=== PATIENT | male | born 1965 | race Caucasian/White ===

== ENCOUNTER 2020-09-02 19:21 | Emergency (ER) | payer OTHER, SELFPAY ==
--- NOTE | ~2020-09-02 | CT_ITS ---
EXAMINATION: CT ABDOMEN AND PELVIS WITHOUT CONTRAST CLINICAL INFORMATION: Abdominal pain COMPARISON: None TECHNIQUE: Multidetector volumetric imaging was performed from the superior aspect of the liver through the pubic symphysis. Sagittal and coronal reformatted images were obtained on the technologist's workstation. This CT examination was performed using dose optimization techniques as appropriate, variously including the following: *Automated exposure control *Adjustment of mA and/or kV according to patient size (this includes techniques or standardized protocols for targeted exams where dose is matched to indication/reason for exam; i.e. extremities or head) *Use of iterative reconstruction technique DLP: 731 mGy-cm FINDINGS: LUNG BASES: The visualized lung bases are unremarkable. LIVER, GALLBLADDER, AND BILIARY TREE: The liver is normal in size, shape, and attenuation. No focal hepatic lesion or biliary ductal dilatation is present. Status post cholecystectomy. PANCREAS: Unremarkable. SPLEEN: Unremarkable. ADRENAL GLANDS: Unremarkable. KIDNEYS AND URETERS: The kidneys are normal in size, shape, and attenuation. 2 barely perceptible punctate calculi seen in the right kidney (see mosqueda images). No hydronephrosis, hydroureter, or larger or left-sided calculi seen. A 5.2 x 4.7 x 6.8 cm benign Bosniak class I right renal cyst is present. No solid masses are seen. No perinephric stranding. BLADDER: Unremarkable. GASTROINTESTINAL TRACT: The small and large bowel are unremarkable. The appendix is not seen. ABDOMINAL WALL: No significant hernia is appreciated. Small direct inguinal hernias are seen containing only fat. LYMPH NODES: Normal. VASCULAR: Unremarkable. PELVIC VISCERA: Unremarkable. OSSEOUS STRUCTURES: Unremarkable. CT/CT abdomen pelvis wo con IMPRESSION: A significant abnormality crossing acute abdominal pain is not seen. Incidental note is made of cholecystectomy, right renal cyst and tiny punctate nonobstructing right renal calculi.
[2020-09-02 20:56] VITALS: BP 94/52; PULSE 77; RESP 18; TEMP 36.7; O2SAT 97; BMI 32.1
[2020-09-02 21:31] LABS: Glucose Urine UA NEG (NEG); Leukocyte Esterase Urine NEG (NEG); Nitrite Urine NEG (NEG); Urine Blood NEG (NEG); Urine Ketones NEG (NEG); Urine Protein NEG (NEG-TRACE)
[2020-09-02 21:32] LABS: Appearance Urine CLEAR; Color Urine YELLOW
[2020-09-02 23:33] VITALS: BP 160/103; PULSE 69; RESP 18; TEMP 36.8; O2SAT 100
--- NOTE | 2020-09-03 00:08 | ED.ABDPAIN ---
HPI - Abdominal Pain General Chief Complaint: Abdominal Pain Stated Complaint: Abdominal pain/hand cramps Time Seen by Provider: 09/02/20 23:56 Source: patient and application support developer Mode of arrival: ambulatory Limitations: no limitations History of Present Illness HPI narrative: 54-year-old male came in with multiple complaints. Abdominal pain/rectal pain been going for few months, pain is intermittent, described as a sharp pain in the anal area, no trauma or fall recently, no fever or chills, nothing makes the pain worse, nothing make it better. Patient now has no rectal pain or discomfort. Patient also is complaining of itching in the scrotal area for the past few months, patient sexually not active for the last 3 years, no penile discharge, no rashes. Patient also complained of bilateral hands swelling and tingling only at nighttime for the past year. Related Data Allergies Allergy/AdvReac Type Severity Reaction Status Date / Time No Known Allergies Allergy Verified 09/02/20 20:53 [No Known Allergies*] Review of Systems Review of Systems All other systems are reviewed and are negative Constitutional: Reports as per HPI and Reports no additional constitutional complaints Eyes: Reports as per HPI and Reports no additional eye complaints Reports system reviewed and no additional complaints, except as documented Cardiovascular: Reports as per HPI and Reports no additional cardiovascular complaints Respiratory: Reports as per HPI and Reports no additional respiratory complaints Gastrointestinal: Reports as per HPI and Reports no additional gastrointestinal complaints Genitourinary: Reports no additional female genitourinary complaints Musculoskeletal: Reports no additional musculoskeletal complaints Skin/Breast: Reports system reviewed and no additional complaints, except as docu Psychiatric: Reports no additional psychiatric complaints Endocrine: Reports no additional endocrine complaints Hematologic/Lymphatic: Reports no additional hematologic/lymphatic complaints Allergic/Immunologic: Reports no additional allergic/immunologic complaints Reports system reviewed and no additional complaints, except as documented and Reports Abnormal speech present Physical Exam Vital Signs: Vital Signs: Last Vital Signs Temp 98.3 F 09/02/20 23:33 Pulse 69 09/02/20 23:33 Resp 18 09/02/20 23:33 BP 160/103 H 09/02/20 23:33 Pulse Ox 100 09/02/20 23:33 Body Mass Index 32.1 Vital signs have been reviewed as appeared to be correct. Blood pressure is high. Heart rate normal. Respiration rate normal. Temperature normal. Oxygen saturation normal. Appearance: Alert. Oriented X3. No acute distress. Head: Normal external exam. Normocephalic. Atraumatic. No Mireles signs noted. No raccoon eyes noted Eyes: PERRLA. EOMI. Conjunctiva and sclera normal. Eyelids normal. ENT: TM's Normal. Pharynx normal. Uvula midline. Moist mucous membranes. No trismus noted. No drooling noted. No muffled voice noted. Neck: Normal inspection. Neck supple. FROM. No adenopathy. Thyroid Normal. No meningeal signs. No neck mass noted. CVS: Normal heart rate and rhythm. Heart sound normal. No murmurs noted. Pulses normal throughout. Respiratory: No respiratory distress. Painless inspiration. Breath sounds normal. No wheezes/rales/rhonchi noted. Chest nontender. No accessory muscle usage noted or decreased air movement noted. Abdomen: Soft and nontender. Bowel sounds normal in all 4 quadrants. No distention noted. No organomegaly noted. No visible injury noted. Rectal exam: Good tone, no palpable mass or fluctuation, no visible external hemorrhoid or palpable internal hemorrhoid. exam: Normal external uncircumcised genitalia, scrotal/testicular appear normal size, positive cremaster reflex bilaterally. No rash. Back: No CVA tenderness. Full range of motion noted. Skin: Skin warm and dry. Normal skin color. Normal skin turgor. No rashes/lesions/lacerations noted. Extremities: No lower extremity edema. Extremities exhibit normal range of motion. Extremities nontender. Neuro: Oriented X 3. No motor deficit. No sensory deficit. Reflexes normal. Course Course Course Narrative: Assessment and plan. 54-year-old male came in with multiple complaints. Chronic anal intermittent pain: Physical exam and CT of the abdomen pelvis is showing no abnormality in the rectal area. Chronic itching of the scrotum: Benadryl for symptomatic control. Will discharge the patient to follow-up with PCP. MDM - Abdominal Pain Lab Data Result diagrams: 09/03/20 01:16 09/03/20 01:16 Labs: Lab Results 09/02/20 09/03/20 Range/Units 21:12 01:16 WBC 4.9 (4.8-10.8) X10*3/uL RBC 4.00 L (4.60-5.80) X10*6/uL Hgb 12.0 L (14.0-18.0) g/dl Hct 37.3 L (42-52) % MCV 93.3 (80-98) fL MCH 30.0 (27.0-33.0) pg MCHC 32.2 (31.0-36.0) g/dl RDW 11.9 (11.0-16.0) % Plt Count 201 (160-400) X10*3/uL MPV 9.3 L (9.4-12.4) fL Immature Gran % (Auto) 0.4 (0.0-0.4) % Neut % (Auto) 45.6 (45-73) % Lymph % (Auto) 34.4 (20-40) % [place] % (Auto) 10.8 (2-11) % Eos % (Auto) 8.4 H (0-4) % Baso % (Auto) 0.4 (0-2) % Lymph # (Auto) 1.7 (1.2-4.9) X10*3/uL [place] # (Auto) 0.5 (0.1-1.2) X10*3/uL Eos # (Auto) 0.4 (0.0-0.4) X10*3/uL Baso # (Auto) 0.0 (0.0-0.2) X10*3/uL Abs Immat Gran (auto) 0.02 (0.00-0.03) X10*3/uL Absolute Neuts (auto) 2.2 (2.0-8.3) X10*3/uL Absolute Nucleated RBC 0.000 (0.0-0.012) X10*3/uL Nucleated RBC % (auto) 0.0 (0.0-0.2) /100WBC Urine Color YELLOW Urine Appearance CLEAR Urine pH 7.0 (5.0-8.0) Ur Specific [place] 1.020 (1.005-1.025) Urine Protein NEG (NEG-TRACE) MG/DL Urine Glucose (UA) NEG (NEG) MG/DL Urine Ketones NEG (NEG) MG/DL Urine Blood NEG (NEG) Urine Nitrite NEG (NEG) Ur Leukocyte Esterase NEG (NEG) Imaging Data CT scan - abdomen: Radiologist's impression: A significant abnormality crossing acute abdominal pain is not seen. Incidental note is made of cholecystectomy, right renal cyst and tiny punctate nonobstructing right renal calculi. Discharge Plan Discharge Clinical Impression: Anal pain Patient Disposition: Home, Self-Care Instructions: Abdominal Pain (ED) Referrals: Physician,Unknown [Primary Care Provider] - 2 days [facility] Past Medical History Medical History Anxiety Chronic pain Depression Difficulty sleeping HTN (hypertension) Social History Social History Advance Directives: No
[2020-09-03] MEDS: 0.9 % Sodium Chloride 1,000 ML 999 ML IVCONT (01:19)
[2020-09-03 01:22] LABS: MANUAL DIFF FLAG NO
[2020-09-03 01:23] LABS: Basophils Percent Auto 0.4 % (0-2); Eosinophils Absolute Auto 0.4 X10*3/uL (0.0-0.4); Eosinophils Percent Auto 8.4 % (0-4); Hematocrit 37.3 % (42-52); Imm Gran Abs Auto 0.02 X10*3/uL (0.00-0.03); Imm Gran Pct Auto 0.4 % (0.0-0.4); Lymphocytes Absolute Auto 1.7 X10*3/uL (1.2-4.9); Lymphocytes Percent Auto 34.4 % (20-40); Mean Corpuscular HGB Conc 32.2 g/dl (31.0-36.0); Mean Corpuscular Volume 93.3 fL (80-98); Mean Platelet Volume 9.3 fL (9.4-12.4); Monocytes Absolute Auto 0.5 X10*3/uL (0.1-1.2); Monocytes Percent Auto 10.8 % (2-11); Neutrophils Absolute Auto 2.2 X10*3/uL (2.0-8.3); Neutrophils Percent Auto 45.6 % (45-73); Platelet Count 201 X10*3/uL (160-400); Red Cell Distribution Width 11.9 % (11.0-16.0); White Blood Count 4.9 X10*3/uL (4.8-10.8)
--- NOTE | 2020-09-03 01:26 | PC.NURSE ---
18g IV access established in left AC. Labs drawn and sent for analysis. Awaiting results. Dr.Elmogy watts.
[2020-09-03 01:46] LABS: Alanine Aminotransferase 62 U/L (0-40); Albumin Level 3.7 g/dL (3.5-5.0); Alkaline Phosphatase 113 U/L (39-117); Anion Gap 11 (12-20); Aspartate Amino Transferase 53 U/L (5-37); Bilirubin Direct 0.2 mg/dL (0.0-0.5); Bilirubin Total 0.5 mg/dL (0.0-1.0); Blood Urea Nitrogen 16 mg/dL (9-16); Calcium 9.2 mg/dL (8.4-10.2); Carbon Dioxide 27 mmol/L (22-29); Chloride 104 mmol/L (96-108); Creatinine Clr Calc Pharmacy 120.7; Estimated Glomerular Filt Rate > 60; Glucose Random 90 mg/dL (60-115); Lipase 14 U/L (8-78); Potassium 4.3 mmol/L (3.3-5.1); Sodium 138 mmol/L (135-145); Total Protein 6.7 g/dL (6.5-8.0)
[2020-09-03 02:12] LABS: Troponin-I High Sensitivity < 3.5 ng/L (<3.5-35.0)
== END 2020-09-03 02:40 | disposition home or self-care (01) ==
PROVIDERS: Emergency Provider Emergency Medicine
DX: K62.89 Other specified diseases of anus and rectum (principal); R10.9 Unspecified abdominal pain; I10 Essential (primary) hypertension; F41.9 Anxiety disorder, unspecified
CPT/HCPCS: 36415; 74176; 80048; 80076; 81003; 83690; 84484; 85025; 96360; 99283; 99284

== ENCOUNTER 2020-11-05 15:28 | Emergency (ER) | payer OTHER, SELFPAY ==
--- NOTE | 2020-11-05 15:48 | PC.NURSE ---
AWAITING REJOINER FOR TRIAGE
[2020-11-05 15:57] VITALS: BP 166/85; PULSE 81; RESP 16; TEMP 37.1; O2SAT 97; BMI 27.8
--- NOTE | 2020-11-05 16:05 | ED.URI ---
HPI - URI/Sore Throat General Chief Complaint: Upper Respiratory Symptoms <LALA Hsu Last Filed: 11/05/20 16:24> Stated Complaint: stuffy nose <LALA Hsu Last Filed: 11/05/20 16:24> Time Seen by Provider: 11/05/20 15:51 <LALA Hsu Last Filed: 11/05/20 16:24> Source: patient and humidifier operator <LALA Hsu Last Filed: 11/05/20 16:24> Limitations: language barrier <LALA Hsu Last Filed: 11/05/20 16:24> History of Present Illness HPI Narrative: 55-year-old Israeli-speaking male past medical history of depression who is presenting to the emergency department with concerns for nasal congestion times several days. He states he has been taking Sudafed with no relief, recently ran out. He denies being around sick contacts. He denies headaches, ear pain, sore throat, vomiting, diarrhea. No rashes. No shortness of breath or chest pain reported. He is upset because he lost his wallet with all his insurance cards and money yesterday, and has been unable to buy medications [id number]. <LALA Hsu Last Filed: 11/05/20 16:24> Related Data Home Medications: Previous Rx's Medication Instructions Recorded fluticasone propionate [Flonase 1 spray INTRANASAL DAILY #16 g 11/05/20 Allergy Relief] <LALA Hsu Last Filed: 11/05/20 16:24> Allergies/Adverse Reactions: Allergies Allergy/AdvReac Type Severity Reaction Status Date / Time No Known Allergies Allergy Verified 09/02/20 20:53 [No Known Allergies*] <LALA Hsu Last Filed: 11/05/20 16:24> Review of Systems Constitutional: Constitutional: Denies fever(s) <LALA Hsu Last Filed: 11/05/20 16:24> Eyes: Eyes: Reports no additional eye complaints <LALA Hsu Last Filed: 11/05/20 16:24> ENT: Denies dizziness, Denies otalgia, Reports nasal congestion and Denies sore throat <LALA Hsu - Last Filed: 11/05/20 16:24> Cardiovascular: Cardiovascular: Denies dyspnea <LALA Hsu - Last Filed: 11/05/20 16:24> Respiratory: Respiratory: Denies cough and Denies dyspnea <LALA Hsu - Last Filed: 11/05/20 16:24> Gastrointestinal: Gastrointestinal: Denies abdominal pain, Denies diarrhea and Denies vomiting <LALA Hsu - Last Filed: 11/05/20 16:24> Genitourinary: Comments: denies dysuria <LALA Hsu - Last Filed: 11/05/20 16:24> Musculoskeletal: Musculoskeletal: Denies joint swelling <LALA Hsu - Last Filed: 11/05/20 16:24> Neurologic: Denies dizziness <LALA Hsu - Last Filed: 11/05/20 16:24> Hematologic/Lymphatic: Hematologic/Lymphatic: Denies easy bleeding <LALA Hsu - Last Filed: 11/05/20 16:24> [facility] Past Medical History Medical History: Medical History Anxiety Chronic pain Depression Difficulty sleeping HTN (hypertension) <LALA Hsu - Last Filed: 11/05/20 16:24> Social History Social History: Social History (Updated 11/05/20 @ 16:21 by LALA Hsu) Patient Tobacco Use Status: Never used Tobacco Advance Directives: No Advance Directives Information Provided: No <LALA Hsu - Last Filed: 11/05/20 16:24> Physical Exam Vital Signs: Vital Signs: Last Vital Signs Temp 98.8 F 11/05/20 15:57 Pulse 81 11/05/20 15:57 Resp 16 11/05/20 15:57 BP 166/85 H 11/05/20 15:57 Pulse Ox 97 11/05/20 15:57 Body Mass Index 27.8 <LALA Hsu - Last Filed: 11/05/20 16:24> Vital Signs: Last Vital Signs Temp 98.8 F 11/05/20 15:57 Pulse 81 11/05/20 15:57 Resp 16 11/05/20 15:57 BP 166/85 H 11/05/20 15:57 Pulse Ox 97 11/05/20 15:57 Body Mass Index 27.8 <Ciro Gautam MD - Last Filed: 12/14/20 08:54> Const: Other: sitting upright in chair rubbing his nose <Kamila Lewis PA - Last Filed: 11/05/20 16:24> Orientation/consciousness: patient oriented x3 <Kamila Lewis PA - Last Filed: 11/05/20 16:24> HENMT: Other: + nasal congestion, no rhinorrhea, no sinus tenderness to palpation <Kamila Lewis PA - Last Filed: 11/05/20 16:24> Head: Yes atraumatic <LALA Hsu - Last Filed: 11/05/20 16:24> Eyes: Pupils: Equal, round and reactive pupils present <Kamila Lewis PA - Last Filed: 11/05/20 16:24> Neck: Neck: Yes full ROM and Yes supple <LALA Hsu - Last Filed: 11/05/20 16:24> Resp: Auscultation: clear to auscultation bilaterally <Kamila Lewis PA - Last Filed: 11/05/20 16:24> Cardio: Rate: regular rate <LALA Hsu - Last Filed: 11/05/20 16:24> Rhythm: regular rhythm <Kamila Lewis PA - Last Filed: 11/05/20 16:24> GI: Inspection: No distended <Kamila Lewis PA - Last Filed: 11/05/20 16:24> Back/Spine/Pelvis: Other: full ROM <Kamila Lewis PA - Last Filed: 11/05/20 16:24> Skin: Other: warm, no rash <Kamila Lewis PA - Last Filed: 11/05/20 16:24> Neuro: General: patient oriented x3 <LALA Hsu - Last Filed: 11/05/20 16:24> Cranial nerves: Yes Equal, round and reactive pupils present <LALA Hsu - Last Filed: 11/05/20 16:24> Extrem: General: Yes full ROM <LALA Hsu - Last Filed: 11/05/20 16:24> Psych: Affect: normal affect <LALA Hsu - Last Filed: 11/05/20 16:24> Course Course Course Narrative: I have reviewed the chart <Ciro Gautam MD - Last Filed: 12/14/20 08:54> MDM - URI/Sore Throat MDM Narrative Medical decision making narrative: 55-year-old male presenting to the emergency department with nasal congestion Vital significant for hypertension, otherwise hemodynamically stable Patient appears to have nasal congestion, was using Sudafed but then ran out. Will give him for monica the ED. Low concern for bacterial sinusitis given no unilateral sinus fullness, no tenderness to palpation, afebrile. No evidence of otitis media oropharynx is clear. No wheezing or stridor. Patient has no signs of systemic illness. No sepsis. No rashes. No evidence of occular swelling or erythema. Discussed, symptomatic management. Return precautions were discussed with humidifier operator at bedside. <LALA Hsu - Last Filed: 11/05/20 16:24> Lab Data Labs: Lab Results 11/05/20 Range/Units 16:07 Coronavirus (PCR) NEGATIVE (Negative) Influenza Type A (PCR) NEGATIVE (Negative) Influenza Type B (PCR) NEGATIVE (Negative) RSV RNA Qual (PCR) NEGATIVE (Negative) <LALA Hsu - Last Filed: 11/05/20 16:24> Lab Results 11/05/20 Range/Units 16:07 Coronavirus (PCR) NEGATIVE (Negative) Influenza Type A (PCR) NEGATIVE (Negative) Influenza Type B (PCR) NEGATIVE (Negative) RSV RNA Qual (PCR) NEGATIVE (Negative) <Ciro Gautam MD - Last Filed: 12/14/20 08:54> Discharge Plan Discharge Clinical Impression: Nasal congestion <LALA Hsu Last Filed: 11/05/20 16:24> Patient Disposition: Home, Self-Care <LALA Hsu - Last Filed: 11/05/20 16:24> Instructions: Cold Symptoms (ED) <LALA Hsu - Last Filed: 11/05/20 16:24> Additional Instructions: Your seen in the emergency department for nasal congestion. You are given Flonase for your nasal congestion. Please return if you develop headaches, dizziness, vision changes, difficulty breathing, coughing, chest pain, rashes, or any other concerning symptoms. Use the decongestant as prescribed. <LALA Hsu - Last Filed: 11/05/20 16:24> Prescriptions: New fluticasone propionate [Flonase Allergy Relief] 50 mcg/actuation spray,suspension 1 spray intranasal DAILY Qty: 16 RF: 0 <LALA Hsu - Last Filed: 11/05/20 16:24> Interventions: ED Discharge Assessment Last Done: 11/05/20 16:49 <LALA Hsu - Last Filed: 11/05/20 16:24> Discharge Date/Time: 11/05/20 16:49 <LALA Hsu - Last Filed: 11/05/20 16:24> Print Language: Israeli <LALA Hsu - Last Filed: 11/05/20 16:24>
[2020-11-05] MEDS: Fluticasone Propionate Nasal 16 GM SPRAY 2 SPRAY NOSTRIL-B (16:46)
[2020-11-05 17:15] LABS: Influenza A PCR NEGATIVE (Negative); Influenza B PCR NEGATIVE (Negative); Resp Syncy Virus RNA Qual PCR NEGATIVE (Negative); SARS COV2 PCR INHOUSE NEGATIVE (Negative)
== END 2020-11-05 16:49 | disposition home or self-care (01) ==
PROVIDERS: Physician Assistant Medical; Emergency Provider Emergency Medicine; PCP Nurse Practitioner Family
DX: R09.81 Nasal congestion (principal); I10 Essential (primary) hypertension; Z20.822 Contact with and (suspected) exposure to COVID-19
CPT/HCPCS: 0241U; 36415; 99283

== ENCOUNTER 2021-04-28 15:31 | Emergency (ER) | payer OTHER, SELFPAY ==
[2021-04-28 15:52] VITALS: BP 132/88; PULSE 91; RESP 18; TEMP 36.4; O2SAT 96; BMI 29.0
[2021-04-28 16:15] LABS: MANUAL DIFF FLAG NO
[2021-04-28 16:18] LABS: Hematocrit 44.3 % (42.0-52.0); Hemoglobin 14.7 g/dl (14.0-18.0); Imm Gran Abs Auto 0.01 X10*3/uL (0.00-0.03); Imm Gran Pct Auto 0.3 % (0.0-0.4); Lymphocytes Absolute Auto 1.1 X10*3/uL (1.2-4.9); Lymphocytes Percent Auto 30.2 % (20-40); Mean Corpuscular HGB Conc 33.2 g/dl (31.0-36.0); Mean Corpuscular Volume 90.4 fL (80.0-98.0); Mean Platelet Volume 9.9 fL (9.4-12.4); Monocytes Absolute Auto 0.5 X10*3/uL (0.1-1.2); Monocytes Percent Auto 14.2 % (2-11); Neutrophils Absolute Auto 2.1 x10*3/uL (2.0-8.3); Neutrophils Percent Auto 55.3 % (45-73); Platelet Count 184 X10*3/uL (160-400); White Blood Count 3.7 X10*3/uL (4.8-10.8)
[2021-04-28 16:43] LABS: Alanine Aminotransferase 125 U/L (0-40); Albumin Level 4.2 g/dL (3.5-5.0); Alkaline Phosphatase 108 U/L (39-117); Anion Gap 12 (12-20); Aspartate Amino Transferase 78 U/L (5-37); Bilirubin Total 0.5 mg/dL (0.0-1.0); Blood Urea Nitrogen 15 mg/dL (9-16); Calcium 9.4 mg/dL (8.4-10.2); Carbon Dioxide 26 mmol/L (22-29); Chloride 100 mmol/L (96-108); Creatinine Clr Calc Pharmacy 85.7; Estimated Glomerular Filt Rate > 60; Glucose Random 121 mg/dL (60-115); Potassium 4.1 mmol/L (3.3-5.1); Sodium 134 mmol/L (135-145); Total Protein 8.1 g/dL (6.5-8.0)
[2021-04-28 16:44] LABS: COVID-19 Test Positive (Negative); IDNOW Serial# 9DD0AD1C
--- NOTE | 2021-04-28 22:11 | ED.GENADULT ---
HPI - General Adult General Chief complaint: General Medical Stated complaint: Weakness/Bodyaches Time Seen by Provider: 04/28/21 21:38 Source: patient Mode of arrival: ambulatory Limitations: no limitations History of Present Illness HPI narrative: Patient comes to emergency room complaining diffuse abdominal discomfort, nausea vomiting and diarrhea. Denies fever, denies chest pain or shortness of breath. Patient states that his daughter recently tested positive for COVID-19 Related Data Previous Rx's Medication Instructions Recorded fluticasone propionate 50 1 spray INTRANASAL DAILY #16 g 11/05/20 mcg/actuation nasal spray,suspension (Flonase Allergy Relief) ibuprofen 600 mg tablet 600 mg PO Q6H PRN #20 tab 04/28/21 loperamide 2 mg tablet 2 mg PO Q4H PRN #14 tab 04/28/21 ondansetron HCl 4 mg tablet 4 mg PO Q6H PRN #14 tab 04/28/21 (Zofran) Allergies Allergy/AdvReac Type Severity Reaction Status Date / Time No Known Allergies Allergy Verified 09/02/20 20:53 [No Known Allergies*] Review of Systems Review of Systems: Constitutional : No Weight loss, No Fever, No Chills, No Night Sweats, complaining of Fatigue, No Malaise ENT/Mouth : No Hearing loss, No Ear Pain, No Nasal Congestion, No Sinus Pain, No Hoarseness, No sore throat, No Rhinorrhea, No Swallowing Difficulty Eyes: No Eye Pain, No Swelling, No Redness, No Foreign Body, No Discharge, No Vision Changes Cardiovascular : No Chest Pain, No SOB, No Dyspnea on Exertion, No Orthopnea, No Edema, No Palpitations Respiratory : No Cough, No Sputum, No Wheezing, No Smoke Exposure, No Dyspnea Gastrointestinal : Complaining of nausea, vomiting, diarrhea, diffuse abdominal cramping intermittently. Genitourinary : no irregular bleeding, No Dysuria, No Urinary Frequency, No Hematuria, No Urinary Incontinence, No Urgency, No Flank Pain, No Urinary Flow Changes, No Hesitancy Musculoskeletal : No joint pain, No Myalgias, No Joint Swelling Skin : No Skin Lesions, No rash Neuro : No Weakness, No Numbness, No Paresthesias, No Loss of Consciousness, No Dizziness, No Headache Psych : No Anxiety/Panic, No Depression, No SI/HI/AH/VH, No Social Issues, Heme/Lymph: No Bruising, No Bleeding,No Lymphadenopathy Endocrine : No Polyuria, No Polydipsia, No Temperature Intolerance PMF Past Medical History Medical History Anxiety Chronic pain Depression Difficulty sleeping HTN (hypertension) Social History Social History (Updated 11/05/20 @ 16:21 by LALA Hsu) Patient Tobacco Use Status: Never used Tobacco Advance Directives: No Advance Directives Information Provided: No Physical Exam Vital Signs: Vital Signs: Last Vital Signs Temp 97.5 F 04/28/21 15:52 Pulse 91 04/28/21 15:52 Resp 18 04/28/21 15:52 BP 132/88 04/28/21 15:52 Pulse Ox 96 04/28/21 15:52 BMI result Body Mass Index 29.0 Const: Other: Appearance: Alert. Oriented X3. No acute distress. Well-appearing Eyes: Pupils equal, round and reactive to light. ENT: Pharynx normal. Neck: Normal inspection. Neck supple. No lymph nodes noted. No crepitus CVS: Normal heart rate and rhythm. Pulses normal. Normal S1 and S2 Respiratory: No respiratory distress. Breath sounds normal. No Wheezing. No rales Abdomen: Soft and nontender. No rigidity. No distention. Skin: Skin warm and dry. Normal skin color. Normal skin turgor. Extremities: No lower extremity edema. No Lacerations. No Rash Neuro: Oriented X 3. No motor deficit. No sensory deficit. Moving all extermities. No slurred speech. Course Course Course Narrative: I discussed the labs with the patient, patient tested positive for COVID-19. Patient was given 1 dose of p.o. Zofran, loperamide and ibuprofen. Patient instructed to follow-up with his primary care physician Medical Decision Making Lab Data Result diagrams: 04/28/21 16:09 04/28/21 16:09 Labs: Lab Results 04/28/21 04/28/21 04/28/21 Range/Units 16:09 16:09 16:09 WBC 3.7 L (4.8-10.8) X10*3/uL RBC 4.90 (4.60-5.80) X10*6/uL Hgb 14.7 (14.0-18.0) g/dl Hct 44.3 (42.0-52.0) % MCV 90.4 (80.0-98.0) fL MCH 30.0 (27.0-33.0) pg MCHC 33.2 (31.0-36.0) g/dl RDW 12.0 (11.0-16.0) % Plt Count 184 (160-400) X10*3/uL MPV 9.9 (9.4-12.4) fL Immature Gran % (Auto) 0.3 (0.0-0.4) % Neut % (Auto) 55.3 (45-73) % Lymph % (Auto) 30.2 (20-40) % [place] % (Auto) 14.2 H (2-11) % Eos % (Auto) 0.0 (0-4) % Baso % (Auto) 0.0 (0-2) % Lymph # (Auto) 1.1 L (1.2-4.9) X10*3/uL [place] # (Auto) 0.5 (0.1-1.2) X10*3/uL Eos # (Auto) 0.0 (0.0-0.4) X10*3/uL Baso # (Auto) 0.0 (0.0-0.2) X10*3/uL Abs Immat Gran (auto) 0.01 (0.00-0.03) X10*3/uL Absolute Neuts (auto) 2.1 (2.0-8.3) x10*3/uL Absolute Nucleated RBC 0.000 (0.0-0.012) X10*3/uL Nucleated RBC % (auto) 0.0 (0.0-0.2) /100WBC Sodium 134 L (135-145) mmol/L Potassium 4.1 (3.3-5.1) mmol/L Chloride 100 (96-108) mmol/L Carbon Dioxide 26 (22-29) mmol/L Anion Gap 12 (12-20) BUN 15 (9-16) mg/dL Creatinine 1.21 (0.5-1.4) mg/dL Estim Creat Clear Calc 85.7 Estimated GFR > 60 Random Glucose 121 H (60-115) mg/dL Calcium 9.4 (8.4-10.2) mg/dL Total Bilirubin 0.5 (0.0-1.0) mg/dL AST 78 H (5-37) U/L ALT 125 H (0-40) U/L Alkaline Phosphatase 108 (39-117) U/L Total Protein 8.1 H D (6.5-8.0) g/dL Albumin 4.2 (3.5-5.0) g/dL COVID-19 (MELINA) Positive A (Negative) COVID-19 Clin Com See Note Discharge Plan Discharge Clinical Impression: COVID-19, Nausea vomiting and diarrhea Patient Disposition: Home, Self-Care Instructions: COVID-19 (Coronavirus Disease 2019) (ED) Additional Instructions: You need to quarantine at home for 14 days. Please follow-up with your primary care physician tomorrow. If you have any worsening or new symptoms, please return to the emergency room or call 911 Prescriptions: New ibuprofen 600 mg tablet 600 mg PO Q6H PRN (Reason: fever or pain) Qty: 20 RF: 0 ondansetron HCl [Zofran] 4 mg tablet 4 mg PO Q6H PRN (Reason: nausea and vomiting) Qty: 14 RF: 0 loperamide 2 mg tablet 2 mg PO Q4H PRN (Reason: loose stool) Qty: 14 RF: 0 No Action fluticasone propionate [Flonase Allergy Relief] 50 mcg/actuation spray,suspension 1 spray intranasal DAILY Qty: 16 RF: 0
[2021-04-28 22:50] VITALS: PULSE 83; O2SAT 100
[2021-04-28] MEDS: Loperamide HCl 2 MG CAPSULE 4 MG PO (22:51)
[2021-04-28] MEDS: Ibuprofen 600 MG TABLET PO (22:52)
[2021-04-28] MEDS: Ondansetron ODT 4 MG TAB.RAPDIS TRANSLINGU (22:52)
[2021-04-28 23:00] VITALS: BP 147/96
== END 2021-04-28 23:00 | disposition home or self-care (01) ==
PROVIDERS: Emergency Provider Emergency Medicine; PCP Nurse Practitioner Family
DX: U07.1 COVID-19 (principal); R11.2 Nausea with vomiting, unspecified; R19.7 Diarrhea, unspecified; M79.10 Myalgia, unspecified site; I10 Essential (primary) hypertension
CPT/HCPCS: 36415; 80053; 85025; 87635; 99283; 99284

== ENCOUNTER 2022-05-19 19:01 | Emergency (ER) | payer OTHER, SELFPAY ==
[2022-05-19 19:07] VITALS: BP 120/84; PULSE 90; O2SAT 95
[2022-05-19 19:17] VITALS: BP 152/91; PULSE 87; RESP 18; TEMP 36.8; O2SAT 97; BMI 32.1
--- OUTSIDE RECORDS SUMMARY | 2022-05-19 20:14 | XMS_ITS | Continuity of Care Document ---
:1965 Author Organization [facility] Address [address] [place] [address]- Care Team Providers Name Role Phone Rob Rubin NP Primary Care Physician Encounter [facility] [place] Date(s): 03/11/21 - 04/30/[address] [address]- Attending Physician: Not on Staff, Attending MD Referring Physician: Rob Rubin NP Allergies, Adverse Reactions, Alerts Substance Reaction Severity Status No known allergies Active Immunizations Given and Recorded Vaccine Date Status Refusal Reason tetanus/diphtheria/pertussis, acel(Tdap) 09/18/15 Given Medications albuterol 0.083% inhalation solution 3 mL = 2.5 mg, Inhalation, Every 6 hours, PRN for wheezing, # 25 each, 5 Refills, Maintenance, 09/13/20 13:36:00 EDT, Solution, [facility] #[id number], 180, cm, 09/13/20 12:28:00 EDT, Height, 95, kg, 09/09/20 0:07:00 EDT, Dry Weight Start Date: 09/13/20 Status: Orderedalbuterol 90 mcg/inh inhalation powder 2 puffs, Inhalation, Every 4 hours, PRN as needed, with spacer chamber take 2-6 puffs every 4 hours for 1 day then as needed, # 1 each, 4 Refills, Maintenance, 03/11/21 12:17:00 EDT, Powder, [facility] #[id number], 2 puffs Inhalation Every 4 merlene... Start Date: 03/11/21 Status: Orderedalbuterol-ipratropium 3 mg-0.5 mg/3 ml inhalation solution 3 mL, Neb, Once, albuterol Lot # [id number] Exp. 06/23/18 Ipratropium Lot # [id number] Exp. 09/21/19, 0 Refills, Maintenance, 03/15/18 15:30:00 EDT Start Date: 03/15/18 Stop Date: 05/23/18 Status: OrderedAmbien 10 mg oral tablet 1 tablet = 10 mg, By Mouth, Daily at bedtime, PRN for sleep, 0 Refills, Maintenance, 09/09/20 0:03:00 EDT, Tablet, Partial fill upon patient request if the prescription is for a schedule II opioid drug. Start Date: 09/09/20 Status: OrderedbuPROPion 300 mg/24 hours (XL) oral tablet, extended release TAKE 1 TABLET BY MOUTH EVERY MORNING AFTER FINISHING THE 150 MG TABS FOR MOOD Start Date: 03/16/21 Status: OrderedbusPIRone 5 mg oral tablet TAKE 1 TABLET BY MOUTH TWICE DAILY 20 MINUTES BEFORE MEALS DIRECTED Start Date: 03/16/21 Status: Orderedduloxetine 60 mg oral enteric coated capsule TAKE 1 CAPSULE BY MOUTH TWICE DAILY Start Date: 03/16/21 [facility]: [facility] See Instructions, # 1 each, Refills 0, Tot. Refills 0, Maintenance, DX I10 Need 99+ months, 03/11/2112:18:00 EDT, Supply Start Date: 03/11/21 Status: Orderedibuprofen 800 mg oral tablet 1, tablet, By Mouth, Every 8 hours, # 30 tablet, Refills 0, Route to Pharmacy Electronically, [facility] #[id number], 180, cm, 09/13/20 12:28:00 EDT, Height, 95, kg, 09/09/20 0:07:00 EDT, Dry Weight Start Date: 01/29/21 Status: OrderedIpratropium 0.02% inhalation jose 500 mcg, Neb, 4 times a day, lot# [id number] exp august 2019, Refills 0, Maintenance, 03/25/18 17:17:52 EDT Start Date: 03/25/18 Status: Orderedlisinopril 10 mg oral tablet 1, tablet, By Mouth, Daily, # 90 tablet, Refills 1, Route to Pharmacy Electronically, [id number], 180, cm, 03/11/21 11:20:00 EDT, Height, 95, kg, 09/09/20 0:07:00 EDT, Dry Weight Start Date: 04/07/21 Status: OrderedNebulizer/Compressor See Instructions, # 1 each, Maintenance, use with albuterol solution, 09/13/20 13:36:00 EDT, Compound, 180, cm, 09/13/20 12:28:00 EDT, Height, 95, kg, 09/09/20 0:07:00 EDT, Dry Weight Start Date: 09/13/20 Status: Orderedomeprazole 20 mg oral enteric coated capsule 1 capsule, By Mouth, Daily, # 90 capsule, 1 [id number], 180, cm, 03/11/21 11:20:00 EDT, Height, 95, kg, 09/09/20 0:07:00 EDT, Dry Weight Start Date: 04/07/21 Status: Ordered Problem List Condition Effective Dates Status Health Status Informant Anxiety(Confirmed) Active Asthma(Confirmed) Active Passage of loose stools(Confirmed) Active Postprandial epigastric Active pain(Confirmed) Hypertension(Confirmed) Active Lower back pain(Confirmed) Active Moderate major depression(Confirmed) Active Prediabetes(Confirmed) Active Encounter for screening Active colonoscopy(Confirmed) Social History Social History Type Response Smoking Status Never smoker entered on: 09/09/15 Sex
--- OUTSIDE RECORDS SUMMARY | 2022-05-19 20:14 | XMS_ITS | Continuity of Care Document ---
:1965 Author Organization [facility] Address [address] [place] [id number]- Care Team Providers Name Role Phone Scottie PACK, Rob Primary Care Physician [facility] [id number] Date(s): 01/30/22 - 03/01/[address] [address]- Attending Physician: Edin Choudhury Admitting Physician: Admtr, Ar8 Referring Physician: Admtr, Ar8 Allergies, Adverse Reactions, Alerts No Known Allergies Immunizations Given and Recorded Vaccine Date Status Refusal Reason tetanus/diphtheria/pertussis, acel(Tdap) 09/18/15 Given Medications albuterol 90 mcg/inh inhalation powder 2 puffs, Inhalation, Every 4 hours, PRN as needed, with spacer chamber take 2-6 puffs every 4 hours for 1 day then as needed, # 1 each, 4 Refills, Maintenance, 11/03/21 13:43:00 EDT, Powder, [facility]/pharmacy #[id number], 2 puffs Inhalation Every 4 hours,PRN:as... Start Date: 11/03/21 Status: OrderedARIPiprazole 5 mg oral tablet 5 mg, 1, tablet, By Mouth, Daily, # 30 tablet, Refills 0, Tot. Refills 0, Maintenance, 11/03/21 13:43:00 EDT, Route to Pharmacy Electronically, [facility]/pharmacy #[id number], Partial fill upon patient request if the prescription is for a schedule II opioid drug.... Start Date: 11/03/21 Status: OrderedCompression Stockings See Instructions, # 2 each, Maintenance, surgical, calf length 20-30 mm Hg, 01/02/22 11:47:00 EDT, Supply, 182.88, cm, 12/31/21 9:11:00 EDT, Height, 104.4, kg, 12/24/21 19:20:00 EDT, Dry Weight Start Date: 01/02/22 Status: OrderedFLUoxetine 20 mg oral capsule 20 mg, 1, capsule, By Mouth, Daily, # 30 capsule, Refills 0, Maintenance, 01/01/22 13:01:00 EDT, Partial fill upon patient request if the prescription is for a schedule II opioid drug. Start Date: 01/01/22 Status: Orderedgabapentin 300 mg oral capsule 300 mg, 1, capsule, By Mouth, 3 times a day, # 90 capsule, Refills 0, Tot. Refills 0, Maintenance, 11/03/21 13:44:00 EDT, Route to Pharmacy Electronically, [facility]/pharmacy #[id number], Partial fill upon patientrequest if the prescription is for a schedule II... Start Date: 11/03/21 Status: Orderedlisinopril 20 mg oral tablet TAKE 1 TABLET (20 MG TOTAL) BY MOUTH ONE TIME EACH DAY Start Date: 01/29/22 Status: Orderedloperamide 2 mg oral capsule 2 mg, 1, capsule, By Mouth, Every 3 hours, PRN, # 20 capsule, Refills 0, Tot. Refills 0, Acute 05/04/22 12:00:00 EST, Loose Stool, 12/31/21 9:24:00 EDT, Route to Pharmacy Electronically, [facility]/pharmacy #[id number], Partial fill upon patient request if the pre... Start Date: 12/31/21 Stop Date: 05/04/22 Status: OrderedMelatonin 5 mg oral tablet 1 tablet = 5 mg, By Mouth, Daily at bedtime, PRN for insomnia, # 60 tablet, 0 Refills, Maintenance, 01/01/22 12:47:00 EDT, Tablet, Partial fill upon patient request if the prescription is for a schedule II opioid drug. Start Date: 01/01/22 Status: Orderedsertraline 100 mg oral tablet TOME GAYLA TABLETA POR V A ORAL EN LA MA FANY Start Date: 01/29/22 Status: OrderedtraZODone 50 mg oral tablet 50 mg, 1, tablet, By Mouth, Daily at bedtime, # 30 tablet, Refills 0, Tot. Refills 0, Maintenance, 12/31/21 9:24:00 EDT, Route to Pharmacy Electronically, [facility]/pharmacy #[id number], Partial fill upon patient request if the prescription is for a schedule II o... Start Date: 12/31/21 Status: OrderedVitamin B-12 100 mcg oral tablet 100 mcg, 1, tablet, By Mouth, Daily in AM, # 30 tablet, Refills 0, Tot. Refills 0, Maintenance, 12/31/21 9:24:00 EDT, Route to Pharmacy Electronically, [facility]/pharmacy #[id number], Partial fill upon patient request if the prescription is for a schedule II opio... Start Date: 12/31/21 Status: Orderedzolpidem 10 mg oral tablet 1 tablet = 10 mg, By Mouth, Daily at bedtime, PRN as needed for insomnia, 0 Refills, Maintenance, 01/01/22 12:47:00 EDT, Tablet, Partial fill upon patient request if the prescription is for a schedule II opioid drug. Start Date: 01/01/22 Status: Ordered Problem List Condition Confirmation Course Effective Dates Status Health Stat us Informant Anxiety Confirmed Active Asthma Confirmed Active Passage of loose Confirmed Active stools Dizziness Confirmed Active Postprandial Confirmed Active epigastric pain Housing situation Confirmed Active unstable Hypertension Confirmed Active Lower back pain Confirmed Active Moderate major Confirmed Active depression Obese class I Confirmed Active Prediabetes Confirmed Active Encounter for Confirmed Active screening colonoscopy Social History Social History Type Response Smoking Status Never (less than 100 in life time) entered on: 10/27/21 Sex Patient Care team information PersonnelName: Rob Rubin NP Address: Address: [address] [place] [address]
--- OUTSIDE RECORDS SUMMARY | 2022-05-19 20:14 | XMS_ITS | Continuity of Care Document ---
:1965 Author Organization [facility] Address [address] [place] [address]- Care Team Providers Name Role Phone Alexi Alicia NP Primary Care Physician [place] [facility] [place] [facility] [id number] Date(s): 09/16/20 - 10/16/[address] [address]- Attending Physician: Edin Choudhury Admitting Physician: Edin Choudhury Referring Physician: AdmtrEdin Allergies, Adverse Reactions, Alerts Substance Reaction Severity Status No known allergies Active Immunizations Given and Recorded Vaccine Date Status Refusal Reason tetanus/diphtheria/pertussis, acel(Tdap) 09/18/15 Given Medications albuterol 0.083% inhalation solution 3 mL = 2.5 mg, Inhalation, Every 6 hours, PRN for wheezing, # 25 each, 5 Refills, Maintenance, 09/13/20 13:36:00 EDT, Solution, [facility] #[id number], 180, cm, 09/13/20 12:28:00 EDT, Height, 95, kg, 09/09/20 0:07:00 EDT, Dry Weight Start Date: 09/13/20 Status: Orderedalbuterol 90 mcg/inh inhalation powder 2 puffs, Inhalation, Every 4 hours, PRN as needed, with spacer chamber take 2-6 puffs every 4 hours for 1 day then as needed, # 1 each, 4 Refills, Maintenance, 09/13/20 13:36:00 EDT, Powder, [facility] #[id number], 2 puffs Inhalation Every 4 merlene... Start Date: 09/13/20 Status: Orderedalbuterol-ipratropium 3 mg-0.5 mg/3 ml inhalation solution 3 mL, Neb, Once, albuterol Lot # [id number] Exp. 06/23/18 Ipratropium Lot # [id number] Exp. 09/21/19, 0 Refills, Maintenance, 03/15/18 15:30:00 EDT Start Date: 03/15/18 Stop Date: 05/23/18 Status: OrderedAmbien 10 mg oral tablet 1 tablet = 10 mg, By Mouth, Daily at bedtime, PRN for sleep, 0 Refills, Maintenance, 09/09/20 0:03:00 EDT, Tablet, Partial fill upon patient request if the prescription is for a schedule II opioid drug. Start Date: 09/09/20 Status: OrderedhydrOXYzine hydrochloride 25 mg oral tablet 1 capsule, By Mouth, Daily at bedtime, PRN for itching, for 30 days, # 30 capsule, 2 Refills, Acute 12/12/20 13:38:00 EDT, 09/13/20 13:38:00 EDT, Capsule, [facility] #[id number], Partial fill uponpatient request if the prescription is for a sche... Start Date: 09/13/20 Stop Date: 12/12/20 Status: Orderedibuprofen 600 mg oral tablet 600 mg, 1, tablet, By Mouth, Every 8 hours, PRN, # 30 tablet, Refills 0, Tot. Refills 0, Maintenance, as needed for pain, 02/22/18 9:48:31 EDT, Route to Pharmacy Electronically, [id number], [facility]/pharmacy #[id number] Start Date: 02/22/18 Stop Date: 03/04/18 Status: OrderedIpratropium 0.02% inhalation jose 500 mcg, Neb, 4 times a day, lot# [id number] exp august 2019, Refills 0, Maintenance, 03/25/18 17:17:52 EDT Start Date: 03/25/18 Status: Orderedlisinopril 10 mg oral tablet 10 mg, 1, tablet, By Mouth, Daily, # 30 tablet, Refills 11, Tot. Refills 11, Maintenance, 09/13/20 13:39:00 EDT, Route to Pharmacy Electronically, [facility] #[id number], 180, cm, 09/13/20 12:28:00 EDT, Height, 95, kg, 09/09/20 0:07:00 EDT, Dry W... Start Date: 09/13/20 Status: Orderednabumetone 500 mg oral tablet 1 tablet = 500 mg, By Mouth, 2 times a day, # 60 tablet, 0 Refills, Maintenance, 09/13/20 13:30:00 EDT, Tablet, [facility] #[id number], Partial fill upon patient request if the prescription is fora schedule II opioid drug., 180, cm, 09/13/20 12:... Start Date: 09/13/20 Stop Date: 10/13/20 Status: OrderedNebulizer/Compressor See Instructions, # 1 each, Maintenance, use with albuterol solution, 09/13/20 13:36:00 EDT, Compound, 180, cm, 09/13/20 12:28:00 EDT, Height, 95, kg, 09/09/20 0:07:00 EDT, Dry Weight Start Date: 09/13/20 Status: Ordered Problem List Condition Effective Dates Status Health Status Informant Anxiety(Confirmed) Active Asthma(Confirmed) Active Passage of loose stools(Confirmed) Active Postprandial epigastric Active pain(Confirmed) Hypertension(Confirmed) Active Lower back pain(Confirmed) Active Encounter for screening Active colonoscopy(Confirmed) Social History Social History Type Response Smoking Status Never smoker entered on: 09/09/15 Sex
--- OUTSIDE RECORDS SUMMARY | 2022-05-19 20:14 | XMS_ITS | Continuity of Care Document ---
:1965 Author Organization [facility] Address [address] [place] [address]- Care Team Providers Name Role Phone Rob Rubin NP Primary Care Physician [place] [facility] [place] 02/06[place] - 04/03/[address] [address]- Attending Physician: Not on Staff, Attending MD Allergies, Adverse Reactions, Alerts Substance Reaction Severity Status No known allergies Active Immunizations Given and Recorded Vaccine Date Status Refusal Reason tetanus/diphtheria/pertussis, acel(Tdap) 09/18/15 Given Medications albuterol 0.083% inhalation solution 3 mL = 2.5 mg, Inhalation, Every 6 hours, PRN for wheezing, # 25 each, 5 Refills, Maintenance, 09/13/20 13:36:00 EDT, Solution, [facility] #[id number], 180, cm, 09/13/20 12:28:00 EDT, Height, 95, kg, 09/09/20 0:07:00 EDT, Dry Weight Start Date: 09/13/20 Status: Orderedalbuterol 90 mcg/inh inhalation powder 2 puffs, Inhalation, Every 4 hours, PRN as needed, with spacer chamber take 2-6 puffs every 4 hours for 1 day then as needed, # 1 each, 4 Refills, Maintenance, 03/11/21 12:17:00 EDT, Powder, [facility] #[id number], 2 puffs Inhalation Every 4 merlene... Start Date: 03/11/21 Status: Orderedalbuterol-ipratropium 3 mg-0.5 mg/3 ml inhalation solution 3 mL, Neb, Once, albuterol Lot # [id number] Exp. 06/23/18 Ipratropium Lot # [id number] Exp. 09/21/19, 0 Refills, Maintenance, 03/15/18 15:30:00 [...] MOUTH TWICE DAILY Start Date: 03/16/21 Status: [facility] See Instructions, # 1 each, Refills 0, Tot. Refills 0, Maintenance, DX I10 Need 99+ months, 03/11/2112:18:00 EDT, Supply Start Date: 03/11/21 Status: Orderedibuprofen 800 mg oral tablet 1, tablet, By Mouth, Every 8 hours, # 30 tablet, Refills 0, Route to Pharmacy Electronically, [facility] #[id number], 180, cm, 09/13/20 12:28:00 EDT, Height, 95, kg, 09/09/20 0:07:00 EDT, Dry Weight Start Date: 01/29/21 Status: OrderedIpratropium 0.02% inhalation jose 500 mcg, Neb, 4 times a day, lot# [id number] August 2019, Refills 0, Maintenance, 03/25/18 17:17:52 EDT Start Date: 03/25/18 Status: Orderedlisinopril 10 mg oral tablet 1, tablet, By Mouth, Daily, # 90 tablet, Refills 1, Route to Pharmacy Electronically, [facility] #[id number], 180, cm, 03/11/21 11:20:00 EDT, Height, 95, kg, 09/09/20 0:07:00 EDT, Dry Weight Start Date: 03/11/21 Status: OrderedNebulizer/Compressor See Instructions, # 1 each, Maintenance, use with albuterol solution, 09/13/20 13:36:00 EDT, Compound, 180, cm, 09/13/20 12:28:00 EDT, Height, 95, kg, 09/09/20 0:07:00 EDT, Dry Weight Start Date: 09/13/20 Status: Orderedomeprazole 20 mg oral enteric coated capsule 1 capsule, By Mouth, Daily, # 90 capsule, 1 Refills, [facility] #[id number], 180, cm, 03/11/21 11:20:00 EDT, Height, 95, kg, 09/09/20 0:07:00 EDT, Dry Weight Start Date: 03/11/21 Status: Ordered Problem List Condition Effective Dates Status Health Status Informant Anxiety(Confirmed) Active Asthma(Confirmed) Active Passage of loose stools(Confirmed) Active Postprandial epigastric Active pain(Confirmed) Hypertension(Confirmed) Active Lower back pain(Confirmed) Active Moderate major depression(Confirmed) Active Prediabetes(Confirmed) Active Encounter for screening Active colonoscopy(Confirmed) Social History Social History Type Response Smoking Status Never smoker entered on: 09/09/15 Sex
--- OUTSIDE RECORDS SUMMARY | 2022-05-19 20:14 | XMS_ITS | Continuity of Care Document ---
:1965 Author Organization [facility] Address [address] [place] [address]- Care Team Providers Name Role Phone Scottie PACK, Rob Primary Care Physician Encounter [facility] [place] Date(s): 04/07/21 - 05/07/[address] [address]- Allergies, Adverse Reactions, Alerts Substance Reaction Severity Status No known allergies Active Immunizations Given and Recorded Vaccine Date Status Refusal Reason tetanus/diphtheria/pertussis, acel(Tdap) 09/18/15 Given Medications albuterol 0.083% inhalation solution 3 mL = 2.5 mg, Inhalation, Every 6 hours, PRN for wheezing, # 25 each, 5 Refills, Maintenance, 09/13/20 13:36:00 EDT, Solution, [facility] #[id number], 180, cm, 09/13/20 12:28:00 EDT, Height, 95, kg, 09/09/20 0:07:00 EDT, Dry Weight Start Date: 09/13/20 Status: Orderedalbuterol 90 mcg/inh inhalation powder 2 puffs, Inhalation, Every 4 hours, PRN as needed, with spacer chamber take 2-6 puffs every 4 hours for 1 day then as needed, # 1 each, 4 Refills, Maintenance, 03/11/21 12:17:00 EDT, Powder, [facility] #[id number], 2 puffs Inhalation Every 4 merlene... Start Date: 03/11/21 Status: Orderedalbuterol-ipratropium 3 mg-0.5 mg/3 ml inhalation solution 3 mL, Neb, Once, albuterol Lot # [id number] Exp. 06/23/18 Ipratropium Lot # [id number] Exp. 09/21/19, 0 Refills, Maintenance, 03/15/18 15:30:00 [...] MOUTH TWICE DAILY Start Date: 03/16/21 Status: [facility] See Instructions, # 1 each, Refills 0, Tot. Refills 0, Maintenance, DX I10 Need 99+ months, 03/11/2112:18:00 EDT, Supply Start Date: 03/11/21 Status: Orderedibuprofen 800 mg oral tablet 1, tablet, By Mouth, Every 8 hours, # 30 tablet, Refills 0, Route to Pharmacy Electronically, [facility] #[id number], 180, cm, 09/13/20 12:28:00 EDT, Height, 95, kg, 09/09/20 0:07:00 EDT, Dry Weight Start Date: 01/29/21 Status: OrderedIpratropium 0.02% inhalation jose 500 mcg, Neb, 4 times a day, lot# [id number] exp august 2019, Refills 0, Maintenance, 03/25/18 17:17:52 EDT Start Date: 03/25/18 Status: Orderedlisinopril 10 mg oral tablet 1, tablet, By Mouth, Daily, # 90 tablet, Refills 0, Route to Pharmacy Electronically, [facility] #[id number], 180, cm, 03/11/21 11:20:00 EDT, Height, 95, kg, 09/09/20 0:07:00 EDT, Dry Weight Start Date: 05/07/21 Status: OrderedNebulizer/Compressor See Instructions, # 1 each, Maintenance, use with albuterol solution, 09/13/20 13:36:00 EDT, Compound, 180, cm, 09/13/20 12:28:00 EDT, Height, 95, kg, 09/09/20 0:07:00 EDT, Dry Weight Start Date: 09/13/20 Status: Orderedomeprazole 20 mg oral enteric coated capsule 1 capsule, By Mouth, Daily, # 90 capsule, 0 Refills, [facility] #[id number], 180, cm, 03/11/21 11:20:00 EDT, Height, 95, kg, 09/09/20 0:07:00 EDT, Dry Weight Start Date: 05/07/21 Status: Ordered Problem List Condition Effective Dates Status Health Status Informant Anxiety(Confirmed) Active Asthma(Confirmed) Active Passage of loose stools(Confirmed) Active Postprandial epigastric Active pain(Confirmed) Hypertension(Confirmed) Active Lower back pain(Confirmed) Active Moderate major depression(Confirmed) Active Prediabetes(Confirmed) Active Encounter for screening Active colonoscopy(Confirmed) Social History Social History Type Response Smoking Status Never smoker entered on: 09/09/15 Sex
--- OUTSIDE RECORDS SUMMARY | 2022-05-19 20:14 | XMS_ITS | Continuity of Care Document ---
:1965 Author Organization [facility] Address [address] [place] [address]- Care Team Providers Name Role Phone Scottie PACK, Rob Primary Care Physician Encounter [facility] [place] Date(s): 05/13/21 - 06/12/[address] [address]- Allergies, Adverse Reactions, Alerts No Known Allergies Immunizations Given and Recorded Vaccine Date Status Refusal Reason tetanus/diphtheria/pertussis, acel(Tdap) 09/18/15 Given Medications albuterol 0.083% inhalation solution 3 mL = 2.5 mg, Inhalation, Every 6 hours, PRN for wheezing, # 25 each, 5 Refills, Maintenance, 09/13/20 13:36:00 EDT, Solution, [facility] #[id number], 180, cm, 09/13/20 12:28:00 EDT, Height, 95, kg, 09/09/20 0:07:00 EDT, Dry Weight Start Date: 09/13/20 Status: Orderedalbuterol 90 mcg/inh inhalation powder 2 puffs, Inhalation, Every 4 hours, PRN as needed, with spacer chamber take 2-6 puffs every 4 hours for 1 day then as needed, # 1 each, 4 Refills, Maintenance, 03/11/21 12:17:00 EDT, Powder, [facility] #[id number], 2 puffs Inhalation Every 4 merlene... Start Date: 03/11/21 Status: Orderedalbuterol-ipratropium 3 mg-0.5 mg/3 ml inhalation solution 3 mL, Neb, Once, albuterol Lot # [id number] Exp. 06/23/18 Ipratropium Lot # [id number] Exp. 09/21/19, 0 Refills, Maintenance, 03/15/18 15:30:00 [...] MOUTH TWICE DAILY Start Date: 03/16/21 [facility]: [facility] See Instructions, # 1 each, Refills 0, Tot. Refills 0, Maintenance, DX I10 Need 99+ months, 03/11/2112:18:00 EDT, Supply Start Date: 03/11/21 Status: Orderedibuprofen 800 mg oral tablet 1, tablet, By Mouth, Every 8 hours, # 30 tablet, Refills 0, Route to Pharmacy Electronically, [facility] #[id number], 180, cm, 09/13/20 12:28:00 EDT, Height, 95, kg, 09/09/20 0:07:00 EDT, Dry Weight Start Date: 01/29/21 Status: OrderedIpratropium 0.02% inhalation jose 500 mcg, Neb, 4 times a day, lot# [id number] exp august 2019, Refills 0, Maintenance, 03/25/18 17:17:52 EDT Start Date: 03/25/18 Status: Orderedlisinopril 10 mg oral tablet 1, tablet, By Mouth, Daily, # 90 tablet, Refills 0, Route to Pharmacy Electronically, [facility] #[id number], 180, cm, 03/11/21 11:20:00 EDT, Height, 95, [...] Mouth, Daily, # 90 capsule, 0 Refills, [facility] #[id number], 180, cm, 03/11/21 11:20:00 EDT, Height, 95, [...]
--- OUTSIDE RECORDS SUMMARY | 2022-05-19 20:14 | XMS_ITS | Continuity of Care Document ---
:1965 Author Organization [facility] Address [address] [place] [address]- Care Team Providers Name Role Phone Rob Rubin NP Primary Care Physician Encounter [facility] [place] Date(s): 10/07/21 - 12/06/[address] [address]- Attending Physician: Not on Staff, Attending MD Referring Physician: Rob Rubin NP Allergies, Adverse Reactions, Alerts No Known Allergies Immunizations Given and Recorded Vaccine Date Status Refusal Reason tetanus/diphtheria/pertussis, acel(Tdap) 09/18/15 Given Medications albuterol 90 mcg/inh inhalation powder 2 puffs, Inhalation, Every 4 hours, PRN as needed, with spacer chamber take 2-6 puffs every 4 hours for 1 day then as needed, # 1 each, 4 Refills, Maintenance, 11/03/21 13:43:00 EDT, Powder, [id number], 2 puffs Inhalation Every 4 hours,PRN:as... Start Date: 11/03/21 Status: Orderedalbuterol-ipratropium 3 mg-0.5 mg/3 ml inhalation solution 3 mL, [facility], Once, albuterol Lot # [id number] Exp. 06/23/18 Ipratropium Lot # [id number] Exp. 09/21/19, 0 Refills, Maintenance, 03/15/18 15:30:00 EDT Start Date: 03/15/18 Stop Date: 05/23/18 Status: OrderedARIPiprazole 5 mg oral tablet 5 mg, 1, tablet, By Mouth, Daily, # 30 tablet, Refills 0, Tot. Refills 0, Maintenance, 11/03/21 13:43:00 EDT, Route to Pharmacy Electronically, [id number], Partial fill upon patient request if the prescription is for a schedule II opioid drug.... Start Date: 11/03/21 Status: OrderedbuPROPion 300 mg/24 hours (XL) oral tablet, extended release 1 tablet = 300 mg, By Mouth, Daily, # 30 tablet, 0 Refills, Maintenance, 11/03/21 13:43:00 EDT, XL Tablet, [id number], Partial fill upon patient request if the prescription is for a schedule IIopioid drug., 175, cm, 11/03/21 11:35:00 EDT, Hei... Start Date: 11/03/21 Status: OrderedbusPIRone 10 mg oral tablet 10 mg, 1, tablet, By Mouth, 2 times a day, # 60 tablet, Refills 0, Tot. Refills 0, Maintenance, 11/03/21 13:43:00 EDT, Route to Pharmacy Electronically, [id number], Partial fill upon patient request if the prescription is for a schedule II opi... Start Date: 11/03/21 Status: Orderedcyclobenzaprine 10 mg oral tablet 10 mg, 1, tablet, By Mouth, 3 times a day, # 21 tablet, Refills 1, Tot. Refills 1, Maintenance, 11/03/21 13:43:00 EDT, Route to Pharmacy Electronically, [id number], Partial fill upon patient request if the prescription is for a schedule II opi... Start Date: 11/03/21 Stop Date: 11/17/21 Status: Orderedgabapentin 300 mg oral capsule 300 mg, 1, capsule, By Mouth, 3 times a day, # 90 capsule, Refills 0, Tot. Refills 0, Maintenance, 11/03/21 13:44:00 EDT, Route to Pharmacy Electronically, [id number], Partial fill upon patientrequest if the prescription is for a schedule II... Start Date: 11/03/21 Status: OrderedHome Blood Pressure Monitor See Instructions, # 1 each, Maintenance, Need for home BP monitor ICD 10: I10 HTN Please send to [facility] Thank you!, 10/07/21 12:54:00 EDT, Supply Start Date: 10/07/21 Status: OrderedHome Blood Pressure Monitor See Instructions, # 1 each, Refills 0, Tot. Refills 0, Maintenance, DX I10 Need 99+ months please send to [facility] Thank you, 10/07/21 12:55:00 EDT, Supply Start Date: 10/07/21 Status: Orderedhydrochlorothiazide 25 mg oral tablet 12.5 mg, 0.5, tablet, By Mouth, Daily, # 15 tablet, Refills 0, Tot. Refills 0, Maintenance, 11/03/2212:44:00 EDT, Route to Pharmacy Electronically, [facility]/pharmacy #[id number], Partial fill upon patient request if the prescription is for a schedule II opioid... Start Date: 11/03/21 Status: OrderedIpratropium 0.02% inhalation jose 500 mcg, Neb, 4 times a day, lot# [id number] exp august 2019, Refills 0, Maintenance, 03/25/18 17:17:52 EDT Start Date: 03/25/18 Status: Orderedlisinopril 20 mg oral tablet 20 mg, 1, tablet, By Mouth, Daily, # 30 tablet, Refills 0, Tot. Refills 0, Maintenance, 11/03/21 13:44:00 EDT, Route to Pharmacy Electronically, [facility]/pharmacy #[id number], Partial fill upon patient request ifthe prescription is for a schedule II opioid drug... Start Date: 11/03/21 Status: Orderedmultivitamin with minerals Antioxidant Multiple Vitamins and Minerals oral capsule 1 tablet, By Mouth, Daily, # 30 tablet, 0 Refills, Maintenance, 11/03/21 13:44:00 EDT, Capsule, [facility]/pharmacy #[id number], Partial fill upon patient request if the prescription is for a schedule II opioid drug., 1 tablet By Mouth Daily, 175, cm, 11/03/21 11:... Start Date: 11/03/21 Status: OrderedNebulizer/Compressor See Instructions, # 1 each, Maintenance, use with albuterol solution, 09/13/20 13:36:00 EDT, Compound, 180, cm, 09/13/20 12:28:00 EDT, Height, 95, kg, 09/09/20 0:07:00 EDT, Dry Weight Start Date: 09/13/20 Status: Orderedpantoprazole 40 mg oral delayed release tablet 1 tablet = 40 mg, By Mouth, Daily, # 30 tablet, 0 Refills, Maintenance, 11/03/21 13:44:00 EDT, EC Tablet, 175, cm, 11/03/21 11:35:00 EDT, Height, 97.7, kg, 10/27/21 13:46:00 EDT, Dry Weight Start Date: 11/03/21 Status: OrderedtraZODone 50 mg oral tablet 50 mg, 1, tablet, By Mouth, Daily at bedtime, # 30 tablet, Refills 0, Tot. Refills 0, Maintenance, 11/03/21 13:46:00 EDT, Route to Pharmacy Electronically, [facility]/pharmacy #[id number], Partial fill upon patientrequest if the prescription is for a schedule II... Start Date: 11/03/21 Status: Ordered Problem List Condition Effective Dates Status Health Status Informant Anxiety(Confirmed) Active Asthma(Confirmed) Active Passage of loose stools(Confirmed) Active Postprandial epigastric Active pain(Confirmed) Hypertension(Confirmed) Active Lower back pain(Confirmed) Active Moderate major depression(Confirmed) Active Obese class I(Confirmed) Active Prediabetes(Confirmed) Active Encounter for screening Active colonoscopy(Confirmed) Social History Social History Type Response Smoking Status Never (less than 100 in life time) entered on: 10/27/21 Sex
--- OUTSIDE RECORDS SUMMARY | 2022-05-19 20:14 | XMS_ITS | Continuity of Care Document ---
:1965 Author Organization [facility] Address [address] [place] [address]- Care Team Providers Name Role Phone Scottie PACK, Rob Primary Care Physician Encounter [facility] [place] Date(s): 03/17/21 - 04/16/[address] [address]- Allergies, Adverse Reactions, Alerts Substance Reaction Severity Status No known allergies Active Immunizations Given and Recorded Vaccine Date Status Refusal Reason tetanus/diphtheria/pertussis, acel(Tdap) 09/18/15 Given Medications albuterol 0.083% inhalation solution 3 mL = 2.5 mg, Inhalation, Every 6 hours, PRN for wheezing, # 25 each, 5 Refills, Maintenance, 09/13/20 13:36:00 EDT, Solution, [facility] #[id number], 180, cm, 09/13/20 12:28:00 EDT, Height, 95, kg, 09/09/20 0:07:00 EDT, Dry Weight Start Date: 09/13/20 Status: Orderedalbuterol 90 mcg/inh inhalation powder 2 puffs, Inhalation, Every 4 hours, PRN as needed, with spacer chamber take 2-6 puffs every 4 hours for 1 day then as needed, # 1 each, 4 Refills, Maintenance, 03/11/21 12:17:00 EDT, Powder, [facility] #[id number], 2 puffs Inhalation Every 4 merlene... Start Date: 03/11/21 Status: Orderedalbuterol-ipratropium 3 mg-0.5 mg/3 ml inhalation solution 3 mL, Neb, Once, albuterol Lot # [id number] Exp. 06/23/18 Ipratropium Lot # [id number] Exp. 09/21/19, 0 Refills, Maintenance, 03/15/18 15:30:00 [...] MOUTH TWICE DAILY Start Date: 03/16/21 Status: [facility] See Instructions, # 1 each, Refills 0, Tot. Refills 0, Maintenance, DX I10 Need 99+ months, 03/11/2112:18:00 EDT, Supply Start Date: 03/11/21 Status: Orderedibuprofen 800 mg oral tablet 1, tablet, By Mouth, Every 8 hours, # 30 tablet, Refills 0, Route to Pharmacy Electronically, [facility] #[id number], 180, cm, 09/13/20 12:28:00 EDT, Height, 95, kg, 09/09/20 0:07:00 EDT, Dry Weight Start Date: 01/29/21 Status: OrderedIpratropium 0.02% inhalation jose 500 mcg, Neb, 4 times a day, lot# [id number] August 2019, Refills 0, Maintenance, 03/25/18 17:17:52 EDT Start Date: 03/25/18 Status: Orderedlisinopril 10 mg oral tablet 1, tablet, By Mouth, Daily, # 90 tablet, Refills 1, Route to Pharmacy Electronically, [facility] #[id number], 180, cm, 03/11/21 11:20:00 EDT, Height, 95, [...] Mouth, Daily, # 90 capsule, 1 Refills, [facility] #[id number], 180, cm, 03/11/21 11:20:00 EDT, Height, 95, [...]
--- OUTSIDE RECORDS SUMMARY | 2022-05-19 20:14 | XMS_ITS | Continuity of Care Document ---
:1965 Author Organization [facility] Address [address] [place] [address]- Care Team Providers Name Role Phone Alexi Alicia NP Primary Care Physician Encounter [facility] [place] Date(s): 11/15/20 - 12/15/[address] [address]- Attending Physician: Admbalta, Edin Admitting Physician: AdmtrEdin Referring Physician: Admtr, Ar8 Allergies, Adverse Reactions, Alerts Substance Reaction Severity Status No known allergies Active Immunizations Given and Recorded Vaccine Date Status Refusal Reason tetanus/diphtheria/pertussis, acel(Tdap) 09/18/15 Given Medications albuterol 0.083% inhalation solution 3 mL = 2.5 mg, Inhalation, Every 6 hours, PRN for wheezing, # 25 each, 5 Refills, Maintenance, 09/13/20 13:36:00 EDT, Solution, [facility] #[id number], 180, cm, 09/13/20 12:28:00 EDT, Height, 95, kg, 09/09/20 0:07:00 EDT, Dry Weight Start Date: 09/13/20 Status: Orderedalbuterol 90 mcg/inh inhalation powder 2 puffs, Inhalation, Every 4 hours, PRN as needed, with spacer chamber take 2-6 puffs every 4 hours for 1 day then as needed, # 1 each, 4 Refills, Maintenance, 09/13/20 13:36:00 EDT, Powder, [facility] #[id number], 2 puffs Inhalation Every 4 merlene... Start Date: 09/13/20 Status: Orderedalbuterol-ipratropium 3 mg-0.5 mg/3 ml inhalation solution 3 mL, Neb, Once, albuterol Lot # [id number] Exp. 06/23/18 Ipratropium Lot # [id number] Exp. 09/21/19, 0 Refills, Maintenance, 03/15/18 15:30:00 EDT Start Date: 03/15/18 Stop Date: 05/23/18 Status: OrderedAmbien 10 mg oral tablet 1 tablet = 10 mg, By Mouth, Daily at bedtime, PRN for sleep, 0 Refills, Maintenance, 09/09/20 0:03:00 EDT, Tablet, Partial fill upon patient request if the prescription is for a schedule II opioid drug. Start Date: 09/09/20 Status: Orderedibuprofen 600 mg oral tablet 600 mg, 1, tablet, By Mouth, Every 8 hours, PRN, # 30 tablet, Refills 0, Tot. Refills 0, Maintenance, as needed for pain, 02/22/18 9:48:31 EDT, Route to Pharmacy Electronically, [id number], [facility]/pharmacy #[id number] Start Date: 02/22/18 Stop Date: 03/04/18 Status: OrderedIpratropium 0.02% inhalation jose 500 mcg, [facility], 4 times a day, lot# [id number] exp august 2019, Refills 0, Maintenance, 03/25/18 17:17:52 EDT Start Date: 03/25/18 Status: Orderedlisinopril 10 mg oral tablet 10 mg, 1, tablet, By Mouth, Daily, # 30 tablet, Refills 11, Tot. Refills 11, Maintenance, 09/13/20 13:39:00 EDT, Route to Pharmacy Electronically, [facility] #[id number], 180, cm, 09/13/20 12:28:00 EDT, Height, 95, kg, 09/09/20 0:07:00 EDT, Dry W... Start Date: 09/13/20 Status: Orderednabumetone 500 mg oral tablet 1 tablet = 500 mg, By Mouth, 2 times a day, # 60 tablet, 0 Refills, Maintenance, 09/13/20 13:30:00 EDT, Tablet, [facility] #[id number], Partial fill upon patient request if the [...]
--- OUTSIDE RECORDS SUMMARY | 2022-05-19 20:14 | XMS_ITS | Continuity of Care Document ---
:1965 Author Organization [facility] Address [address] [place] [address]- Care Team Providers Name Role Phone Scottie PACK, Rob Primary Care Physician Encounter [facility] Date(s): 06/20/21 - 07/20/[address] [address]- Allergies, Adverse Reactions, Alerts No Known Allergies Immunizations Given and Recorded Vaccine Date Status Refusal Reason tetanus/diphtheria/pertussis, acel(Tdap) 09/18/15 Given Medications albuterol 0.083% inhalation solution 3 mL = 2.5 mg, Inhalation, Every 6 hours, PRN for wheezing, # 25 each, 5 Refills, Maintenance, 09/13/20 13:36:00 EDT, Solution, [facility] #[id number], 180, cm, 09/13/20 12:28:00 EDT, Height, 95, kg, 09/09/20 0:07:00 EDT, Dry Weight Start Date: 09/13/20 Status: Orderedalbuterol 90 mcg/inh inhalation powder 2 puffs, Inhalation, Every 4 hours, PRN as needed, with spacer chamber take 2-6 puffs every 4 hours for 1 day then as needed, # 1 each, 4 Refills, Maintenance, 03/11/21 12:17:00 EDT, Powder, [facility] #[id number], 2 puffs Inhalation Every 4 merlene... Start Date: 03/11/21 Status: Orderedalbuterol-ipratropium 3 mg-0.5 mg/3 ml inhalation solution 3 mL, Neb, Once, albuterol Lot # [id number] Exp. 06/23/18 Ipratropium Lot # [id number] Exp. 09/21/19, 0 Refills, Maintenance, 03/15/18 15:30:00 [...] MOUTH TWICE DAILY Start Date: 03/16/21 Status: [facility] Blood Pressure Monitor See Instructions, # 1 each, Refills 0, Tot. Refills 0, Maintenance, DX I10 Need 99+ months, 03/11/2112:18:00 EDT, Supply Start Date: 03/11/21 Status: Orderedibuprofen 800 mg oral tablet 1, tablet, By Mouth, Every 8 hours, # 30 tablet, Refills 0, Route to Pharmacy Electronically, [facility] #[id number], 180, cm, 09/13/20 12:28:00 EDT, Height, 95, kg, 09/09/20 0:07:00 EDT, Dry Weight Start Date: 01/29/21 Status: OrderedIpratropium 0.02% inhalation jose 500 mcg, Neb, 4 times a day, lot# [id number] exp august 2019, Refills 0, Maintenance, 03/25/18 17:17:52 EDT Start Date: 03/25/18 Status: Orderedlisinopril 10 mg oral tablet 1, tablet, By Mouth, Daily, # 90 tablet, Refills 1, Tot. Refills 1, 06/17/21 16:01:00 EST, Route to Pharmacy Electronically, [facility] #[id number], 180, cm, 03/11/21 11:20:00 EDT, Height, 95, kg,09/09/20 0:07:00 EDT, Dry Weight Start Date: 06/17/21 Status: OrderedNebulizer/Compressor See Instructions, # 1 each, Maintenance, use with albuterol solution, 09/13/20 13:36:00 EDT, Compound, 180, cm, 09/13/20 12:28:00 EDT, Height, 95, kg, 09/09/20 0:07:00 EDT, Dry Weight Start Date: 09/13/20 Status: Orderedomeprazole 20 mg oral enteric coated capsule 1 capsule, By Mouth, Daily, # 90 capsule, 0 Refills, [facility] #[id number], 180, cm, 03/11/21 11:20:00 EDT, Height, 95, [...]
--- OUTSIDE RECORDS SUMMARY | 2022-05-19 20:14 | XMS_ITS | Continuity of Care Document ---
:[address] [facility] Address [address] [place] [address]- Care Team Providers Name Role Phone Scottie PACK, Rob Primary Care Physician Encounter [facility] [place] [facility] R [id number] Date(s): 01/23/22 - 02/22/[address] [address]- Attending Physician: Macey, Edin Admitting Physician: AdmtrEdin Referring Physician: Admtr, [...] 4 Refills, Maintenance, 11/03/21 13:43:00 EDT, Powder, [facility]/pharmacy #[id number], 2 puffs Inhalation Every 4 hours,PRN:as... Start Date: 11/03/21 Status: OrderedARIPiprazole 5 mg oral tablet 5 mg, 1, tablet, By Mouth, Daily, # 30 tablet, Refills 0, Tot. Refills 0, Maintenance, 11/03/21 13:43:00 EDT, Route to Pharmacy Electronically, [facility]/pharmacy #[id number], Partial fill upon patient request if [...] 13:44:00 EDT, Route to Pharmacy Electronically, [facility]/pharmacy #[id number], Partial fill upon patientrequest if the [...] 12/31/21 9:24:00 EDT, Route to Pharmacy Electronically, [facility]/pharmacy #[id number], Partial fill upon patient request if [...] 12/31/21 9:24:00 EDT, Route to Pharmacy Electronically, [facility]/pharmacy #[id number], Partial fill upon patient request if the prescription is for a schedule II o... Start Date: 12/31/21 Status: OrderedVitamin B-12 100 mcg oral tablet 100 mcg, 1, tablet, By Mouth, Daily in AM, # 30 tablet, Refills 0, Tot. Refills 0, Maintenance, 12/31/21 9:24:00 EDT, Route to Pharmacy Electronically, [facility]/pharmacy #[id number], Partial fill upon patient request if [...] Confirmation Course Effective Dates Status Health Stat Informant Anxiety Confirmed Active Asthma Confirmed Active [...] information PersonnelName: Rob Rubin NP Address: Address: [address] [place] [address]
--- OUTSIDE RECORDS SUMMARY | 2022-05-19 20:14 | XMS_ITS | Continuity of Care Document ---
:1965 Author Organization [facility] Address [address] [place] [address]- Care Team Providers Name Role Phone Scottie PACK, Rob [id number] - 03/01/[address] [address] Attending Physician: Layla Nowak NP, Wendy Admitting Physician: Layla Nowak NP, Wendy Referring Physician: Layla Nowak NP, Wendy Allergies, Adverse Reactions, Alerts No Known Allergies Immunizations Given and Recorded Vaccine Date Status Refusal Reason tetanus/diphtheria/pertussis, acel(Tdap) 09/18/15 Given Medications albuterol 90 mcg/inh inhalation powder 2 puffs, Inhalation, Every 4 hours, PRN as needed, with spacer chamber take 2-6 puffs every 4 hours for 1 day then as needed, # 1 each, 4 Refills, Maintenance, 11/03/21 13:43:00 EDT, Powder, [facility]/pharmacy #[id number], 2 puffs Inhalation Every 4 hours,PRN:as... Start Date: 11/03/21 Status: OrderedARIPiprazole 5 mg oral tablet 5 mg, 1, tablet, By Mouth, Daily, # 30 tablet, Refills 0, Tot. Refills 0, Maintenance, 11/03/21 13:43:00 EDT, Route to Pharmacy Electronically, [facility]/pharmacy #[id number], Partial fill upon patient request if [...] 13:44:00 EDT, Route to Pharmacy Electronically, [facility]/pharmacy #[id number], Partial fill upon patientrequest if the [...] 9:24:00 EDT, Route to Pharmacy Electronically, [facility]/pharmacy #[id number], Partial fill upon patient request if [...] 9:24:00 EDT, Route to Pharmacy Electronically, [facility]/pharmacy #[id number], Partial fill upon patient request if the prescription is for a schedule II o... Start Date: 12/31/21 Status: OrderedVitamin B-12 100 mcg oral tablet 100 mcg, 1, tablet, By Mouth, Daily in AM, # 30 tablet, Refills 0, Tot. Refills 0, Maintenance, 12/31/21 9:24:00 EDT, Route to Pharmacy Electronically, [facility]/pharmacy #[id number], Partial fill upon patient request if [...] information PersonnelName: Rob Rubin NP Address: Address: [address] [place] [address]
--- OUTSIDE RECORDS SUMMARY | 2022-05-19 20:14 | XMS_ITS | Continuity of Care Document ---
:1965 Author Organization [facility] Address [address] [place] [address]- Care Team Providers Name Role Phone Scottie PACK, Rob Primary Care Physician Encounter [facility] [place] Date(s): 04/12/21 - 04/13/[address] [address]- Encounter Diagnosis Fatigue (Final) - 04/13/21 Discharge Disposition: A-D/C Home Attending Physician: Sami Grigsby DO Admitting Physician: Sami Grigsby DO Referring Physician: Not on Staff, Referring MD Allergies, Adverse Reactions, Alerts Substance Reaction Severity Status No known allergies Active Immunizations Given and Recorded Vaccine Date Status Refusal Reason tetanus/diphtheria/pertussis, acel(Tdap) 09/18/15 Given Medications albuterol 0.083% inhalation solution 3 mL = 2.5 mg, Inhalation, Every 6 hours, PRN for wheezing, # 25 each, 5 Refills, Maintenance, 09/13/20 13:36:00 EDT, Solution, [facility] #[id number], 180, cm, 09/13/20 12:28:00 EDT, Height, 95, kg, 09/09/20 0:07:00 EDT, Dry Weight Start Date: 09/13/20 Status: Orderedalbuterol 90 mcg/inh inhalation powder 2 puffs, Inhalation, Every 4 hours, PRN as needed, with spacer chamber take 2-6 puffs every 4 hours for 1 day then as needed, # 1 each, 4 Refills, Maintenance, 03/11/21 12:17:00 EDT, Powder, [facility] #[id number], 2 puffs Inhalation Every 4 merlene... Start Date: 03/11/21 Status: Orderedalbuterol-ipratropium 3 mg-0.5 mg/3 ml inhalation solution 3 mL, Neb, Once, albuterol Lot # [id number] Exp. 06/23/18 Ipratropium Lot # [id number] Exp. 09/21/19, 0 Refills, Maintenance, 03/15/18 15:30:00 [...] MOUTH TWICE DAILY Start Date: 03/16/21 Status: OrderedHome Blood Pressure Monitor See Instructions, # 1 each, Refills 0, Tot. Refills 0, Maintenance, DX I10 Need 99+ months, 03/11/2112:18:00 EDT, Supply Start Date: 03/11/21 Status: Orderedibuprofen 800 mg oral tablet 1, tablet, By Mouth, Every 8 hours, # 30 tablet, Refills 0, Route to Pharmacy Electronically, [facility] #[id number], 180, cm, 09/13/20 12:28:00 EDT, Height, 95, kg, 09/09/20 0:07:00 EDT, Dry Weight Start Date: 01/29/21 Status: OrderedIpratropium 0.02% inhalation jose 500 mcg, Neb, 4 times a day, lot# [id number] exp august 2019, Refills 0, Maintenance, 03/25/18 17:17:52 EDT Start Date: 03/25/18 Status: Orderedlisinopril 10 mg oral tablet 1, tablet, By Mouth, Daily, # 90 tablet, Refills 1, Route to Pharmacy Electronically, [facility] #[id number], 180, cm, 03/11/21 11:20:00 EDT, Height, 95, [...] Mouth, Daily, # 90 capsule, 1 Refills, [facility] #[id number], 180, cm, 03/11/21 11:20:00 EDT, Height, 95, kg, 09/09/20 0:07:00 EDT, Dry Weight Start Date: 04/07/21 Status: Ordered Problem List Condition Effective Dates Status Health Status Informant Anxiety(Confirmed) Active Asthma(Confirmed) Active Passage of loose stools(Confirmed) Active Postprandial epigastric Active pain(Confirmed) Hypertension(Confirmed) Active Lower back pain(Confirmed) Active Moderate major depression(Confirmed) Active Prediabetes(Confirmed) Active Encounter for screening Active colonoscopy(Confirmed) Vital Signs Most recent to oldest 1 2 3 [Reference Range]: Oxygen Saturation [94-100 96 % 98 % 98 % %] (04/13/21 1:55 PM) (04/13/21 12:05 PM) (04/13/21 9:43 AM) Pulse Rate [55-90 bpm] 87 bpm 92 bpm 78 bpm (04/13/21 1:55 PM) *H* (04/13/21 9:4 3 AM) (04/13/21 12:05 PM) Blood Pressure 147/91 mm Hg 153/76 mm Hg 142/76 mm Hg [90-138/55-84 mm Hg] *H* *H* *H* (04/13/21 1:55 PM) (04/13/21 12:05 PM) (04/13/21 9:43 AM) Respiratory Rate [16-30 16 br/min 20 br/min 18 br/mi n br/min] (04/13/21 1:55 PM) (04/13/21 12:05 PM) (04/13/21 9:43 AM) Temperature [96.8-100.4 98.7 DegF 99.1 DegF 98.2 Deg F DegF] (04/13/21 1:55 PM) (04/13/21 12:05 PM) (04/13/21 7:41 AM) Liters per Minute 0 L/min (04/13/21 12:05 PM) Mode of Delivery (Oxygen) Room air Room air Room a ir (04/13/21 1:55 PM) (04/13/21 12:05 PM) (04/13/21 9:43 AM) Blood pressure sites Arm, left Arm, left Arm, left (04/13/21 1:55 PM) (04/13/21 12:05 PM) (04/13/21 7:41 AM) Temperature Route Oral Oral Oral (04/13/21 1:55 PM) (04/13/21 12:05 PM) (04/13/21 7:41 AM) Social History Social History Type Response Smoking Status Never smoker entered on: 09/09/15 Sex
--- OUTSIDE RECORDS SUMMARY | 2022-05-19 20:14 | XMS_ITS | Continuity of Care Document ---
:1965 Author Organization [facility] Address [address] [place] [address]- Care Team Providers Name Role Phone Scottie PACK, Rob Primary Care Physician [place] [facility] [place] Date(s): 12/23/21 - 01/22/[address] [address]- Allergies, Adverse Reactions, Alerts No Known Allergies Immunizations Given and Recorded Vaccine Date Status Refusal Reason tetanus/diphtheria/pertussis, acel(Tdap) 09/18/15 Given Medications albuterol 90 mcg/inh inhalation powder 2 puffs, Inhalation, Every 4 hours, PRN as needed, with spacer chamber take 2-6 puffs every 4 hours for 1 day then as needed, # 1 each, 4 Refills, Maintenance, 11/03/21 13:43:00 EDT, Powder, [facility]/pharmacy #[id number], 2 puffs Inhalation Every 4 hours,PRN:as... [...] 11/03/21 13:44:00 EDT, Route to Pharmacy Electronically, [facility]/pharmacy #[id number], Partial fill upon patientrequest if the prescription is for a schedule II... Start Date: 11/03/21 Status: Orderedhydrochlorothiazide-lisinopril 12.5 mg-20 mg oral tablet 1 tablet, By Mouth, Daily, # 30 tablet, 0 Refills, Maintenance, 01/01/22 12:52:00 EDT, Tablet, Partial fill upon patient request if the prescription is for a schedule II opioid drug. Start Date: 01/01/22 Status: Orderedloperamide 2 mg oral capsule 2 mg, 1, capsule, By Mouth, Every 3 hours, PRN, # 20 capsule, Refills 0, Tot. Refills 0, Acute 05/04/22 12:00:00 EST, Loose Stool, 12/31/21 9:24:00 EDT, Route to Pharmacy Electronically, [facility]/pharmacy #[id number], Partial fill upon patient request if the pre... Start Date: 12/31/21 Stop Date: 05/04/22 Status: OrderedMelatonin 5 mg oral tablet 1 tablet = 5 mg, By Mouth, Daily at bedtime, PRN for insomnia, # 60 tablet, 0 Refills, Maintenance, 01/01/22 12:47:00 EDT, Tablet, Partial fill upon patient request if the prescription is for a schedule II opioid drug. Start Date: 01/01/22 Status: OrderedtraZODone 50 mg oral tablet 50 mg, 1, tablet, By Mouth, Daily at bedtime, # 30 tablet, Refills 0, Tot. Refills 0, Maintenance, 12/31/21 9:24:00 EDT, Route to Pharmacy Electronically, [facility]/pharmacy #[id number], Partial fill upon patient request if the prescription is for a schedule II o... Start Date: 12/31/21 Status: OrderedVitamin B-12 100 mcg oral tablet 100 mcg, 1, tablet, By Mouth, Daily in AM, # 30 tablet, Refills 0, Tot. Refills 0, Maintenance, 12/31/21 9:24:00 EDT, Route to Pharmacy Electronically, [facility]/pharmacy #[id number], Partial fill upon patient request if the prescription is for a schedule II opio... Start Date: 12/31/21 Status: OrderedZoloft 50 mg oral tablet 2 tablet = 100 mg, By Mouth, Daily, # 60 tablet, 0 Refills, Maintenance, 12/31/21 9:24:00 EDT, Tablet, [facility]/pharmacy #[id number], Partial fill upon patient request if the prescription is for a schedule II opioid drug., 182.88, cm, 12/31/21 9:11:00 EDT, Heigh... Start Date: 12/31/21 Status: Orderedzolpidem 10 mg oral tablet 1 tablet = 10 mg, By Mouth, Daily at bedtime, PRN as needed for insomnia, 0 Refills, Maintenance, 01/01/22 12:47:00 EDT, Tablet, Partial fill upon patient request if the prescription is for a schedule II opioid drug. Start Date: 01/01/22 Status: Ordered Problem List Condition Effective Dates Status Health Status Informant Anxiety(Confirmed) Active Asthma(Confirmed) Active Passage of loose stools(Confirmed) Active Dizziness(Confirmed) Active Postprandial epigastric Active pain(Confirmed) Housing situation unstable(Confirmed) Active Hypertension(Confirmed) Active Lower back pain(Confirmed) Active Moderate major depression(Confirmed) Active Obese class I(Confirmed) Active Prediabetes(Confirmed) Active Encounter for screening Active colonoscopy(Confirmed) Social History Social History Type Response Smoking Status Never (less than 100 in life time) entered on: 10/27/21 Sex Care Team PersonnelName: Rob Rubin NP Address: [address] [place] [address]
--- OUTSIDE RECORDS SUMMARY | 2022-05-19 20:14 | XMS_ITS | Continuity of Care Document ---
:1965 Author Organization [facility] Address [address] [place] [address]- Care Team Providers Name Role Phone Alexi Alicia NP Primary Care Physician [place] [facility] [id number] Date(s): 02/08/20 - 03/09/[address] [address]- [facility] Attending Physician: Edin Choudhury Admitting Physician: AdmtrEdin Referring Physician: Admtr, Ar8 Allergies, Adverse Reactions, Alerts Substance Reaction Severity Status No known allergies Active Immunizations Given and Recorded Vaccine Date Status Refusal Reason tetanus/diphtheria/pertussis, acel(Tdap) 09/18/15 Given Medications albuterol 0.083% inhalation solution 3 mL = 2.5 mg, Inhalation, Every 6 hours, PRN for wheezing, # 25 each, 5 Refills, Maintenance, 02/08/20 10:51:00 EDT, Solution, [id number], 180.3, cm, 02/08/20 10:05:00 EDT, Height, 97.2, kg, 10/06/18 14:40:00 EDT, Dry Weight Start Date: 02/08/20 Status: Orderedalbuterol 90 mcg/inh inhalation powder 2 puffs, Inhalation, Every 4 hours, PRN as needed, with spacer chamber take 2-6 puffs every 4 hours for 1 day then as needed, # 1 each, 4 Refills, Maintenance, 02/08/20 10:51:00 EDT, Powder, [id number], 2 puffs Inhalation Every 4 hours,PRN:as... Start Date: 02/08/20 Status: Orderedalbuterol-ipratropium 3 mg-0.5 mg/3 ml inhalation solution 3 mL, Neb, Once, albuterol Lot # [id number] Exp. 06/23/18 Ipratropium Lot # [id number] Exp. 09/21/19, 0 Refills, Maintenance, 03/15/18 15:30:00 EDT Start Date: 03/15/18 Stop Date: 05/23/18 Status: Orderedibuprofen 600 mg oral tablet 600 mg, 1, tablet, By Mouth, Every 8 hours, PRN, # 30 tablet, Refills 0, Tot. Refills 0, Maintenance, as needed for pain, 02/22/18 9:48:31 EDT, Route to Pharmacy Electronically, [id number], [facility]/pharmacy #[id number] Start Date: 02/22/18 Stop Date: 03/04/18 Status: OrderedIpratropium 0.02% inhalation jose 500 mcg, [facility], 4 times a day, lot# [id number] exp august 2019, Refills 0, Maintenance, 03/25/18 17:17:52 EDT Start Date: 03/25/18 Status: Orderedlisinopril 10 mg oral tablet 10 mg, 1, tablet, By Mouth, Daily, # 30 tablet, Refills 2, Tot. Refills 2, Maintenance, 02/08/20 10:51:00 EDT, Route to Pharmacy Electronically, [facility]/pharmacy #[id number], 180.3, cm, 02/08/20 10:05:00 EDT, Height, 97.2, kg, 10/06/18 14:40:00 EDT, Dry Weight Start Date: 02/08/20 Status: OrderedNebulizer/Compressor See Instructions, # 1 each, Maintenance, use with albuterol solution, 03/25/18 14:31:47 EDT, Compound Start Date: 03/25/18 Status: Ordered Problem List Condition Effective Dates Status Health Status Informant Anxiety(Confirmed) Active Asthma(Confirmed) Active Passage of loose stools(Confirmed) Active Postprandial epigastric Active pain(Confirmed) Hypertension(Confirmed) Active Lower back pain(Confirmed) Active Encounter for screening Active colonoscopy(Confirmed) Social History Social History Type Response Smoking Status Never smoker entered on: 09/09/15 Sex
--- OUTSIDE RECORDS SUMMARY | 2022-05-19 20:14 | XMS_ITS | Continuity of Care Document ---
:1965 Author Organization [facility] Address [address] [place] [address]- Care Team Providers Name Role Phone Scottie PACK, Rob Primary Care Physician Encounter [facility] [place] Date(s): 04/10/21 - 05/11/[address] [address]- Attending Physician: Not on Staff, Attending MD Allergies, Adverse Reactions, Alerts Substance Reaction Severity Status No known allergies Active Immunizations Given and Recorded Vaccine Date Status Refusal Reason tetanus/diphtheria/pertussis, acel(Tdap) 09/18/15 Given Medications albuterol 0.083% inhalation solution 3 mL = 2.5 mg, Inhalation, Every 6 hours, PRN for wheezing, # 25 each, 5 Refills, Maintenance, 09/13/20 13:36:00 EDT, Solution, [facility] #[id number], 180, cm, 09/13/20 12:28:00 EDT, Height, 95, kg, 09/09/20 0:07:00 EDT, Dry Weight Start Date: 09/13/20 Status: Orderedalbuterol 90 mcg/inh inhalation powder 2 puffs, Inhalation, Every 4 hours, PRN as needed, with spacer chamber take 2-6 puffs every 4 hours for 1 day then as needed, # 1 each, 4 Refills, Maintenance, 03/11/21 12:17:00 EDT, Powder, [facility] #[id number], 2 puffs Inhalation Every 4 merlene... Start Date: 03/11/21 Status: Orderedalbuterol-ipratropium 3 mg-0.5 mg/3 ml inhalation solution 3 mL, Neb, Once, albuterol Lot # [id number] Exp. 06/23/18 Ipratropium Lot # [id number] Exp. 09/21/19, 0 Refills, Maintenance, 03/15/18 15:30:00 [...] MOUTH TWICE DAILY Start Date: 03/16/21 Status: Ordered[place] Blood Pressure Monitor See Instructions, # 1 each, Refills 0, Tot. Refills 0, Maintenance, DX I10 Need 99+ months, 03/11/2112:18:00 EDT, Supply Start Date: 03/11/21 Status: Orderedibuprofen 800 mg oral tablet 1, tablet, By Mouth, Every 8 hours, # 30 tablet, Refills 0, Route to Pharmacy Electronically, [facility] #[id number], 180, cm, 09/13/20 12:28:00 EDT, Height, 95, kg, 09/09/20 0:07:00 EDT, Dry Weight Start Date: 01/29/21 Status: OrderedIpratropium 0.02% inhalation jose 500 mcg, Neb, 4 times a day, lot# [id number] exp august 2019, Refills 0, Maintenance, 03/25/18 17:17:52 EDT Start Date: 03/25/18 Status: Orderedlisinopril 10 mg oral tablet 1, tablet, By Mouth, Daily, # 90 tablet, Refills 0, Route to Pharmacy [facility]ically, [id number], 180, cm, 03/11/21 11:20:00 EDT, Height, 95, [...] Mouth, Daily, # 90 capsule, 0 Refills, [facility] #[id number], 180, cm, 03/11/21 11:20:00 EDT, Height, 95, [...]
--- OUTSIDE RECORDS SUMMARY | 2022-05-19 20:15 | XMS_ITS | Continuity of Care Document ---
:1965 Author Organization [facility] Address [address] [place] [address]- Care Team Providers Name Role Phone Rob Rubin NP Primary Care Physician [id number] Date(s): 12/18/21 - 01/17/22 [facility] [address] [place], [place] [address] Attending Physician: Edin Choudhury Admitting Physician: AdmEdin gifford Referring Physician: Admtr, ArSushma Allergies, Adverse Reactions, Alerts No Known Allergies Immunizations Given and Recorded Vaccine Date Status Refusal Reason tetanus/diphtheria/pertussis, acel(Tdap) 09/18/15 Given Medications albuterol 90 mcg/inh inhalation powder 2 puffs, Inhalation, Every 4 hours, PRN as needed, with spacer chamber take 2-6 puffs every 4 hours for 1 day then as needed, # 1 each, 4 Refills, Maintenance, 11/03/21 13:43:00 EDT, Powder, [facility]/pharmacy #[id number], 2 puffs Inhalation Every 4 hours,PRN:as... Start Date: 11/03/21 Status: OrderedARIPiprazole 5 mg oral tablet 5 mg, 1, tablet, By Mouth, Daily, # 30 tablet, Refills 0, Tot. Refills 0, Maintenance, 11/03/21 13:43:00 EDT, Route to Pharmacy Electronically, [facility]/pharmacy #[id number], Partial fill upon patient request if [...] 11/03/21 13:44:00 EDT, Route to Pharmacy Electronically, [facility]/pharmacy #[id number], Partial fill upon patientrequest if the [...] 12/31/21 9:24:00 EDT, Route to Pharmacy Electronically, [facility]/pharmacy #[id number], Partial fill upon patient request if [...] 12/31/21 9:24:00 EDT, Route to Pharmacy Electronically, [facility]/pharmacy #[id number], Partial fill upon patient request if the prescription is for a schedule II o... Start Date: 12/31/21 Status: OrderedVitamin B-12 100 mcg oral tablet 100 mcg, 1, tablet, By Mouth, Daily in AM, # 30 tablet, Refills 0, Tot. Refills 0, Maintenance, 12/31/21 9:24:00 EDT, Route to Pharmacy Electronically, [id number], Partial fill upon patient request if the prescription is for a schedule II opio... Start Date: 12/31/21 Status: OrderedZoloft 50 mg oral tablet 2 tablet = 100 mg, By Mouth, Daily, # 60 tablet, 0 Refills, Maintenance, 12/31/21 9:24:00 EDT, Tablet, [id number], Partial fill upon patient [...] Care Team PersonnelName: Rob Rubin NP Address: [address] [place] [address]
--- OUTSIDE RECORDS SUMMARY | 2022-05-19 20:15 | XMS_ITS | Continuity of Care Document ---
:1965 Author Organization [facility] Address [address] [place] [address]- Care Team Providers Name Role Phone Scottie PACK, Rob Primary Care Physician Encounter [facility] [place] ACCT R [id number] Date(s): 06/26/21 - 07/26/[address] [address]- Attending Physician: Edin Choudhury Admitting Physician: Edin Choudhury Referring Physician: AdmtrEdin Allergies, Adverse Reactions, Alerts No Known Allergies Immunizations Given and Recorded Vaccine Date Status Refusal Reason tetanus/diphtheria/pertussis, acel(Tdap) 09/18/15 Given Medications albuterol 0.083% inhalation solution 3 mL = 2.5 mg, Inhalation, Every 6 hours, PRN for wheezing, # 25 each, 5 Refills, Maintenance, 09/13/20 13:36:00 EDT, Solution, [facility] #[id number], 180, cm, 09/13/20 12:28:00 EDT, Height, 95, kg, 09/09/20 0:07:00 EDT, Dry Weight Start Date: 09/13/20 Status: Orderedalbuterol 90 mcg/inh inhalation powder 2 puffs, Inhalation, Every 4 hours, PRN as needed, with spacer chamber take 2-6 puffs every 4 hours for 1 day then as needed, # 1 each, 4 Refills, Maintenance, 03/11/21 12:17:00 EDT, Powder, [facility] #[id number], 2 puffs Inhalation Every 4 merlene... Start Date: 03/11/21 Status: Orderedalbuterol-ipratropium 3 mg-0.5 mg/3 ml inhalation solution 3 mL, Neb, Once, albuterol Lot # [id number] Exp. 06/23/18 Ipratropium Lot # [id number] Exp. 09/21/19, 0 Refills, Maintenance, 03/15/18 15:30:00 [...] tablet, Refills 0, [id number], 180, cm, 09/13/20 12:28:00 EDT, Height, 95, kg, 09/09/20 0:07:00 EDT, Dry Weight Start Date: 01/29/21 Status: OrderedIpratropium 0.02% inhalation jose 500 mcg, Neb, 4 times a day, lot# [id number] exp august 2019, Refills 0, Maintenance, 03/25/18 17:17:52 EDT Start Date: 03/25/18 Status: Orderedlisinopril 10 mg oral tablet 1, tablet, By Mouth, Daily, # 90 tablet, Refills 1, Tot. Refills 1, 06/17/21 16:01:00 EST, Route to Pharmacy Electronically, [facility] #[id number], 180, cm, 03/11/21 11:20:00 EDT, Height, 95, [...] Mouth, Daily, # 90 capsule, 0 Refills, [facility] #[id number], 180, cm, 03/11/21 11:20:00 EDT, Height, 95, [...]
--- OUTSIDE RECORDS SUMMARY | 2022-05-19 20:15 | XMS_ITS | Continuity of Care Document ---
:1965 Author Organization [facility] Address [address] [place] [address]- Care Team Providers Name Role Phone Scottie PACK, Rob Primary Care Physician Encounter [facility] [place] Date(s): 04/14/21 - 05/14/[address] [address]- Allergies, Adverse Reactions, Alerts Substance Reaction Severity Status No known allergies Active Immunizations Given and Recorded Vaccine Date Status Refusal Reason tetanus/diphtheria/pertussis, acel(Tdap) 09/18/15 Given Medications albuterol 0.083% inhalation solution 3 mL = 2.5 mg, Inhalation, Every 6 hours, PRN for wheezing, # 25 each, 5 Refills, Maintenance, 09/13/20 13:36:00 EDT, Solution, [facility] #[id number], 180, cm, 09/13/20 12:28:00 EDT, Height, 95, kg, 09/09/20 0:07:00 EDT, Dry Weight Start Date: 09/13/20 Status: Orderedalbuterol 90 mcg/inh inhalation powder 2 puffs, Inhalation, Every 4 hours, PRN as needed, with spacer chamber take 2-6 puffs every 4 hours for 1 day then as needed, # 1 each, 4 Refills, Maintenance, 03/11/21 12:17:00 EDT, Powder, [facility] #[id number], 2 puffs Inhalation Every 4 merlene... Start Date: 03/11/21 Status: Orderedalbuterol-ipratropium 3 mg-0.5 mg/3 ml inhalation solution 3 mL, Neb, Once, albuterol Lot # [id number] Exp. 06/23/18 Ipratropium Lot # [id number] Exp. 09/21/19, 0 Refills, Maintenance, 03/15/18 15:30:00 [...] MOUTH TWICE DAILY Start Date: 03/16/21 Status: [facility] See Instructions, # 1 each, Refills 0, Tot. Refills 0, Maintenance, DX I10 Need 99+ months, 03/11/2112:18:00 EDT, Supply Start Date: 03/11/21 Status: Orderedibuprofen 800 mg oral tablet 1, tablet, By Mouth, Every 8 hours, # 30 tablet, Refills 0, Route to Pharmacy Electronically, [facility] #[id number], 180, cm, 09/13/20 12:28:00 EDT, Height, 95, kg, 09/09/20 0:07:00 EDT, Dry Weight Start Date: 01/29/21 Status: OrderedIpratropium 0.02% inhalation jose 500 mcg, Neb, 4 times a day, lot# [id number] August 2019, Refills 0, Maintenance, 03/25/18 17:17:52 EDT Start Date: 03/25/18 Status: Orderedlisinopril 10 mg oral tablet 1, tablet, By Mouth, Daily, # 90 tablet, Refills 0, [id number], 180, cm, 03/11/21 11:20:00 EDT, Height, 95, [...] Mouth, Daily, # 90 capsule, 0 Refills, [facility] #[id number], 180, cm, 03/11/21 11:20:00 EDT, Height, 95, [...]
--- OUTSIDE RECORDS SUMMARY | 2022-05-19 20:15 | XMS_ITS | Continuity of Care Document ---
:1965 Author Organization [facility] Address [address] [place] [address]- Care Team Providers Name Role Phone Scottie PACK, Rob Primary Care Physician Encounter [facility] [place] Date(s): 04/15/21 - 05/25/[address] [address]- Attending Physician: Not on Staff, Attending MD Allergies, Adverse Reactions, Alerts Substance Reaction Severity Status No known allergies Active Immunizations Given and Recorded Vaccine Date Status Refusal Reason tetanus/diphtheria/pertussis, acel(Tdap) 09/18/15 Given Medications albuterol 0.083% inhalation solution 3 mL = 2.5 mg, Inhalation, Every 6 hours, PRN for wheezing, # 25 each, 5 Refills, Maintenance, 09/13/20 13:36:00 EDT, Solution, [facility] #[id number], 180, cm, 09/13/20 12:28:00 EDT, Height, 95, kg, 09/09/20 0:07:00 EDT, Dry Weight Start Date: 09/13/20 Status: Orderedalbuterol 90 mcg/inh inhalation powder 2 puffs, Inhalation, Every 4 hours, PRN as needed, with spacer chamber take 2-6 puffs every 4 hours for 1 day then as needed, # 1 each, 4 Refills, Maintenance, 03/11/21 12:17:00 EDT, Powder, [facility] #[id number], 2 puffs Inhalation Every 4 merlene... Start Date: 03/11/21 Status: Orderedalbuterol-ipratropium 3 mg-0.5 mg/3 ml inhalation solution 3 mL, Neb, Once, albuterol Lot # [id number] Exp. 06/23/18 Ipratropium Lot # [id number] Exp. 09/21/19, 0 Refills, Maintenance, 03/15/18 15:30:00 [...] MOUTH TWICE DAILY Start Date: 03/16/21 Status: Ordered[place] Blood Pressure Monitor See Instructions, # 1 each, Refills 0, Tot. Refills 0, Maintenance, DX I10 Need 99+ months, 03/11/2112:18:00 EDT, Supply Start Date: 03/11/21 Status: Orderedibuprofen 800 mg oral tablet 1, tablet, By Mouth, Every 8 hours, # 30 tablet, Refills 0, Route to Pharmacy Electronically, [facility] #[id number], 180, cm, 09/13/20 12:28:00 EDT, Height, 95, kg, 09/09/20 0:07:00 EDT, Dry Weight Start Date: 01/29/21 Status: OrderedIpratropium 0.02% inhalation jose 500 mcg, Neb, 4 times a day, lot# [id number] exp august 2019, Refills 0, Maintenance, 03/25/18 17:17:52 EDT Start Date: 03/25/18 Status: Orderedlisinopril 10 mg oral tablet 1, tablet, By Mouth, Daily, # 90 tablet, Refills 0, Route to Pharmacy Electronically, [id number], 180, cm, 03/11/21 11:20:00 EDT, Height, 95, [...] Mouth, Daily, # 90 capsule, 0 Refills, [facility] #[id number], 180, cm, 03/11/21 11:20:00 EDT, Height, 95, [...]
--- OUTSIDE RECORDS SUMMARY | 2022-05-19 20:15 | XMS_ITS | Continuity of Care Document ---
:1965 Author Organization [facility] Address [address] [place] [address]- Care Team Providers Name Role Phone Rob Rubin NP Primary Care Physician Encounter [facility] [place] Date(s): 06/03/21 - 07/04/[address] [address]- Attending Physician: Not on Staff, Attending MD Referring Physician: Rob Rubin NP Allergies, Adverse Reactions, Alerts No Known Allergies Immunizations Given and Recorded Vaccine Date Status Refusal Reason tetanus/diphtheria/pertussis, acel(Tdap) 09/18/15 Given Medications albuterol 0.083% inhalation solution 3 mL = 2.5 mg, Inhalation, Every 6 hours, PRN for wheezing, # 25 each, 5 Refills, Maintenance, 09/13/20 13:36:00 EDT, Solution, [facility] #[id number], 180, cm, 09/13/20 12:28:00 EDT, Height, 95, kg, 09/09/20 0:07:00 EDT, Dry Weight Start Date: 09/13/20 Status: Orderedalbuterol 90 mcg/inh inhalation powder 2 puffs, Inhalation, Every 4 hours, PRN as needed, with spacer chamber take 2-6 puffs every 4 hours for 1 day then as needed, # 1 each, 4 Refills, Maintenance, 03/11/21 12:17:00 EDT, Powder, [facility] #[id number], 2 puffs Inhalation Every 4 merlene... Start Date: 03/11/21 Status: Orderedalbuterol-ipratropium 3 mg-0.5 mg/3 ml inhalation solution 3 mL, Neb, Once, albuterol Lot # [id number] Exp. 06/23/18 Ipratropium Lot # [id number] Exp. 09/21/19, 0 Refills, Maintenance, 03/15/18 15:30:00 [...] MOUTH TWICE DAILY Start Date: 03/16/21 Status: [place] Blood Pressure Monitor See Instructions, # 1 each, Refills 0, Tot. Refills 0, Maintenance, DX I10 Need 99+ months, 03/11/2112:18:00 EDT, Supply Start Date: 03/11/21 Status: Orderedibuprofen 800 mg oral tablet 1, tablet, By Mouth, Every 8 hours, # 30 tablet, Refills 0, Route to Pharmacy Electronically, [facility] #[id number], 180, cm, 09/13/20 12:28:00 EDT, Height, 95, kg, 09/09/20 0:07:00 EDT, Dry Weight Start Date: 01/29/21 Status: OrderedIpratropium 0.02% inhalation jose 500 mcg, Neb, 4 times a day, lot# [id number] exp august 2019, Refills 0, Maintenance, 03/25/18 17:17:52 EDT Start Date: 03/25/18 Status: Orderedlisinopril 10 mg oral tablet 1, tablet, By Mouth, Daily, # 90 tablet, Refills 1, Tot. Refills 1, 06/17/21 16:01:00 EST, Route to Pharmacy Electronically, [facility] #[id number], 180, cm, 03/11/21 11:20:00 EDT, Height, 95, [...] Mouth, Daily, # 90 capsule, 0 Refills, [facility] #[id number], 180, cm, 03/11/21 11:20:00 EDT, Height, 95, [...]
--- OUTSIDE RECORDS SUMMARY | 2022-05-19 20:15 | XMS_ITS | Continuity of Care Document ---
:1965 Author Organization [facility] Address [address] [place] [address]- Care Team Providers Name Role Phone Rob Rubin NP Primary Care Physician [place] [facility] [place] 05/12/21 - 06/12/[address] [address]- Attending Physician: Vaishali Grajeda MD Admitting Physician: Vaishali Grajeda MD Referring Physician: Rob Rubin NP Allergies, Adverse Reactions, Alerts No Known Allergies Immunizations Given and Recorded Vaccine Date Status Refusal Reason tetanus/diphtheria/pertussis, acel(Tdap) 09/18/15 Given Medications albuterol 0.083% inhalation solution 3 mL = 2.5 mg, Inhalation, Every 6 hours, PRN for wheezing, # 25 each, 5 Refills, Maintenance, 09/13/20 13:36:00 EDT, Solution, [facility] #[id number], 180, cm, 09/13/20 12:28:00 EDT, Height, 95, kg, 09/09/20 0:07:00 EDT, Dry Weight Start Date: 09/13/20 Status: Orderedalbuterol 90 mcg/inh inhalation powder 2 puffs, Inhalation, Every 4 hours, PRN as needed, with spacer chamber take 2-6 puffs every 4 hours for 1 day then as needed, # 1 each, 4 Refills, Maintenance, 03/11/21 12:17:00 EDT, Powder, [facility] #[id number], 2 puffs Inhalation Every 4 merlene... Start Date: 03/11/21 Status: Orderedalbuterol-ipratropium 3 mg-0.5 mg/3 ml inhalation solution 3 mL, Neb, Once, albuterol Lot # [id number] Exp. 06/23/18 Ipratropium Lot # [id number] Exp. 09/21/19, 0 Refills, Maintenance, 03/15/18 15:30:00 [...] MOUTH TWICE DAILY Start Date: 03/16/21 [facility]: [facility] See Instructions, # 1 each, Refills 0, Tot. Refills 0, Maintenance, DX I10 Need 99+ months, 03/11/2112:18:00 EDT, Supply Start Date: 03/11/21 Status: Orderedibuprofen 800 mg oral tablet 1, tablet, By Mouth, Every 8 hours, # 30 tablet, Refills 0, Route to Pharmacy Electronically, [facility] #[id number], 180, cm, 09/13/20 12:28:00 EDT, Height, 95, kg, 09/09/20 0:07:00 EDT, Dry Weight Start Date: 01/29/21 Status: OrderedIpratropium 0.02% inhalation jose 500 mcg, Neb, 4 times a day, lot# [id number] exp august 2019, Refills 0, Maintenance, 03/25/18 17:17:52 EDT Start Date: 03/25/18 Status: Orderedlisinopril 10 mg oral tablet 1, tablet, By Mouth, Daily, # 90 tablet, Refills 0, Route to Pharmacy Electronically, [facility] #[id number], 180, cm, 03/11/21 11:20:00 EDT, Height, 95, [...] Mouth, Daily, # 90 capsule, 0 Refills, [facility] #[id number], 180, cm, 03/11/21 11:20:00 EDT, Height, 95, [...]
--- OUTSIDE RECORDS SUMMARY | 2022-05-19 20:15 | XMS_ITS | Continuity of Care Document ---
:1965 Author Organization [facility] Address [address] [place] [address]- Care Team Providers Name Role Phone Scottie PACK, Rob Primary Care Physician [place] [facility] - 05/04/[address] [address]- Attending Physician: Isela Bradley OD, I Admitting Physician: Isela Bradley OD, I Allergies, Adverse Reactions, Alerts Substance Reaction Severity Status No known allergies Active Immunizations Given and Recorded Vaccine Date Status Refusal Reason tetanus/diphtheria/pertussis, acel(Tdap) 09/18/15 Given Medications albuterol 0.083% inhalation solution 3 mL = 2.5 mg, Inhalation, Every 6 hours, PRN for wheezing, # 25 each, 5 Refills, Maintenance, 09/13/20 13:36:00 EDT, Solution, [facility] #[id number], 180, cm, 09/13/20 12:28:00 EDT, Height, 95, kg, 09/09/20 0:07:00 EDT, Dry Weight Start Date: 09/13/20 Status: Orderedalbuterol 90 mcg/inh inhalation powder 2 puffs, Inhalation, Every 4 hours, PRN as needed, with spacer chamber take 2-6 puffs every 4 hours for 1 day then as needed, # 1 each, 4 Refills, Maintenance, 03/11/21 12:17:00 EDT, Powder, [facility] #[id number], 2 puffs Inhalation Every 4 merlene... Start Date: 03/11/21 Status: Orderedalbuterol-ipratropium 3 mg-0.5 mg/3 ml inhalation solution 3 mL, Neb, Once, albuterol Lot # [id number] Exp. 06/23/18 Ipratropium Lot # [id number] Exp. 09/21/19, 0 Refills, Maintenance, 03/15/18 15:30:00 [...] tablet, Refills 0, Route to Pharmacy Electronically, [facility] #[id number], 180, cm, 09/13/20 12:28:00 EDT, Height, 95, kg, 09/09/20 0:07:00 EDT, Dry Weight Start Date: 01/29/21 Status: OrderedIpratropium 0.02% inhalation jose 500 mcg, Neb, 4 times a day, lot# [id number] exp august 2019, Refills 0, Maintenance, 03/25/18 17:17:52 EDT Start Date: 03/25/18 Status: Orderedlisinopril 10 mg oral tablet 1, tablet, By Mouth, Daily, # 90 tablet, Refills 1, Route to Pharmacy Electronically, [facility] #[id number], 180, cm, 03/11/21 11:20:00 EDT, Height, 95, [...] Mouth, Daily, # 90 capsule, 1 Refills, [facility] #[id number], 180, cm, 03/11/21 11:20:00 EDT, Height, 95, [...]
--- OUTSIDE RECORDS SUMMARY | 2022-05-19 20:15 | XMS_ITS | Continuity of Care Document ---
:1965 Author Organization [facility] Address [address] [place] [address]- Care Team Providers Name Role Phone Rob Rubin NP Primary Care Physician [place] [facility] [place] - 01/31/[address] [address]- Attending Physician: Not on Staff, Attending MD [...] 11/03/21 13:43:00 EDT, Route to Pharmacy Electronically, [facility]/pharmacy #[id number], Partial fill upon patient request if [...] 11/03/21 13:44:00 EDT, Route to Pharmacy Electronically, [facility]/pharmacy #[id number], Partial fill upon patientrequest if the [...] 12/31/21 9:24:00 EDT, Route to Pharmacy Electronically, [facility]/pharmacy #[id number], Partial fill upon patient request if [...] 12/31/21 9:24:00 EDT, Route to Pharmacy Electronically, [facility]/pharmacy #[id number], Partial fill upon patient request if the prescription is for a schedule II o... Start Date: 12/31/21 Status: OrderedVitamin B-12 100 mcg oral tablet 100 mcg, 1, tablet, By Mouth, Daily in AM, # 30 tablet, Refills 0, Tot. Refills 0, Maintenance, 12/31/21 9:24:00 EDT, Route to Pharmacy Electronically, [facility]/pharmacy #[id number], Partial fill upon patient request if [...] Care Team PersonnelName: Rob Rubin NP Address: [address] [place] [address]
--- OUTSIDE RECORDS SUMMARY | 2022-05-19 20:15 | XMS_ITS | Continuity of Care Document ---
:1965 Author Organization [facility] Address [address] [place] [address]- Care Team Providers Name Role Phone Scottie PACK, Rob Primary Care Physician En[place] [facility] [place] Date(s): 01/31/21 - 03/07/[address] [address]- Attending Physician: Not on Staff, Attending MD Allergies, Adverse Reactions, Alerts Substance Reaction Severity Status No known allergies Active Immunizations Given and Recorded Vaccine Date Status Refusal Reason tetanus/diphtheria/pertussis, acel(Tdap) 09/18/15 Given Medications albuterol 0.083% inhalation solution 3 mL = 2.5 mg, Inhalation, Every 6 hours, PRN for wheezing, # 25 each, 5 Refills, Maintenance, 09/13/20 13:36:00 EDT, Solution, [facility] #[id number], 180, cm, 09/13/20 12:28:00 EDT, Height, 95, kg, 09/09/20 0:07:00 EDT, Dry Weight Start Date: 09/13/20 Status: Orderedalbuterol 90 mcg/inh inhalation powder 2 puffs, Inhalation, Every 4 hours, PRN as needed, with spacer chamber take 2-6 puffs every 4 hours for 1 day then as needed, # 1 each, 4 Refills, Maintenance, 09/13/20 13:36:00 EDT, Powder, [facility] #[id number], 2 puffs Inhalation Every 4 merlene... Start Date: 09/13/20 Status: Orderedalbuterol-ipratropium 3 mg-0.5 mg/3 ml inhalation solution 3 mL, Neb, Once, albuterol Lot # [id number] Exp. 06/23/18 Ipratropium Lot # [id number] Exp. 09/21/19, 0 Refills, Maintenance, 03/15/18 15:30:00 EDT Start Date: 03/15/18 Stop Date: 05/23/18 Status: OrderedAmbien 10 mg oral tablet 1 tablet = 10 mg, By Mouth, Daily at bedtime, PRN for sleep, 0 Refills, Maintenance, 09/09/20 0:03:00 EDT, Tablet, Partial fill upon patient request if the prescription is for a schedule II opioid drug. Start Date: 09/09/20 Status: Orderedibuprofen 800 mg oral tablet 1, tablet, By Mouth, Every 8 hours, # 30 tablet, Refills 0, Route to Pharmacy Electronically, [facility] #[id number], 180, cm, 09/13/20 12:28:00 EDT, Height, 95, kg, 09/09/20 0:07:00 EDT, Dry Weight Start Date: 01/29/21 Status: OrderedIpratropium 0.02% inhalation jose 500 mcg, [facility], 4 times a day, lot# [id number] exp august 2019, Refills 0, Maintenance, 03/25/18 17:17:52 EDT Start Date: 03/25/18 Status: Orderedlisinopril 10 mg oral tablet 10 mg, 1, tablet, By Mouth, Daily, # 30 tablet, Refills 11, Tot. Refills 11, Maintenance, 09/13/20 13:39:00 EDT, Route to Pharmacy Electronically, [facility] #[id number], 180, cm, 09/13/20 12:28:00 EDT, Height, 95, kg, 09/09/20 0:07:00 EDT, Dry W... Start Date: 09/13/20 Status: OrderedNebulizer/Compressor See Instructions, # 1 each, [...]
--- OUTSIDE RECORDS SUMMARY | 2022-05-19 20:15 | XMS_ITS | Continuity of Care Document ---
:1965 Author Organization [facility] Address [address] [place] [address]- Care Team Providers Name Role Phone Rob Rubin NP Primary Care Physician [place] [facility] [place] Date(s): 12/31/21 - 01/02/[address] [address]- Encounter Diagnosis Syncope (Final) - 12/31/21 Weakness (Final) - 12/31/21 Dehydration (Final) - 01/02/22 YAO (acute kidney injury) (Final) - 01/02/22 Discharge Disposition: A-D/C Home Attending Physician: Renan Woods MD Admitting Physician: Tommy Churchill DO Referring Physician: Not on Staff, Referring MD Allergies, Adverse Reactions, Alerts No Known Allergies [...] EDT, Route to Pharmacy Electronically, [facility]/pharmacy #[id number], Partial fill upon patientrequest if the [...] EDT, Route to Pharmacy Electronically, [facility]/pharmacy #[id number], Partial fill upon patient request if the pre... Start Date: 12/31/21 Stop Date: 05/04/22 Status: OrderedMelatonin 5 mg oral tablet 1 tablet = 5 mg, By Mouth, Daily at bedtime, PRN for insomnia, # 60 tablet, 0 Refills, Maintenance, 01/01/22 12:47:00 EDT, Tablet, Partial fill upon patient request if the prescription is for a schedule II opioid drug. Start Date: 01/01/22 Status: Orderedmidodrine 5 mg oral tablet 5 mg, Tablet, By Mouth, 01/02/22 9:00:00 EDT Start Date: 01/02/22 Stop Date: 01/02/22 Status: CompletedtraZODone 50 mg oral tablet 50 mg, 1, [...] to oldest 1 2 3 [Reference Range]: Weight 97.4 kg (01/01/22 8:00 AM) Oxygen Saturation [94-100 %] 97 % 97 % 99 % (01/01/22 8:00 PM) (01/01/22 3:08 PM) (01/01/22 8:0 0 AM) Pulse Rate [55-90 bpm] 86 bpm 83 bpm 88 bpm (01/02/22 9:52 AM) (01/01/22 8:00 PM) (01/01/22 3:0 8 PM) Blood Pressure [90-138/55-84 mm 142/86 mm Hg 135/89 mm Hg 126/79 mm Hg Hg] *H* (01/01/22 8:00 PM) (01/01/22 3:08 PM) (01/02/22 9:52 AM) Respiratory Rate [16-30 br/min] 18 br/min 16 br/min 19 br/min (01/01/22 8:00 PM) (01/01/22 3:08 PM) (01/01/22 8:0 0 AM) Temperature [96.8-100.4 DegF] 97.9 DegF 97.6 DegF 98 .7 DegF (01/02/22 7:00 AM) (01/01/22 8:00 PM) (01/01/22 3:0 8 PM) Mode of Delivery (Oxygen) Room air Room air Room a ir (01/01/22 8:00 PM) (01/01/22 3:08 PM) (01/01/22 8:0 0 AM) Blood pressure sites Arm, right Arm, left Arm, left (01/01/22 3:08 PM) (01/01/22 6:43 AM) (01/01/22 1:0 7 AM) Temperature Route Oral Oral Oral (01/02/22 7:00 AM) (01/01/22 8:00 PM) (01/01/22 3:0 8 PM) Weight Obtained Via Bed scale (01/01/22 8:00 AM) Social History Social History Type Response Smoking Status Never (less than 100 in life time) entered on: 10/27/21 Sex
--- OUTSIDE RECORDS SUMMARY | 2022-05-19 20:15 | XMS_ITS | Continuity of Care Document ---
:1965 Author Organization [facility] Address [address] [place] [address]- Care Team Providers Name Role Phone Alexi Alicia NP Primary Care Physician [phone] [place] [facility] [place] 09/12/20 - 10/16/[address] [address]- Attending Physician: Earle Graff MD Admitting Physician: Earle Graff MD Allergies, Adverse Reactions, Alerts Substance Reaction Severity Status No known allergies Active Immunizations Given and Recorded Vaccine Date Status Refusal Reason tetanus/diphtheria/pertussis, acel(Tdap) 09/18/15 Given Medications albuterol 0.083% inhalation solution 3 mL = 2.5 mg, Inhalation, Every 6 hours, PRN for wheezing, # 25 each, 5 Refills, Maintenance, 09/13/20 13:36:00 EDT, Solution, [facility] #[id number], 180, cm, 09/13/20 12:28:00 EDT, Height, 95, kg, 09/09/20 0:07:00 EDT, Dry Weight Start Date: 09/13/20 Status: Orderedalbuterol 90 mcg/inh inhalation powder 2 puffs, Inhalation, Every 4 hours, PRN as needed, with spacer chamber take 2-6 puffs every 4 hours for 1 day then as needed, # 1 each, 4 Refills, Maintenance, 09/13/20 13:36:00 EDT, Powder, [facility] #[id number], 2 puffs Inhalation Every 4 merlene... Start Date: 09/13/20 Status: Orderedalbuterol-ipratropium 3 mg-0.5 mg/3 ml inhalation solution 3 mL, Neb, Once, albuterol Lot # [id number] Exp. 06/23/18 Ipratropium Lot # [id number] Exp. 09/21/19, 0 Refills, Maintenance, 03/15/18 15:30:00 [...] 12/12/20 13:38:00 EDT, 09/13/20 13:38:00 EDT, Capsule, [facility] #[id number], Partial fill uponpatient request if the prescription is for a sche... Start Date: 09/13/20 Stop Date: 12/12/20 Status: Orderedibuprofen 600 mg oral tablet 600 mg, 1, tablet, By Mouth, Every 8 hours, PRN, # 30 tablet, Refills 0, Tot. Refills 0, Maintenance, as needed for pain, 02/22/18 9:48:31 EDT, Route to Pharmacy Electronically, [id number], [facility]/pharmacy #[id number] Start Date: 02/22/18 Stop Date: 03/04/18 Status: OrderedIpratropium 0.02% inhalation jose 500 mcg, Neb, 4 times a day, lot# [id number] exp august 2019, Refills 0, Maintenance, 03/25/18 17:17:52 EDT Start Date: 03/25/18 Status: Orderedlisinopril 10 mg oral tablet 10 mg, 1, tablet, By Mouth, Daily, # 30 tablet, Refills 11, Tot. Refills 11, Maintenance, 09/13/20 13:39:00 EDT, Route to Pharmacy Electronically, [facility] #[id number], 180, cm, 09/13/20 12:28:00 EDT, Height, 95, kg, 09/09/20 0:07:00 EDT, Dry W... Start Date: 09/13/20 Status: Orderednabumetone 500 mg oral tablet 1 tablet = 500 mg, By Mouth, 2 times a day, # 60 tablet, 0 Refills, Maintenance, 09/13/20 13:30:00 EDT, Tablet, [facility] #[id number], Partial fill upon patient request if the [...]
--- OUTSIDE RECORDS SUMMARY | 2022-05-19 20:15 | XMS_ITS | Continuity of Care Document ---
:1965 Author Organization [facility] Address [address] [place] [address]- Care Team Providers Name Role Phone Scottie PACK, Rob Primary Care Physician Encounter [facility] [place] Date(s): 10/06/21 - 11/05/[address] [address]- Allergies, Adverse Reactions, Alerts No Known Allergies [...] 3 mL, Neb, Once, albuterol Lot # [id number] Exp. 06/23/18 Ipratropium Lot # [id number] Exp. 09/21/19, 0 Refills, Maintenance, 03/15/18 15:30:00 [...] Maintenance, 11/03/2212:44:00 EDT, Route to Pharmacy Electronically, [facility]/pharmacy #[id number], Partial fill upon patient request if the prescription is for a schedule II opioid... Start Date: 11/03/21 Status: OrderedIpratropium 0.02% inhalation jose 500 mcg, Neb, 4 times a day, lot# [id number] exp august 2019, Refills 0, Maintenance, 03/25/18 17:17:52 EDT Start Date: 03/25/18 Status: Orderedlisinopril 20 mg oral tablet 20 mg, 1, tablet, By Mouth, Daily, # 30 tablet, Refills 0, Tot. Refills 0, Maintenance, 11/03/21 13:44:00 EDT, Route to Pharmacy Electronically, [facility]/pharmacy #[id number], Partial fill upon patient request ifthe prescription is for a schedule II opioid drug... Start Date: 11/03/21 Status: Orderedmultivitamin with minerals Antioxidant Multiple Vitamins and Minerals oral capsule 1 tablet, By Mouth, Daily, # 30 tablet, 0 Refills, Maintenance, 11/03/21 13:44:00 EDT, Capsule, [facility]/pharmacy #[id number], Partial fill upon patient request [...] 11/03/21 13:46:00 EDT, Route to Pharmacy Electronically, [facility]/pharmacy #[id number], Partial fill upon patientrequest if [...]
--- OUTSIDE RECORDS SUMMARY | 2022-05-19 20:15 | XMS_ITS | Continuity of Care Document ---
:1965 Author Organization [facility] Address [address] [place] [address]- Care Team Providers Name Role Phone Alexi Alicia NP Primary Care Physician [place] [facility] [place] - 02/18/[address] [address]- [facility] Allergies, Adverse Reactions, Alerts Substance Reaction Severity [...] 3 mL, Neb, Once, albuterol Lot # [id number] Exp. 06/23/18 Ipratropium Lot # [id number] Exp. 09/21/19, 0 Refills, Maintenance, 03/15/18 15:30:00 EDT Start Date: 03/15/18 Stop Date: 05/23/18 Status: Orderedclotrimazole 1% topical cream 1 application, Topically, 2 times a day, for 7 days, # 60 Gm, 1 Refills, Acute 02/22/20 11:09:00 EDT, 02/08/20 11:09:00 EDT, Cream, [facility]/pharmacy #[id number], 1 application Topically 2 times a day,x7 days, 180.3, cm, 02/08/20 10:05:00 EDT, Height, 97.2, kg,... Start Date: 02/08/20 Stop Date: 02/22/20 Status: Orderedibuprofen 600 mg oral tablet 600 mg, 1, tablet, By Mouth, Every 8 hours, PRN, # 30 tablet, Refills 0, Tot. Refills 0, Maintenance, as needed for pain, 02/22/18 9:48:31 EDT, Route to Pharmacy Electronically, [id number], [facility]/pharmacy #[id number] Start Date: 02/22/18 Stop Date: 03/04/18 Status: OrderedIpratropium 0.02% inhalation jose 500 mcg, Neb, 4 times a day, lot# [id number] exp august 2019, Refills 0, Maintenance, 03/25/18 17:17:52 EDT Start Date: 03/25/18 Status: Orderedlisinopril 10 mg oral tablet 10 mg, 1, tablet, By Mouth, Daily, # 30 tablet, Refills 2, Tot. Refills 2, Maintenance, 02/08/20 10:51:00 EDT, Route to Pharmacy Electronically, [facility]/pharmacy #[id number], 180.3, cm, 02/08/20 10:05:00 EDT, [...]
--- OUTSIDE RECORDS SUMMARY | 2022-05-19 20:15 | XMS_ITS | Continuity of Care Document ---
:1965 Author Organization [facility] Address [address] [place] [address]- Care Team Providers Name Role Phone Scottie PACK, Rob Primary Care Physician [place] [facility] [place]/25/[place] - 04/24/[address] [address]- Allergies, Adverse Reactions, Alerts No Known Allergies [...] II opioid drug.... Start Date: 11/03/21 Status: Orderedbutenafine 1% topical cream 1 application, Topically, Daily, for 14 days, # 30 Gm, 1 Refills, Acute 05/11/22 10:47:00 EST, 04/13/22 10:47:00 EST, Cream, [facility] #[id number], Partial fill upon patient request if the prescription isfor a schedule II opioid drug., 1 application Top... Start Date: 04/13/22 Stop Date: 05/11/22 Status: OrderedCompression Stockings See Instructions, # 2 each, Maintenance, surgical, calf length 20-30 mm Hg, 01/02/22 11:47:00 EDT, Supply, 182.88, cm, 12/31/21 9:11:00 EDT, Height, 104.4, kg, 12/24/21 19:20:00 EDT, Dry Weight Start Date: 01/02/22 Status: Orderedgabapentin 300 mg oral capsule 300 mg, 1, capsule, By Mouth, 3 times a day, # 90 capsule, Refills 0, Tot. Refills 0, Maintenance, 11/03/21 13:44:00 EDT, Route to Pharmacy Electronically, [id number], Partial fill upon patientrequest if the prescription is for a schedule II... Start Date: 11/03/21 Status: Orderedlisinopril 20 mg oral tablet 20 mg, 1, tablet, By Mouth, Daily, # 90 tablet, Refills 1, Tot. Refills 1, Maintenance, 03/20/22 7:29:00 EDT, Route to Pharmacy Electronically, [id number], Partial fill upon patient request if the prescription is for a schedule II opioid drug.... Start Date: 03/20/22 Stop Date: 09/16/22 Status: Orderedloperamide 2 mg oral capsule 2 [...] opioid drug. Start Date: 01/01/22 Status: Orderedsertraline 50 mg oral tablet 1 tablet = 50 mg, By Mouth, Daily, # 90 tablet, 1 Refills, Maintenance, 04/13/22 10:32:00 EST, Tablet, [id number], Partial fill upon patient request if the prescription is for a schedule II opioid drug., 182.88, cm, 04/13/22 10:15:00 EST, [place]... Start Date: 04/13/22 Stop Date: 10/10/22 Status: OrderedtraZODone 50 mg oral tablet 50 mg, 1, tablet, By Mouth, Daily at bedtime, # 30 tablet, Refills 3, Tot. Refills 3, Maintenance, 04/13/22 10:40:00 EST, Route to Pharmacy Electronically, [id number], Partial fill upon patientrequest if the prescription is for a schedule II... Start Date: 04/13/22 Stop Date: 08/11/22 Status: OrderedVitamin B-12 100 mcg oral tablet [...] on: 10/27/21 Sex Patient Care team information Care Team PersonnelName: Rob Rubin NP Position: [facility] Associate Professional Member Role: PCP Address: Address: [address] [place] [id number]- Name: Hali Gage Position: [facility] RN Member Role: Primary Care Nurse Name: Oliva Richey RN Position: [facility] RN Member Role: Primary Care Nurse Name: Alex Dolan RN Position: [facility] SN RN Member Role: Primary Care Nurse Name: Erica Alanis RN Position: [facility] RN Member Role: Primary Care Nurse Name: Shantel Freeman RN Position: [facility] RN Member Role: Primary Care Nurse Name: Janelle Browne RN Position: [facility] RN Supv Member Role: Primary Care Nurse Name: Mari Jack RN Position: [facility] RN Member Role: Primary Care Nurse Name: Kayla Miller RN Position: [facility] RN Member Role: Primary Care Nurse Name: Shazia Jorgensen RN Position: [facility] RN Member Role: Primary Care Nurse Name: Bradley Vogel RN Position: [facility] RN Member Role: Primary Care Nurse Name: Red Mahmood RN Position: [facility] RN Member Role: Primary Care Nurse Name: Roshni Kenny RN Position: [facility] RN Member Role: Primary Care Nurse Care Team Related PersonsName: NEGRITO MEJIA Address: home [address] [place] [id number] Name: TAQUERIA MURILLO Address: home [address] [place] [address] Name: TAQUERIA MURILLO Address: home [address] [place] [address]
--- OUTSIDE RECORDS SUMMARY | 2022-05-19 20:15 | XMS_ITS | Continuity of Care Document ---
:1965 Author Organization [facility] re Address [address] [place] [address]- Care Team Providers Name Role Phone Rob Rubin NP Primary Care Physician Encounter [facility] [place] Date(s): 12/18/21 - 04/23/22 [facility] [address] [place], [place] [address] Discharge Disposition: A-D/C Home Attending Physician: Jeni Adair MD Admitting Physician: Mic Almaguer MD Referring Physician: Rob Rubin NP Allergies, [...] 4 Refills, Maintenance, 11/03/21 13:43:00 EDT, Powder, [facility]/pharmacy #[id number], 2 puffs Inhalation Every 4 hours,PRN:as... Start Date: 11/03/21 Status: OrderedARIPiprazole 5 mg oral tablet 5 mg, 1, tablet, By Mouth, Daily, # 30 tablet, Refills 0, Tot. Refills 0, Maintenance, 11/03/21 13:43:00 EDT, Route to Pharmacy Electronically, [facility]/pharmacy #[id number], Partial fill upon patient request if [...] Care Team PersonnelName: Rob Rubin NP Position: [facility] Associate Professional Member Role: PCP Address: Address: [address] [place] [address]- Name: Hali Gage Position: [facility] RN Member Role: Primary Care Nurse Name: Oliva Richey RN Position: [facility] RN Member Role: Primary Care Nurse Name: Alex Dolan RN Position: [facility] SN RN Member Role: Primary Care Nurse Name: Erica Alanis RN Position: [facility] RN Member Role: Primary Care Nurse Name: Shantel Freeman RN Position: [facility] RN Member Role: Primary Care Nurse Name: Janelle Browne RN Position: [facility] RN David Member Role: Primary Care Nurse Name: Mari Jack RN Position: [facility] RN Member Role: Primary Care Nurse Name: Kayla Miller RN Position: [facility] RN Member Role: Primary Care Nurse Name: Shazia Jorgensen RN Position: [facility] RN Member Role: Primary Care Nurse Name: Bradley Vogel RN Position: [facility] RN Member Role: Primary Care Nurse Name: Red Mahmood RN Position: [facility] RN Member Role: Primary Care Nurse Name: Roshni Kenny RN Position: [facility] RN Member Role: Primary Care Nurse Care Team Related PersonsName: NEGRITO MEJIA Address: home [address] [place] [address] Name: TAQUERIA MURILLO Address: home [address] [place] [address] Name: TAQUERIA MURILLO Address: home [address] [place] [address]
--- OUTSIDE RECORDS SUMMARY | 2022-05-19 20:15 | XMS_ITS | Continuity of Care Document ---
:1965 Author Organization [facility] Address [address] [place] [address]- Care Team Providers Name Role Phone Rob Rubin NP Primary Care Physician Encounter [facility] Date(s): 03/11/21 - 05/10/[address] [address]- Attending Physician: Not on Staff, Attending MD [...] 5 Refills, Maintenance, 09/13/20 13:36:00 EDT, Solution, [facility] #[id number], 180, cm, 09/13/20 12:28:00 EDT, Height, 95, kg, 09/09/20 0:07:00 EDT, Dry Weight Start Date: 09/13/20 Status: Orderedalbuterol 90 mcg/inh inhalation powder 2 puffs, Inhalation, Every 4 hours, PRN as needed, with spacer chamber take 2-6 puffs every 4 hours for 1 day then as needed, # 1 each, 4 Refills, Maintenance, 03/11/21 12:17:00 EDT, Powder, [facility] #[id number], 2 puffs Inhalation Every 4 merlene... Start Date: 03/11/21 Status: Orderedalbuterol-ipratropium 3 mg-0.5 mg/3 ml inhalation solution 3 mL, Neb, Once, albuterol Lot # [id number] Exp. 06/23/18 Ipratropium Lot # [id number] Exp. 09/21/19, 0 Refills, Maintenance, 03/15/18 15:30:00 [...] MOUTH TWICE DAILY Start Date: 03/16/21 Status: [facility] See Instructions, # 1 each, Refills 0, Tot. Refills 0, Maintenance, DX I10 Need 99+ months, 03/11/2112:18:00 EDT, Supply Start Date: 03/11/21 Status: Orderedibuprofen 800 mg oral tablet 1, tablet, By Mouth, Every 8 hours, # 30 tablet, Refills 0, Route to Pharmacy Electronically, [facility] #[id number], 180, cm, 09/13/20 12:28:00 EDT, Height, 95, kg, 09/09/20 0:07:00 EDT, Dry Weight Start Date: 01/29/21 Status: OrderedIpratropium 0.02% inhalation jose 500 mcg, Neb, 4 times a day, lot# [id number] exp august 2019, Refills 0, Maintenance, 03/25/18 17:17:52 EDT Start Date: 03/25/18 Status: Orderedlisinopril 10 mg oral tablet 1, tablet, By Mouth, Daily, # 90 tablet, Refills 0, Route to Pharmacy Electronically, [facility] #[id number], 180, cm, 03/11/21 11:20:00 EDT, Height, 95, [...] Mouth, Daily, # 90 capsule, 0 [id number], 180, cm, 03/11/21 11:20:00 EDT, Height, 95, [...]
--- OUTSIDE RECORDS SUMMARY | 2022-05-19 20:15 | XMS_ITS | Continuity of Care Document ---
:1965 Author Organization [facility] Address [address] [place] [address]- Care Team Providers Name Role Phone Scottie PACK, Rob Primary Care Physician Encounter [facility] Date(s): 03/18/22 - 04/17/[address] [address]- Allergies, Adverse Reactions, Alerts No Known Allergies Immunizations Given and Recorded Vaccine Date Status Refusal Reason tetanus/diphtheria/pertussis, acel(Tdap) 09/18/15 Given Medications albuterol 90 mcg/inh inhalation powder 2 puffs, Inhalation, Every 4 hours, PRN as needed, with spacer chamber take 2-6 puffs every 4 hours for 1 day then as needed, # 1 each, 4 Refills, Maintenance, 11/03/21 13:43:00 EDT, Powder, [facility]/pharmacy #[id number], 2 puffs Inhalation Every 4 [...] EDT, Route to Pharmacy Electronically, [facility]/pharmacy #[id number], Partial fill upon patientrequest [...] Care Team PersonnelName: Rob Rubin NP Position: S Associate Professional Member Role: PCP Address: Address: [address] [place] [address]- Name: Hali Gaeg Position: [facility] RN Member Role: Primary Care Nurse Name: Oliva Richey RN Position: [facility] RN Member Role: Primary Care Nurse Name: Alex Dolan RN Position: [facility] SN RN Member Role: Primary Care Nurse Name: Erica Alanis RN Position: [facility] RN Member Role: Primary Care Nurse Name: Shantel Freeman RN Position: [facility] RN Member Role: Primary Care Nurse Name: Janelle Browne RN Position: [facility] RN Supv Member Role: Primary Care Nurse Name: Mari Jack RN Position: [facility] RN Member Role: Primary Care Nurse Name: Kayla Miller RN Position: [facility] RN Member Role: Primary Care Nurse Name: Shazia Jorgensen RN Position: [facility] RN Member Role: Primary Care Nurse Name: Bradley Vogel RN Position: [facility] RN Member Role: Primary Care Nurse Name: Red Mahmood RN Position: [facility] RN Member Role: Primary Care Nurse Name: Roshni Kenny RN Position: [facility] RN Member Role: Primary Care Nurse Care Team Related PersonsName: NEGRITO MEJIA Address: home [address] [place] [id number] Name: TAQUERIA MURILLO Address: home [address] [place] [address] Name: TAQUERIA MURILLO Address: home [address] [place] [address]
--- OUTSIDE RECORDS SUMMARY | 2022-05-19 20:15 | XMS_ITS | Continuity of Care Document ---
:1965 Author Organization [facility] Address [address] [place] [address]- Care Team Providers Name Role Phone Rob Rubin NP Primary Care Physician [place] [facility] [place] 05/13/[place] - 07/04/[address] [address]- Attending Physician: Not on Staff, Attending MD Referring Physician: Rob Rubin NP Allergies, Adverse Reactions, Alerts No Known Allergies Immunizations Given and Recorded Vaccine Date Status Refusal Reason tetanus/diphtheria/pertussis, acel(Tdap) 09/18/15 Given Medications albuterol 0.083% inhalation solution 3 mL = 2.5 mg, Inhalation, Every 6 hours, PRN for wheezing, # 25 each, 5 Refills, Maintenance, 09/13/20 13:36:00 EDT, Solution, [facility] #[id number], 180, cm, 09/13/20 12:28:00 EDT, Height, 95, kg, 09/09/20 0:07:00 EDT, Dry Weight Start Date: 09/13/20 Status: Orderedalbuterol 90 mcg/inh inhalation powder 2 puffs, Inhalation, Every 4 hours, PRN as needed, with spacer chamber take 2-6 puffs every 4 hours for 1 day then as needed, # 1 each, 4 Refills, Maintenance, 03/11/21 12:17:00 EDT, Powder, [facility] #[id number], 2 puffs Inhalation Every 4 merlene... Start Date: 03/11/21 Status: Orderedalbuterol-ipratropium 3 mg-0.5 mg/3 ml inhalation solution 3 mL, Neb, Once, albuterol Lot # [id number] Exp. 06/23/18 Ipratropium Lot # [id number] Exp. 09/21/19, 0 Refills, Maintenance, 03/15/18 15:30:00 [...] MOUTH TWICE DAILY Start Date: 03/16/21 Status: [facility] Blood Pressure Monitor See Instructions, # 1 each, Refills 0, Tot. Refills 0, Maintenance, DX I10 Need 99+ months, 03/11/2112:18:00 EDT, Supply Start Date: 03/11/21 Status: Orderedibuprofen 800 mg oral tablet 1, tablet, By Mouth, Every 8 hours, # 30 tablet, Refills 0, Route to Pharmacy Electronically, [facility] #[id number], 180, cm, 09/13/20 12:28:00 EDT, Height, 95, kg, 09/09/20 0:07:00 EDT, Dry Weight Start Date: 01/29/21 Status: OrderedIpratropium 0.02% inhalation jose 500 mcg, Neb, 4 times a day, lot# [id number] exp august 2019, Refills 0, Maintenance, 03/25/18 17:17:52 EDT Start Date: 03/25/18 Status: Orderedlisinopril 10 mg oral tablet 1, tablet, By Mouth, Daily, # 90 tablet, Refills 1, Tot. Refills 1, 06/17/21 16:01:00 EST, Route to Pharmacy Electronically, [facility] #[id number], 180, cm, 03/11/21 11:20:00 EDT, Height, 95, [...] Mouth, Daily, # 90 capsule, 0 Refills, [facility] #[id number], 180, cm, 03/11/21 11:20:00 EDT, Height, 95, [...]
--- OUTSIDE RECORDS SUMMARY | 2022-05-19 20:15 | XMS_ITS | Continuity of Care Document ---
:1965 Author Organization [facility] Address [address] [place] [address]- Care Team Providers Name Role Phone Alexi Alicia NP Primary Care Physician Encounter [facility] Date(s): 10/16/20 - 11/15/[address] [address]- Allergies, Adverse Reactions, Alerts Substance Reaction Severity Status No known allergies Active Immunizations Given and Recorded Vaccine Date Status Refusal Reason tetanus/diphtheria/pertussis, acel(Tdap) 09/18/15 Given Medications albuterol 0.083% inhalation solution 3 mL = 2.5 mg, Inhalation, Every 6 hours, PRN for wheezing, # 25 each, 5 Refills, Maintenance, 09/13/20 13:36:00 EDT, Solution, [facility] #[id number], 180, cm, 09/13/20 12:28:00 EDT, Height, 95, kg, 09/09/20 0:07:00 EDT, Dry Weight Start Date: 09/13/20 Status: Orderedalbuterol 90 mcg/inh inhalation powder 2 puffs, Inhalation, Every 4 hours, PRN as needed, with spacer chamber take 2-6 puffs every 4 hours for 1 day then as needed, # 1 each, 4 Refills, Maintenance, 09/13/20 13:36:00 EDT, Powder, [facility] #[id number], 2 puffs Inhalation Every 4 merlene... Start Date: 09/13/20 Status: Orderedalbuterol-ipratropium 3 mg-0.5 mg/3 ml inhalation solution 3 mL, Neb, Once, albuterol Lot # [id number] Exp. 06/23/18 Ipratropium Lot # [id number] Exp. 09/21/19, 0 Refills, Maintenance, 03/15/18 15:30:00 [...] 12/12/20 13:38:00 EDT, 09/13/20 13:38:00 EDT, Capsule, [facility] #[id number], Partial fill uponpatient request if the prescription is for a sche... Start Date: 09/13/20 Stop Date: 12/12/20 Status: Orderedibuprofen 600 mg oral tablet 600 mg, 1, tablet, By Mouth, Every 8 hours, PRN, # 30 tablet, Refills 0, Tot. Refills 0, Maintenance, as needed for pain, 02/22/18 9:48:31 EDT, Route to Pharmacy Electronically, [id number], [facility]/pharmacy #[id number] Start Date: 02/22/18 Stop Date: 03/04/18 Status: OrderedIpratropium 0.02% inhalation jose 500 mcg, Neb, 4 times a day, lot# [id number] exp august 2019, Refills 0, Maintenance, 03/25/18 17:17:52 EDT Start Date: 03/25/18 Status: Orderedlisinopril 10 mg oral tablet 10 mg, 1, tablet, By Mouth, Daily, # 30 tablet, Refills 11, Tot. Refills 11, Maintenance, 09/13/20 13:39:00 EDT, Route to Pharmacy Electronically, [facility] #[id number], 180, cm, 09/13/20 12:28:00 EDT, Height, 95, kg, 09/09/20 0:07:00 EDT, Dry W... Start Date: 09/13/20 Status: Orderednabumetone 500 mg oral tablet 1 tablet = 500 mg, By Mouth, 2 times a day, # 60 tablet, 0 Refills, Maintenance, 09/13/20 13:30:00 EDT, Tablet, [facility] #[id number], Partial fill upon patient request if the [...]
--- OUTSIDE RECORDS SUMMARY | 2022-05-19 20:15 | XMS_ITS | Continuity of Care Document ---
:1965 Author Organization [facility] Address [address] [place] [address]- Care Team Providers Name Role Phone Rob Rubin NP Primary Care Physician [place] [facility] Date(s): 12/15/21 - 01/17/[address] [address]- Attending Physician: Not on Staff, Attending MD [...] 11/03/21 13:43:00 EDT, Route to Pharmacy Electronically, [facility]/pharmacy #[id number], Partial fill upon patient [...] 11/03/21 13:44:00 EDT, Route to Pharmacy Electronically, [facility]/pharmacy #[id number], Partial fill upon patientrequest [...] 12/31/21 9:24:00 EDT, Route to Pharmacy Electronically, [facility]/pharmacy #[id number], Partial fill upon patient [...] Care Team PersonnelName: Rob Rubin NP Address: [address] [place] [address]
--- OUTSIDE RECORDS SUMMARY | 2022-05-19 20:15 | XMS_ITS | Continuity of Care Document ---
:1965 Author Organization [facility] Address [address] [place] [address]- Care Team Providers Name Role Phone Maral PACK, Alexi Choi Primary Care Physician [phone] Encounter [facility] Date(s): 09/08/20 - 09/10/[address] [address] Discharge Disposition: A-D/C Home Attending Physician: Betsy Zhong DO Admitting Physician: Madison Joseph MD Referring Physician: Not on Staff, Referring MD [...] 3 mL, Neb, Once, albuterol Lot # [id number] Exp. 06/23/18 Ipratropium Lot # [id number] Exp. 09/21/19, 0 Refills, Maintenance, 03/15/18 15:30:00 EDT Start Date: 03/15/18 Stop Date: 05/23/18 Status: OrderedAmbien 10 mg oral tablet 1 tablet = 10 mg, By Mouth, Daily at bedtime, PRN for sleep, 0 Refills, Maintenance, 09/09/20 0:03:00 EDT, Tablet, Partial fill upon patient request if the prescription is for a schedule II opioid drug. Start Date: 09/09/20 Status: Orderedcyclobenzaprine 5 mg oral tablet 1 tablet = 5 mg, By Mouth, 3 times a day, PRN Spasm, for 7 days, # 21 tablet, 0 Refills, Acute 09/17/20 14:40:00 EDT, 09/10/20 14:40:00 EDT, Tablet, [facility] #[id number], Partial fill upon patient request if the prescription is for a schedule I... Start Date: 09/10/20 Stop Date: 09/17/20 Status: Orderedibuprofen 600 mg oral tablet 600 mg, 1, tablet, By Mouth, Every 8 hours, PRN, # 30 tablet, Refills 0, Tot. Refills 0, Maintenance, as needed for pain, 02/22/18 9:48:31 EDT, Route to Pharmacy Electronically, [id number], [facility]/pharmacy #[id number] Start Date: 02/22/18 Stop Date: 03/04/18 Status: OrderedIpratropium 0.02% inhalation jose 500 mcg, Neb, 4 times a day, lot# [id number] exp august 2019, Refills 0, Maintenance, 03/25/18 17:17:52 EDT Start Date: 03/25/18 Status: Orderedlisinopril 10 mg oral tablet 10 mg, Tablet, By Mouth, 09/10/20 9:00:00 EDT Start Date: 09/10/20 Stop Date: 09/10/20 Status: Completedlisinopril 10 mg oral tablet 10 mg, 1, tablet, By Mouth, Daily, # 30 tablet, Refills 0, Tot. Refills 0, Maintenance, 09/10/20 11:06:00 EDT, Route to Pharmacy Electronically, [facility] #[id number], 180, cm, 09/10/20 7:52:00 EDT, Height, 95, kg, 09/09/20 0:07:00 EDT, Dry Weight Start Date: 09/10/20 Status: OrderedNebulizer/Compressor See Instructions, # 1 each, Maintenance, use with albuterol solution, 03/25/18 14:31:47 EDT, Compound Start Date: 03/25/18 Status: Ordered Problem List Condition Effective Dates Status Health Status Informant Anxiety(Confirmed) Active Asthma(Confirmed) Active Passage of loose stools(Confirmed) Active Postprandial epigastric Active pain(Confirmed) Hypertension(Confirmed) Active Lower back pain(Confirmed) Active Encounter for screening Active colonoscopy(Confirmed) Vital Signs Most recent to oldest 1 2 3 [Reference Range]: Height 180 cm 180 cm 180 cm (09/10/20 11:41 AM) (09/10/20 7:52 AM) (09/10/20 4: 25 AM) Weight 95 kg 102.1 kg 102.1 kg (09/09/20 12:07 AM) (09/08/20 9:22 PM) (09/08/20 7: 03 PM) Oxygen Saturation [94-100 %] 97 % 97 % 94 % (09/10/20 11:41 AM) (09/10/20 7:52 AM) (09/10/20 4: 25 AM) Pulse Rate [55-90 bpm] 84 bpm 83 bpm 80 bpm (09/10/20 11:41 AM) (09/10/20 7:52 AM) (09/10/20 4: 25 AM) Body Mass Index [18.5-24.99] 29.32 *H* (09/09/20 12:07 AM) Blood Pressure [90-138/55-84 134/97 mm Hg 149/90 mm Hg 149 /90 mm Hg mm Hg] (09/10/20 11:41 AM) *H* *H* (09/10/20 8:54 AM) (09/10/20 7:52 AM) Respiratory Rate [16-30 20 br/min 20 br/min 16 br/mi n br/min] (09/10/20 11:41 AM) (09/10/20 7:52 AM) (09/10/20 7: 15 AM) Temperature [96.8-100.4 DegF] 98.1 DegF 98.2 DegF 98 .8 DegF (09/10/20 11:41 AM) (09/10/20 7:52 AM) (09/10/20 4: 25 AM) Mode of Delivery (Oxygen) Room air Room air Room a ir (09/10/20 11:41 AM) (09/10/20 7:52 AM) (09/10/20 4: 25 AM) Blood pressure sites Arm, right Arm, right Arm, right (09/10/20 11:41 AM) (09/10/20 7:52 AM) (09/10/20 4: 25 AM) Temperature Route Oral Oral Oral (09/10/20 11:41 AM) (09/10/20 7:52 AM) (09/10/20 4: 25 AM) Dry Weight 95 kg (09/09/20 12:07 AM) Weight Obtained Via Bed scale Standing scale (09/09/20 12:00 AM) (09/08/20 5:55 PM) Social History Social History Type Response Smoking Status Never smoker entered on: 09/09/15 Sex
--- OUTSIDE RECORDS SUMMARY | 2022-05-19 20:15 | XMS_ITS | Continuity of Care Document ---
:1965 Author Organization [facility] Address [address] [place] [address]- Care Team Providers Name Role Phone Scottie PACK, Rob Primary Care Physician Encounter [facility] [place] Date(s): 12/23/21 - 02/22/[address] [address]- Attending Physician: Not on Staff, Attending MD Allergies, Adverse Reactions, Alerts No Known [...] 13:44:00 EDT, Route to Pharmacy Electronically, [facility]/pharmacy #[id number], Partial fill upon patientrequest if [...] 9:24:00 EDT, Route to Pharmacy Electronically, [facility]/pharmacy #[id number], Partial fill upon patient request [...] 9:24:00 EDT, Route to Pharmacy Electronically, [facility]/pharmacy #[id number], Partial fill upon patient request if the prescription is for a schedule II o... Start Date: 12/31/21 Status: OrderedVitamin B-12 100 mcg oral tablet 100 mcg, 1, tablet, By Mouth, Daily in AM, # 30 tablet, Refills 0, Tot. Refills 0, Maintenance, 12/31/21 9:24:00 EDT, Route to Pharmacy Electronically, [facility]/pharmacy #[id number], Partial fill upon patient request [...] information PersonnelName: Rob Rubin NP Address: Address: [address] [place] [address]
--- OUTSIDE RECORDS SUMMARY | 2022-05-19 20:15 | XMS_ITS | Continuity of Care Document ---
:1965 Author Organization [facility] Address [address] [place] [address]- Care Team Providers Name Role Phone Scottie PACK, Rob Primary Care Physician [place] [facility] [place] - 12/24/[address] [address] Encounter Diagnosis Depression (Final) - 12/24/21 Suicidal ideation (Final) - 12/24/21 Hallucinations (Final) - 12/24/21 Discharge Disposition: Transfer to Psych Facility Attending Physician: Oziel Ventura DO Admitting Physician: Oziel Ventura DO Referring Physician: Not on Staff, Referring [...] 4 Refills, Maintenance, 11/03/21 13:43:00 EDT, Powder, [facility]/pharmacy #[id number], 2 puffs Inhalation Every 4 hours,PRN:as... Start Date: 11/03/21 Status: OrderedARIPiprazole 5 mg oral tablet 5 mg, 1, tablet, By Mouth, Daily, # 30 tablet, Refills 0, Tot. Refills 0, Maintenance, 11/03/21 13:43:00 EDT, Route to Pharmacy Electronically, [facility]/pharmacy #[id number], Partial fill upon patient request if the prescription is for a schedule II opioid drug.... Start Date: 11/03/21 Status: Orderedcyclobenzaprine 10 mg oral tablet 10 mg, Tablet, By Mouth, 12/24/21 9:00:00 EDT Start Date: 12/24/21 Stop Date: 12/24/21 Status: Completedcyclobenzaprine 10 mg oral tablet 10 mg, Tablet, By Mouth, 12/24/21 15:00:00 EDT Start Date: 12/24/21 Stop Date: 12/24/21 Status: Completedcyclobenzaprine 10 mg oral tablet 10 mg, 1, tablet, By Mouth, 3 times a day, # 21 tablet, Refills 1, Tot. Refills 1, Maintenance, 11/03/21 13:43:00 EDT, Route to Pharmacy Electronically, [facility]/pharmacy #[id number], Partial fill upon patient request if the prescription is for a schedule II opi... Start Date: 11/03/21 Stop Date: 11/17/21 Status: Orderedgabapentin 300 mg oral capsule 300 mg, Capsule, By Mouth, 12/24/21 9:00:00 EDT Start Date: 12/24/21 Stop Date: 12/24/21 Status: Completedgabapentin 300 mg oral capsule 300 mg, 1, capsule, By Mouth, 3 times a day, # 90 capsule, Refills 0, Tot. Refills 0, Maintenance, 11/03/21 13:44:00 EDT, Route to Pharmacy Electronically, [facility]/pharmacy #[id number], Partial fill upon patientrequest if the prescription is for a schedule II... Start Date: 11/03/21 Status: Orderedhydrochlorothiazide-lisinopril 12.5 mg-20 mg oral tablet See Instructions, [facility]ONY [facility]UKLA TABLETA [place]OS [place], # 30 tablet, 1 Refills, [id number], 30, TOMJULIENBERONICA TABLETA [place] [place], 180, cm, 12/15/21 10:44:00 EDT, Height, 104.4, kg, 11/08/21 20:13:00 EDT, Dry Weight Start Date: 12/16/21 Status: Orderedlisinopril 20 mg oral tablet 20 mg, Tablet, By Mouth, 12/24/21 9:00:00 EDT Start Date: 12/24/21 Stop Date: 12/24/21 Status: Completedlisinopril 20 mg oral tablet 20 mg, 1, tablet, By Mouth, Daily, # 30 tablet, Refills 0, Tot. Refills 0, Maintenance, 11/03/21 13:44:00 EDT, Route to Pharmacy Electronically, [facility]/pharmacy #[id number], Partial fill upon patient request ifthe prescription is for a schedule II opioid drug... Start Date: 11/03/21 Status: Ordered Problem List Condition Effective Dates Status Health Status Informant Anxiety(Confirmed) Active Asthma(Confirmed) Active Passage of loose stools(Confirmed) Active Postprandial epigastric Active pain(Confirmed) Hypertension(Confirmed) Active Lower back pain(Confirmed) Active Moderate major depression(Confirmed) Active Obese class I(Confirmed) Active Prediabetes(Confirmed) Active Encounter for screening Active colonoscopy(Confirmed) Vital Signs Most recent to oldest [Reference 1 2 3 Range]: Height 182.88 cm (12/24/21 9:42 AM) Weight 104.4 kg (12/24/21 9:42 AM) Oxygen Saturation [94-100 %] 99 % 99 % 96 % (12/24/21 8:16 AM) (12/24/21 5:32 AM) (12/23/21 10:00 PM) Pulse Rate [55-90 bpm] 59 bpm 55 bpm 56 bpm (12/24/21 9:42 AM) (12/24/21 8:16 AM) (12/24/21 5:32 A M) Body Mass Index [18.5-24.99] 31.22 *>HHI* (12/24/21 9:42 AM) Blood Pressure [90-138/55-84 mm 141/72 mm Hg 137/76 mm Hg 130/62 mm Hg Hg] *H* (12/24/21 8:16 AM) (12/24/21 5:32 AM ) (12/24/21 9:42 AM) Respiratory Rate [16-30 br/min] 16 br/min 16 br/min 16 br/min (12/24/21 5:08 PM) (12/24/21 9:56 AM) (12/24/21 9:56 A M) Temperature [96.8-100.4 DegF] 97.2 DegF 97.9 DegF 98 .4 DegF (12/24/21 9:42 AM) (12/24/21 5:32 AM) (12/23/21 10:00 PM) Mode of Delivery (Oxygen) Room air Room air Room a ir (12/24/21 8:16 AM) (12/24/21 5:32 AM) (12/23/21 10:00 PM) Blood pressure sites Arm, right (12/24/21 9:42 AM) Temperature Route Temporal Oral Oral (12/24/21 9:42 AM) (12/24/21 5:32 AM) (12/23/21 10:00 PM) Dry Weight 104.4 kg (12/24/21 9:42 AM) Social History Social History Type Response Smoking Status Never (less than 100 in life time) entered on: 10/27/21 Sex
--- OUTSIDE RECORDS SUMMARY | 2022-05-19 20:15 | XMS_ITS | Continuity of Care Document ---
:1965 Author Organization [facility] Address [address] [place] [id number]- Care Team Providers Name Role Phone Scottie PACK, Rob Primary Care Physician Encounter [facility] Date(s): 11/08/21 - 11/09/[address] [id number]- Discharge Disposition: A-D/C Walkout Attending Physician: Not on Staff, Attending MD Admitting Physician: Not on Staff, Admitting MD Referring Physician: Not on Staff, Referring [...] mg-0.5 mg/3 ml inhalation solution 3 mL, [facility], Once, albuterol Lot # [id number] Exp. 06/23/18 Ipratropium Lot # [id number] Exp. 09/21/19, 0 Refills, Maintenance, 03/15/18 15:30:00 [...] Maintenance, 11/03/2212:44:00 EDT, Route to Pharmacy Electronically, [facility]/pharmacy #[id number], Partial fill upon patient request if the prescription is for a schedule II opioid... Start Date: 11/03/21 Status: OrderedIpratropium 0.02% inhalation jose 500 mcg, Neb, 4 times a day, lot# [id number] exp august 2019, Refills 0, Maintenance, 03/25/18 17:17:52 EDT Start Date: 03/25/18 Status: Orderedlisinopril 20 mg oral tablet 20 mg, 1, tablet, By Mouth, Daily, # 30 tablet, Refills 0, Tot. Refills 0, Maintenance, 11/03/21 13:44:00 EDT, Route to Pharmacy Electronically, [facility]/pharmacy #[id number], Partial fill upon patient request ifthe prescription is for a schedule II opioid drug... Start Date: 11/03/21 Status: Orderedmultivitamin with minerals Antioxidant Multiple Vitamins and Minerals oral capsule 1 tablet, By Mouth, Daily, # 30 tablet, 0 Refills, Maintenance, 11/03/21 13:44:00 EDT, Capsule, [facility]/pharmacy #[id number], Partial fill upon patient [...] 11/03/21 13:46:00 EDT, Route to Pharmacy Electronically, [facility]/pharmacy #[id number], Partial fill upon patientrequest [...] Vital Signs Most recent to oldest [Reference Range]: 1 2 Height 180 cm 180 cm (11/08/21 8:13 PM) (11/08/21 7:57 PM) Weight 104.4 kg 104.4 kg (11/08/21 8:13 PM) (11/08/21 7:57 PM) Oxygen Saturation [94-100 %] 96 % (11/08/21 7:57 PM) Pulse Rate [55-90 bpm] 97 bpm *H* (11/08/21 7:57 PM) Body Mass Index [18.5-24.99] 32.22 *>HHI* (11/08/21 7:57 PM) Blood Pressure [90-138/55-84 mm Hg] 172/91 mm Hg *H* (11/08/21 7:57 PM) Respiratory Rate [16-30 br/min] 16 br/min (11/08/21 7:57 PM) Temperature [96.8-100.4 DegF] 98.6 DegF (11/08/21 7:57 PM) Mode of Delivery (Oxygen) Room air (11/08/21 7:57 PM) Blood pressure sites Arm, right (11/08/21 7:57 PM) Temperature Route Oral (11/08/21 7:57 PM) Dry Weight 104.4 kg 104.4 kg (11/08/21 8:13 PM) (11/08/21 7:57 PM) Weight Obtained Via Standing scale (11/08/21 7:57 PM) Dry Weight Obtained Via Standing scale (11/08/21 7:57 PM) Social History Social History Type Response Smoking Status Never (less than 100 in life time) entered on: 10/27/21 Sex
--- OUTSIDE RECORDS SUMMARY | 2022-05-19 20:15 | XMS_ITS | Continuity of Care Document ---
:1965 Author Organization [facility] Address [address] [place] [address]- Care Team Providers Name Role Phone Scottie PACK, Rob Primary Care Physician [place] [facility]/02[place] - 06/01/[address] [id number]- Allergies, Adverse Reactions, Alerts Substance Reaction Severity Status No known allergies Active Immunizations Given and Recorded Vaccine Date Status Refusal Reason tetanus/diphtheria/pertussis, acel(Tdap) 09/18/15 Given Medications albuterol 0.083% inhalation solution 3 mL = 2.5 mg, Inhalation, Every 6 hours, PRN for wheezing, # 25 each, 5 Refills, Maintenance, 09/13/20 13:36:00 EDT, Solution, [facility] #[id number], 180, cm, 09/13/20 12:28:00 EDT, Height, 95, kg, 09/09/20 0:07:00 EDT, Dry Weight Start Date: 09/13/20 Status: Orderedalbuterol 90 mcg/inh inhalation powder 2 puffs, Inhalation, Every 4 hours, PRN as needed, with spacer chamber take 2-6 puffs every 4 hours for 1 day then as needed, # 1 each, 4 Refills, Maintenance, 03/11/21 12:17:00 EDT, Powder, [facility] #[id number], 2 puffs Inhalation Every 4 merlene... Start Date: 03/11/21 Status: Orderedalbuterol-ipratropium 3 mg-0.5 mg/3 ml inhalation solution 3 mL, Neb, Once, albuterol Lot # [id number] Exp. 06/23/18 Ipratropium Lot # [id number] Exp. 09/21/19, 0 Refills, Maintenance, 03/15/18 15:30:00 [...] MOUTH TWICE DAILY Start Date: 03/16/21 Status: OrderedAust[facility] Blood Pressure Monitor See Instructions, # 1 each, Refills 0, Tot. Refills 0, Maintenance, DX I10 Need 99+ months, 03/11/2112:18:00 EDT, Supply Start Date: 03/11/21 Status: Orderedibuprofen 800 mg oral tablet 1, tablet, By Mouth, Every 8 hours, # 30 tablet, Refills 0, Route to Pharmacy Electronically, [facility] #[id number], 180, cm, 09/13/20 12:28:00 EDT, Height, 95, kg, 09/09/20 0:07:00 EDT, Dry Weight Start Date: 01/29/21 Status: OrderedIpratropium 0.02% inhalation jose 500 mcg, Neb, 4 times a day, lot# [id number] exp august 2019, Refills 0, Maintenance, 03/25/18 17:17:52 EDT Start Date: 03/25/18 Status: Orderedlisinopril 10 mg oral tablet 1, tablet, By Mouth, Daily, # 90 tablet, Refills 0, Route to Pharmacy Electronically, [facility] #[id number], 180, cm, 03/11/21 11:20:00 EDT, Height, 95, [...] Mouth, Daily, # 90 capsule, 0 Refills, [facility] #[id number], 180, cm, 03/11/21 11:20:00 EDT, Height, 95, [...]
[2022-05-19 20:39] VITALS: BP 145/91; PULSE 82; RESP 16; TEMP 37.1; O2SAT 96
--- NOTE | 2022-05-19 21:02 | PC.NURSE ---
pt a&ox3, vss, reports worsening depression, increased life stressors - unstable housing, pt denies SI/HI, urine sample obtained.
[2022-05-19 21:07] LABS: Amphetamine Screen Urine Not Detected (Not Detect); Barbiturates, Urine Not Detected (Not Detect); Benzodiazepines Screen Urine Not Detected (Not Detect); Cannabinoid Screen Urine Not Detected (Not Detect); Cocaine Screen Urine Not Detected (Not Detect); Fentanyl, urine POSITIVE (Not Detect); Opiate Screen Urine Not Detected (Not Detect); Phencyclidine Screen Urine Not Detected (Not Detect)
--- NOTE | 2022-05-19 22:09 | ED_ITS ---
HPI - Altered Mental Status General Chief Complaint: Psychiatric Symptoms Stated Complaint: ?AMS PER EMS Time Seen by Provider: 05/19/22 19:03 Source: patient Mode of arrival: EMS Limitations: no limitations History of Present Illness HPI narrative: Patient brought by EMS for increased with IV while in the bus noticed to be sleepy. Patient does take Klonopin which he took earlier, took his muscle relaxant last night and his friend gave him a pill which he took 1 hour prior to arrival patient does not know what can appeal was a patient feel depressed denies any SI or HI has a follow-up planned with therapist patient feels safe at home denies any substance abuse in the past Related Data Previous Rx's Medication Instructions Recorded fluticasone propionate 50 1 spray intranasal DAILY 11/05/20 mcg/actuation nasal congestion #16 grams spray,suspension (Flonase Allergy Relief) ibuprofen 600 mg tablet 600 mg PO Q6H PRN fever or pain 04/28/21 #20 tabs loperamide 2 mg tablet 2 mg PO Q4H PRN loose stool #14 04/28/21 tabs ondansetron HCl 4 mg tablet 4 mg PO Q6H PRN nausea and 04/28/21 (Zofran) vomiting #14 tabs Allergies Allergy/AdvReac Type Severity Reaction Status Date / Time No Known Allergies Allergy Verified 02/11/22 09:22 [No Known Allergies*] Review of Systems Review of Systems: Yes all other systems are reviewed and are negative [facility] Past Medical History Medical History Anxiety Chronic pain Depression Difficulty sleeping HTN (hypertension) Social History Social History Patient Tobacco Use Status: Never used Tobacco Advance Directives: No Advance Directives Information Provided: No Physical Exam ED Vital Signs: Vital Signs - 24 hr 05/19/22 19:17 05/19/22 20:39 Temperature 98.2 F 98.7 F Pulse Rate 87 82 Respiratory Rate 18 16 Blood Pressure 152/91 H 145/91 H Pulse Oximetry 97 96 Oxygen Delivery Method Room Air Room Air BMI result Body Mass Index 32.1 Appearance: Alert. Oriented X3. No acute distress. Eyes: PERRLA, No Nystagmus HEENT: Pharynx normal. Oral Mucosa moist atraumatic normocephalic Neck: Normal inspection. Neck supple. CVS: Normal heart rate and rhythm. Pulses normal. Respiratory: No respiratory distress. Equal air entry bilateral, no wheezing/rales/rhonchi Abdomen: Soft and nontender. Bowel sounds are present, no mass palpable, no CVA tenderness Skin: Skin warm and dry. Normal skin color. Normal skin turgor. Extremities: No lower extremity edema. No calf tenderness Neuro: Oriented X 3. No motor deficit. No sensory deficit.No cerebellar signs , cranial nerves II-XII intact Medical Decision Making Medical Decision Making [facility] Narrative: Patient's urine tox screen shows positive for fentanyl likely the pill given by the friend patient ambulatory as such saturating 96% at room air has a family support would like to go home and follow with outpatient Lab Data [facility] Lab Attestation statement: I reviewed the patient's lab results. Labs: Lab Results 05/19/22 Range/Units 20:39 Urine Opiates Screen Not Detected (Not Detect) Urine Fentanyl Screen POSITIVE H (Not Detect) Ur Barbiturates Screen Not Detected (Not Detect) Ur Phencyclidine Scrn Not Detected (Not Detect) Ur Amphetamines Screen Not Detected (Not Detect) U Benzodiazepines Scrn Not Detected (Not Detect) Urine Cocaine Screen Not Detected (Not Detect) U Marijuana (THC) Screen Not Detected (Not Detect) Discharge Plan Discharge Clinical Impression: Substance abuse Patient Disposition: Home, Self-Care Instructions: Fentanyl (Into the mouth), Polysubstance Abuse (ED) Additional Instructions: Do not take non-prescribed medication or drugs Follow-up with your PCP or therapist Prescriptions: No Action fluticasone propionate [Flonase Allergy Relief] 50 mcg/actuation spray,suspension 1 spray intranasal DAILY Qty: 16 0RF Rx Instructions: administer into each nostril ibuprofen 600 mg tablet 600 mg PO Q6H PRN (Reason: fever or pain) Qty: 20 0RF ondansetron HCl [Zofran] 4 mg tablet 4 mg PO Q6H PRN (Reason: nausea and vomiting) Qty: 14 0RF loperamide 2 mg tablet 2 mg PO Q4H PRN (Reason: loose stool) Qty: 14 0RF Rx Instructions: administer after each loose stool until symptoms controlled; do not exceed 8 mg per 24 hrs Interventions: [place]-Suicide Risk Severity Scale Last Done: 05/19/22 19:29 ED Discharge Assessment Last Done: 05/19/22 21:19 Discharge Date/Time: 05/19/22 21:20
== END 2022-05-19 21:20 | disposition home or self-care (01) ==
PROVIDERS: Emergency Provider Internal Medicine
DX: F11.19 Opioid abuse with unspecified opioid-induced disorder (principal); Z71.51 Drug abuse counseling and surveillance of drug abuser; Z79.899 Other long term (current) drug therapy
CPT/HCPCS: 80307; 99284

== ENCOUNTER 2022-06-23 21:37 | Emergency (ER) | payer OTHER, SELFPAY ==
[2022-06-23 22:01] VITALS: BP 144/80; BP 210/102; PULSE 77; PULSE 79; RESP 20; TEMP 37.2; O2SAT 95; BMI 32.8
[2022-06-23 22:10] VITALS: BP 144/80; PULSE 75; RESP 16; TEMP 37.2; O2SAT 95
--- NOTE | 2022-06-23 22:19 | ED.HA ---
HPI - Headache General Chief Complaint: Headache Stated Complaint: hypertensive Time Seen by Provider: 06/23/22 21:51 History of Present Illness HPI Narrative: Patient is a 56-year-old male with a history of hypertension history of heroin use history of cervical spine issues presented today worry about his blood pressure and also having a headache. Patient denies any fever chills. No coughing or congestion or upper respiratory symptoms. No diaphoresis. No focal weakness. Patient noted his blood pressure to be 160/110 presented to the ED. patient has been missing his medications from time to time. Admits to using heroin 2 days ago. Related Data Previous Rx's Medication Instructions Recorded fluticasone propionate 50 1 spray intranasal DAILY 11/05/20 mcg/actuation nasal congestion #16 grams spray,suspension (Flonase Allergy Relief) ibuprofen 600 mg tablet 600 mg PO Q6H PRN fever or pain 04/28/21 #20 tabs loperamide 2 mg tablet 2 mg PO Q4H PRN loose stool #14 04/28/21 tabs ondansetron HCl 4 mg tablet 4 mg PO Q6H PRN nausea and 04/28/21 (Zofran) vomiting #14 tabs Allergies Allergy/AdvReac Type Severity Reaction Status Date / Time No Known Allergies Allergy Verified 02/11/22 09:22 [No Known Allergies*] Review of Systems Review of Systems: Positive headache Yes all other systems are reviewed and are negative [facility] Past Medical History Attestation statement: The following information was validated with the patient. Medical History Anxiety Chronic pain Depression Difficulty sleeping HTN (hypertension) Social History Social History Patient Tobacco Use Status: Never used Tobacco Smoked in Last 30 Days: No Use of substances other than those prescribed or required for medical reasons: Yes Substance Use Type: Heroin Advance Directives: No Advance Directives Information Provided: Yes Physical Exam Vital Signs: Vital Signs: Last Vital Signs Temp 99 F 06/23/22 22:10 Pulse 75 06/23/22 22:10 Resp 16 06/23/22 22:10 BP 144/80 H 06/23/22 22:10 Pulse Ox 95 06/23/22 22:10 O2 Del Method 01/31/23 22:10 BMI result Body Mass Index 32.8 Appearance: Alert. Oriented X3. No acute distress. Eyes: Pupils equal, round and reactive to light. ENT: Pharynx normal. Neck: Normal inspection. Neck supple. No lymph nodes noted. No crepitus CVS: Normal heart rate and rhythm. Pulses normal. Normal S1 and S2 Respiratory: No respiratory distress. Breath sounds normal. No Wheezing. No rales Abdomen: Soft and nontender. No rigidity. No distention. good BS x4 Skin: Skin warm and dry. Normal skin color. Normal skin turgor. Extremities: No lower extremity edema. Neurovascular intact to all extremities. No Lacerations. No Rash Neuro: Oriented X 3. No motor deficit. No sensory deficit. Moving all extermities. No slurred speech Medical Decision Making Medical Decision Making [facility] Narrative: Patient's blood pressure is down to 144/80. Creatinine is normal. CBC is normal. EKG my interpretation showed a sinus pattern heart rate is 70 FL QRS QT within normal limits. Patient neurologically intact well-appearing will discharge home will have patient taking his medication on a regular basis. Go to detox, stop taking heroin. Will discharge home Differential Diagnosis Differential Diagnoses: The differential diagnosis associated with the presentation includes Polysubstance abuse, hypertension, hypertensive emergency Lab Data [facility] Lab Attestation statement: I reviewed the patient's lab results. 06/23/22 22:44 06/23/22 22:44 Labs: Lab Results 06/23/22 06/23/22 Range/Units 22:44 22:44 WBC 5.4 (4.8-10.8) X10*3/uL RBC 4.22 L (4.60-5.80) X10*6/uL Hgb 12.5 L (14.0-18.0) g/dl Hct 37.9 L (42.0-52.0) % MCV 89.8 (80.0-98.0) fL MCH 29.6 (27.0-33.0) pg MCHC 33.0 (31.0-36.0) g/dl RDW 11.9 (11.0-16.0) % Plt Count 207 (160-400) X10*3/uL MPV 10.0 (9.4-12.4) fL Immature Gran % (Auto) 0.2 (0.0-0.4) % Neut % (Auto) 50.6 (45-73) % Lymph % (Auto) 29.3 (20-40) % Polk % (Auto) 11.4 H (2-11) % Eos % (Auto) 7.6 H (0-4) % Baso % (Auto) 0.9 (0-2) % Lymph # (Auto) 1.6 (1.2-4.9) X10*3/uL Polk # (Auto) 0.6 (0.1-1.2) X10*3/uL Eos # (Auto) 0.4 (0.0-0.4) X10*3/uL Baso # (Auto) 0.1 (0.0-0.2) X10*3/uL Abs Immat Gran (auto) 0.01 (0.00-0.03) X10*3/uL Absolute Neuts (auto) 2.8 (2.0-8.3) x10*3/uL Absolute Nucleated RBC 0.000 (0.0-0.012) X10*3/uL Nucleated RBC % (auto) 0.0 (0.0-0.2) /100WBC Sodium 138 (135-145) mmol/L Potassium 4.7 (3.3-5.1) mmol/L Chloride 103 (96-108) mmol/L Carbon Dioxide 31 H (22-29) mmol/L Anion Gap 9 L (12-20) BUN 17 H (9-16) mg/dL Creatinine 1.24 (0.5-1.4) mg/dL Estim Creat Clear Calc 77.8 Estimated GFR > 60 Random Glucose 102 (60-115) mg/dL Calcium 9.3 (8.4-10.2) mg/dL Independent Interpretation I performed an independent interpretation of an: EKG Interpretation: Sinus heart rate is 70 FL QRS QT within normal limits is no acute ST segment elevation noted. Chronic Conditions Patient?s care impacted by: Hypertension Polysubstance abuse Social Determinants Patient?s care significantly limited by Social Determinants of Health including: Alcoholism and drug addiction in family Discharge Plan Discharge Clinical Impression: Headache, Hypertension Patient Disposition: Home, Self-Care Instructions: Hypertension (ED), Acute Headache (ED) Additional Instructions: Please take your blood pressure medicine. Please stop taking heroin. Please follow-up for your blood pressure. Please go to detox for your heroin addiction. Prescriptions: No Action fluticasone propionate [Flonase Allergy Relief] 50 mcg/actuation spray,suspension 1 spray intranasal DAILY Qty: 16 0RF Rx Instructions: administer into each nostril ibuprofen 600 mg tablet 600 mg PO Q6H PRN (Reason: fever or pain) Qty: 20 0RF ondansetron HCl [Zofran] 4 mg tablet 4 mg PO Q6H PRN (Reason: nausea and vomiting) Qty: 14 0RF loperamide 2 mg tablet 2 mg PO Q4H PRN (Reason: loose stool) Qty: 14 0RF Rx Instructions: administer after each loose stool until symptoms controlled; do not exceed 8 mg per 24 hrs Referrals: Physician,Unknown J [Primary Care Provider] - (Blood pressure recheck in 2 days) Print Language: Rwandan
--- OUTSIDE RECORDS SUMMARY | 2022-06-23 22:19 | XMS_ITS | Continuity of Care Document ---
:1965 Author Organization [facility] Address [address] [place] [address]- Care Team Providers Name Role Phone Scottie PACK, Rob Primary Care Physician Encounter [facility] [place] Date(s): 04/27/22 - 05/27/[address] [address]- Allergies, Adverse Reactions, Alerts No Known Allergies Immunizations Given and Recorded Vaccine Date Status Refusal Reason tetanus/diphtheria/pertussis, acel(Tdap) 09/18/15 Given Medications albuterol 90 mcg/inh inhalation powder 2 puffs, Inhalation, Every 4 hours, PRN as needed, with spacer chamber take 2-6 puffs every 4 hours for 1 day then as needed, # 1 each, 4 Refills, Maintenance, 11/03/21 13:43:00 EDT, Powder, [facility]/pharmacy #[id number], 2 puffs Inhalation Every 4 hours,PRN:as... [...] 11/03/21 13:44:00 EDT, Route to Pharmacy Electronically, [facility]/pharmacy #[id number], Partial fill upon patientrequest if the prescription is for a schedule II... Start Date: 11/03/21 Status: Orderedlisinopril 20 mg oral tablet 20 mg, 1, tablet, By Mouth, Daily, # 90 tablet, Refills 1, Tot. Refills 1, Maintenance, 05/27/22 11:13:00 EST, Route to Pharmacy Electronically, [facility]/pharmacy #[id number], Partial fill upon patient request ifthe prescription is for a schedule II opioid drug... Start Date: 05/27/22 Stop Date: 11/23/22 Status: OrderedMelatonin 5 mg oral tablet 1 tablet = 5 mg, By Mouth, Daily at bedtime, PRN for insomnia, # 60 tablet, 0 Refills, Maintenance, 01/01/22 12:47:00 EDT, Tablet, Partial fill upon patient request if the prescription is for a schedule II opioid drug. Start Date: 01/01/22 Status: Orderedomeprazole 20 mg oral delayed release tablet 1 tablet = 20 mg, By Mouth, Daily, # 30 tablet, 2 Refills, Maintenance, 05/27/22 11:13:00 EST, CR Tablet, [facility] #[id number], Partial fill upon patient request if the prescription is for a schedule II opioid drug., 182.88, cm, 04/30/22 14:42:00 EST, H... Start Date: 05/27/22 Stop Date: 08/25/22 Status: OrderedSEROquel 50 mg oral tablet 1 tablet = 50 mg, By Mouth, Daily, use at bedtime stop taking trazodone, # 30 tablet, 1 Refills, Maintenance, 04/30/22 15:18:00 EST, Tablet, [facility] #[id number], Partial fill upon patient request if theprescription is for a schedule II opioid drug.... Start Date: 04/30/22 Stop Date: 06/29/22 Status: Orderedsertraline 100 mg oral tablet 1 tablet = 100 mg, By Mouth, Daily, # 90 tablet, 0 Refills, Maintenance, 04/30/22 15:10:00 EST, Tablet, [facility]/pharmacy #[id number], to replace 50mg, 182.88, cm, 04/30/22 14:42:00 EST, Height, 104.4, kg, 12/24/21 19:20:00 EDT, Dry Weight Start Date: 04/30/22 Stop Date: 07/29/22 Status: OrderedVitamin B-12 100 mcg oral tablet 100 mcg, 1, tablet, By Mouth, Daily in AM, # 30 tablet, Refills 0, Tot. Refills 0, Maintenance, 12/31/21 9:24:00 EDT, Route to Pharmacy Electronically, [facility]/pharmacy #[id number], Partial fill upon patient request if [...] Confirmed Active Postprandial Confirmed Active epigastric pain Chronic GERD Confirmed Active Housing situation Confirmed Active unstable Hypertension Confirmed Active Lower back pain Confirmed Active Moderate major Confirmed Active depression Obese class I Confirmed Active Prediabetes Confirmed Active Itching of male Confirmed Active genitalia Encounter for Confirmed Active screening colonoscopy Social History Social History Type Response Smoking Status Never (less than 100 in life time) entered on: 10/27/21 Sex Patient Care team information Care Team PersonnelName: Rob Rubin NP Position: [facility] Associate Professional Member Role: PCP Address: Address: [address] [place] [address] Name: Hali Gage Position: S RN Member Role: Primary Care Nurse Name: Oliva Richey RN Position: S RN Member Role: Primary Care Nurse Name: Alex Dolan RN Position: S RN Member Role: Primary Care Nurse Name: Erica Alanis RN Position: [facility] RN Member Role: Primary Care Nurse Name: Shantel Freeman RN Position: [facility] RN Member Role: Primary Care Nurse Name: Janelle Browne RN Position: [facility] RN David Member Role: Primary Care Nurse Name: Mari Jack RN Position: [facility] RN Member Role: Primary Care Nurse Name: Kayla Miller RN Position: [facility] RN Member Role: Primary Care Nurse Name: Shazia Jorgensen RN Position: [facility] RN Member Role: Primary Care Nurse Name: Bradley Vogel RN Position: [facility] RN Member Role: Primary Care Nurse Name: Red Mahmood RN Position: [facility] RN Member Role: Primary Care Nurse Name: Roshni Kenny RN Position: [facility] RN Member Role: Primary Care Nurse Care Team Related PersonsName: NEGRITO MEJIA Address: home [address] [place] [id number] Name: TAQUERIA MURILLO Address: home [address] [place] [address] Name: TAQUERIA MURILLO Address: home [address] [place] [address]
--- NOTE | 2022-06-23 22:20 | ECG_ITS ---
Test Reason : HEADACHE Blood Pressure : / mmHG Vent. Rate : 071 BPM Atrial Rate : 071 BPM P-R Int : 196 ms QRS Dur : 080 ms QT Int : 384 ms P-R-T Axes : 032 045 066 degrees QTc Int : 417 ms Normal sinus rhythm Normal ECG When compared with ECG of 02-MAY-2019 19:26, No significant change was found Referred By: Azul Aiken Electronically Signed By:Diego Cohen
[2022-06-23 22:55] LABS: MANUAL DIFF FLAG NO
[2022-06-23 22:57] LABS: Basophils Absolute Auto 0.1 X10*3/uL (0.0-0.2); Basophils Percent Auto 0.9 % (0-2); Eosinophils Absolute Auto 0.4 X10*3/uL (0.0-0.4); Eosinophils Percent Auto 7.6 % (0-4); Hematocrit 37.9 % (42.0-52.0); Hemoglobin 12.5 g/dl (14.0-18.0); Imm Gran Abs Auto 0.01 X10*3/uL (0.00-0.03); Imm Gran Pct Auto 0.2 % (0.0-0.4); Lymphocytes Absolute Auto 1.6 X10*3/uL (1.2-4.9); Lymphocytes Percent Auto 29.3 % (20-40); Mean Corpuscular Hemoglobin 29.6 pg (27.0-33.0); Mean Corpuscular Volume 89.8 fL (80.0-98.0); Monocytes Absolute Auto 0.6 X10*3/uL (0.1-1.2); Monocytes Percent Auto 11.4 % (2-11); Neutrophils Absolute Auto 2.8 x10*3/uL (2.0-8.3); Neutrophils Percent Auto 50.6 % (45-73); Platelet Count 207 X10*3/uL (160-400); Red Blood Count 4.22 X10*6/uL (4.60-5.80); Red Cell Distribution Width 11.9 % (11.0-16.0); White Blood Count 5.4 X10*3/uL (4.8-10.8)
[2022-06-23 23:13] LABS: Anion Gap 9 (12-20); Blood Urea Nitrogen 17 mg/dL (9-16); Calcium 9.3 mg/dL (8.4-10.2); Carbon Dioxide 31 mmol/L (22-29); Chloride 103 mmol/L (96-108); Creatinine Clr Calc Pharmacy 77.8; Estimated Glomerular Filt Rate > 60; Glucose Random 102 mg/dL (60-115); Potassium 4.7 mmol/L (3.3-5.1); Sodium 138 mmol/L (135-145)
[2022-06-23 23:34] LABS: Influenza A PCR NEGATIVE (Negative); Influenza B PCR NEGATIVE (Negative); Resp Syncy Virus RNA Qual PCR NEGATIVE (Negative); SARS COV2 PCR INHOUSE NEGATIVE (Negative)
== END 2022-06-23 23:42 | disposition home or self-care (01) ==
PROVIDERS: Emergency Provider Emergency Medicine Emergency Medical Services
DX: R51.9 Headache, unspecified (principal); I10 Essential (primary) hypertension; F19.10 Other psychoactive substance abuse, uncomplicated; Z91.14 Patient's other noncompliance with medication regimen; Z20.822 Contact with and (suspected) exposure to COVID-19; Z20.828 Contact with and (suspected) exposure to other viral communicable diseases
CPT/HCPCS: 0241U; 36415; 80048; 85025; 93005; 99283; 99285

== ENCOUNTER 2023-02-23 13:59 | Outpatient (AMB) | payer OTHER, SELFPAY ==
--- NOTE | 2023-02-23 14:15 | A.OFFVIS_ITS ---
Intake Intake Visit Reasons: Erectile dysfunction Intake Note: New Patient presents for initial visit for Erectile Dysfunction Urology Medications: none Blood Thinner: none Nurse Sane Required: Yes Accompanied by: Self / Same As Patient Allergies No Known Allergies [No Known Allergies*] Allergy (Verified 02/23/23 14:16) HPI HPI Comments History of Present Illness Details Checo is a 57-year-old Chilean-speaking male patient of Dr. Rubin. He has a past medical history of anxiety, hypertension, chronic pain, difficulty sleeping, and depression. He presents to the office today as a new patient for erectile dysfunction. In discussion with the patient today he reports noting ongoing erectile dysfunction. He discusses at length feeling many if not all of his health issues are related to his divorce. He discusses and stresses feeling like he has a lot of trauma regarding his divorce. He discusses at length feeling betrayed by his who cheated on him multiple times including cheating on him with his brother. He discusses feeling his erectile dysfunction is related to this issue as he feels that he is not good enough due to this issue. He reports following up with the psychiatrist regarding his ongoing depression and stress. It is unclear if the patient has sexual desire as he continues to talk about his past and is unsure if he even feels any work up is necessary at this time as he relates all of his issues to his past trauma. Discussed further workup with testosterone free and total, and PSA for further assessment evaluation. He currently denies any bothersome urinary issues at this time. He denies urinary urgency, urinary frequency, incontinence, hematuria, dysuria, foul smelling urine, changes to urinary stream, flank pain, fever, and or chills. He does however report nocturia however reports nocturia is infrequent. He is happy with his current voiding parameters. In office urinalysis results reviewed with the patient today. Discussed at length potential causes for erectile dysfunction. Discussed and stressed the im portance of lifestyle modifications with healthy eating habits, daily activity, and adequate sleep daily to improve with erectile dysfunction as well as overall health and well-being. [facility] Medical History Anxiety HTN (hypertension) Chronic pain Difficulty sleeping Depression Social History Patient Tobacco Use Status: Never used Tobacco Substance Use Type: Heroin Review of Systems Const Reports as per HPI Eyes Reports no additional complaints ENT Reports no additional complaints Card Reports as per HPI Resp Reports no additional complaints GI Reports no additional complaints Reports as per HPI Musc Reports no additional complaints Neuro Reports no additional complaints Psych Reports as per HPI Endo Reports no additional complaints Physical Exam Const General: cooperative, healthy appearing, comfortable, no acute distress, well developed, alert and awake Nutritional Appearance: overweight Orientation/consciousness: patient oriented x3 Limitations: no limitations HEENT Head: Yes normal to inspection, Yes normocephalic and Yes atraumatic Ears: hearing grossly normal bilaterally Eyes General: appearance normal, both eyes and all related structures Neck Neck: Yes normal visual inspection and Yes trachea midline Chest Chest palpation & inspection: normal inspection of the chest Resp Effort & Inspection: normal respiratory effort and able to speak in complete sentences Cardio Rate: regular rate GI Inspection: Yes normal to inspection General: Yes no CVA tenderness Back/Spine/Pelvis Back: no CVA tenderness Skin General skin exam: no rashes or lesions noted Neuro General: patient oriented x3 Extrem General: Yes normal to inspection Psych Appearance: grossly normal and well kempt Mental Status: mental status grossly normal Speech and movement: Normal speech and movement present and Clear speech present Affect: Other affect and mood findings present (flat) Attitude: cooperative and Avoids eye contact (attititude/behavior) Thought process: Perseverating thought process present Thought content: Normal thought content present Insight: Fair insight present (Psych) Judgement: Fair judgement present (Psych) Results AMB Urinalysis, Automated UA Leukoctes 0 Candace/uL Last Edit by [employer] on 02/23/23 14:25 UA Nitrite Negative Last Edit by [employer] on 02/23/23 14:25 UA Urobilinogen 0.2 mg/dL Last Edit by [employer] on 02/23/23 14:25 UA Protein 15 mg/dL Last Edit by [employer] on 02/23/23 14:25 UA pH 5.5 Last Edit by [employer] on 02/23/23 14:25 UA Blood 0 Dev/uL Last Edit by [employer] on 02/23/23 14:25 UA Specific [place] 1.030 Last Edit by [employer] on 02/23/23 14:25 UA Ketone Negative Last Edit by Radha Handy on 02/23/23 14:25 UA Bilirubin 0 mg/dL Last Edit by Radha Handy on 02/23/23 14:25 UA Glucose 0 mg/dL Last Edit by Radha Handy on 02/23/23 14:25 Results Reviewed Results Reviewed: Laboratory Last Values Urine pH (Auto) 5.5 02/23/23 14:18 Specific [place] (Auto) 1.030 02/23/23 14:18 Urine Protein (Auto) 15 mg/dL 02/23/23 14:18 Glucose (UA)(Auto) 0 mg/dL 02/23/23 14:18 Urine Ketones (Auto) Negative 02/23/23 14:18 Urine Blood (Auto) 0 Dev/uL 02/23/23 14:18 Urine Nitrite (Auto) Negative 02/23/23 14:18 Urine Bilirubin (Auto) 0 mg/dL 02/23/23 14:18 Urine Urobilinogen (Auto) 0.2 mg/dL 02/23/23 14:18 Leukocyte Esterase (Auto) 0 Candace/uL 02/23/23 14:18 Assessment & Plan Assessment & Plan (1) Erectile dysfunction: Code(s): N52.9 - Male erectile dysfunction, unspecified Plan In office urinalysis results reviewed with the patient today. Discussed at length potential causes for erectile dysfunction. Discussed at length lifestyle modifications; as noted above. Continue to follow-up with psychiatrist as planned. Will obtain testosterone free and total as well as PSA for further assessment evaluation. Patient denies any bothersome urinary issues at this time. Start 5 mg of Cialis daily as discussed and prescribed. Follow-up in 6-8 weeks with labs to be completed prior; or sooner with any issues, concerns, and or questions. Orders: Orders AMB Urinalysis Automated Today Z13.9 - Encounter for screening, unspecified Testosterone, Free/Total Today N52.9 - Male erectile dysfunction, unspecified Prostate Specific Antigen Today N40.0 - Benign prostatic hyperplasia without lower urinary tract symptoms Medications: New tadalafil (Cialis) [place] [id number] [facility] Group DR33 5 mg PO DAILY 90 days 90 tabs 0RF Patient Instructions: The patient had an opportunity to ask questions regarding the treatment plan. All questions were answered. Physical exam, labs, and imaging were discussed and reviewed in detail. As well as risks, benefits, and discussion of treatment choices. No major barriers to understanding were identified. The patient expressed understanding and agreement with the above treatment plan. The patient was made aware they should contact our office by phone for worsening of their current condition, the appearance of new symptoms, or with any questions or concerns. Compliance is encouraged with any medications and follow up testing that is ordered. It is a privilege to be allowed the opportunity to participate in? your urological care.? Again, if you have any questions or concerns If you have any questions or concerns please do not hesitate to contact me. The office is [phone]. This note is constructed using voice recognition software. While every effort has been made to ensure accuracy precision devices inspector/tester errors may have been included. Yours sincerely, BOBY Hilton Coding Level of Care Code New Pt Level 4 (94150) Diagnoses Erectile dysfunction N52.9
== END 2023-02-23 15:07 | disposition home or self-care (01) ==
PROVIDERS: PCP Nurse Practitioner Family; Referring Provider Nurse Practitioner Family; Visit Provider Nurse Practitioner Family
DX: N52.9 Male erectile dysfunction, unspecified (principal)
CPT/HCPCS: 99204

== ENCOUNTER → 2023-02-23 13:59 | Outpatient (BNVA) | payer OTHER, SELFPAY | PROVIDERS: PCP Nurse Practitioner Family; Referring Provider Nurse Practitioner Family; Visit Provider Nurse Practitioner Family | DX: N52.9 Male erectile dysfunction, unspecified (principal) | CPT/HCPCS: 81003; 99202 ==

== ENCOUNTER 2023-04-23 13:59 | Outpatient (AMB) | payer OTHER, SELFPAY ==
--- NOTE | 2023-04-23 13:53 | A.OFFVIS_ITS ---
Intake Intake Visit Reasons: follow up/labs(set) Intake Note: Patient presents for follow up visit for Erectile Dysfunction/labs (testosterone 248) (psa 0.7) Urology Medications: none Blood Thinner: none Bottle Carrier Required: Yes Bottle Carrier Name: SEFERINO TORRESDONNA Accompanied by: Self / Same As Patient Allergies No Known Allergies [No Known Allergies*] Allergy (Verified 04/24/23 19:49) Medication List - Last Reconciled 04/24/23 by CHONG Hilton- aripiprazole 5 mg PO DAILY fluticasone propionate 50 mcg/actuation (Flonase Allergy Relief) 1 spray intranasal DAILY ibuprofen 600 mg PO Q6H PRN lisinopril-hydrochlorothiazide 20-12.5 mg 1 tab PO DAILY loperamide 2 mg PO Q4H PRN omeprazole 20 mg PO DAILY ondansetron HCl (Zofran) 4 mg PO Q6H PRN quetiapine 100 mg PO BEDTIME tadalafil (Cialis) 5 mg PO DAILY 90 days HPI HPI Comments History of Present Illness Details Checo is a 57-year-old Togolese-speaking male patient of Dr. Rubin. He has a past medical history of anxiety, hypertension, chronic pain, difficulty sleeping, and depression. He presents to the office today for follow-up. Of note, patient was seen approximately 2 months ago as a new patient for erectile dysfunction at which time the patient was started on low-dose Cialis 5 mg daily and labs were ordered (testosterone, free testosterone, SHBG, and PSA). In discussion with the patient today he reports to have not started low dose Cialis as prescibed. He states he went to the pharmacy and no medication was sent however in review of patients chart it does appear script was sent. Recent labs reviewed with the patient today. 04/15- SHBG--21.5, Testosterone--248, Fr ee testosterone 5.82, PSA 0.7 He discusses at length feeling many if not all of his health issues are related to his divorce. He discusses and stresses feeling like he has a lot of trauma regarding his divorce. He discusses at length feeling betrayed by his who cheated on him multiple times including cheating on him with his brother. He discusses feeling his erectile dysfunction is related to this issue as he feels that he is not good enough due to this issue. He reports following up with the psychiatrist regarding his ongoing depression and stress. Discussed trial of Cialis 5 mg daily and reassessing labs in 3 months for further assessment evaluation. He currently denies any bothersome urinary issues at this time. He denies urinary urgency, urinary frequency, incontinence, hematuria, dysuria, foul smelling urine, changes to urinary stream, flank pain, fever, and or chills. He does however report nocturia however reports nocturia is infrequent. He is happy with his current voiding parameters. In office urinalysis results reviewed with the patient today. Discussed at length potential causes for erectile dysfunction. Discussed and stressed the importance of lifestyle modifications with healthy eating habits, daily activity, and adequate sleep daily to improve with erectile dysfunction as well as overall health and well- being. [facility] Medical History Anxiety HTN (hypertension) Chronic pain Difficulty sleeping Depression Social History Patient Tobacco Use Status: Never used Tobacco Substance Use Type: Heroin Review of Systems Const Reports as per HPI Eyes Reports no additional complaints ENT Reports no additional complaints Card Reports as per HPI Resp Reports no additional complaints GI Reports no additional complaints Reports as per HPI Musc Reports no additional complaints Neuro Reports no additional complaints Psych Reports as per HPI Endo Reports no additional complaints Physical Exam Const General: cooperative, healthy appearing, comfortable, no acute distress, well developed, alert and awake Nutritional Appearance: overweight Orientation/consciousness: patient oriented x3 Limitations: no limitations HEENT Head: Yes normal to inspection, Yes normocephalic and Yes atraumatic Ears: hearing grossly normal bilaterally Eyes General: appearance normal, both eyes and all related structures Neck Neck: Yes normal visual inspection and Yes trachea midline Chest Chest palpation & inspection: normal inspection of the chest Resp Effort & Inspection: normal respiratory effort and able to speak in complete sentences Cardio Rate: regular rate GI Inspection: Yes normal to inspection General: Yes no CVA tenderness Back/Spine/Pelvis Back: no CVA tenderness Skin General skin exam: no rashes or lesions noted Neuro General: patient oriented x3 Extrem General: Yes normal to inspection Psych Appearance: grossly normal and well kempt Mental Status: mental status grossly normal Speech and movement: Normal speech and movement present and Clear speech present Affect: Other affect and mood findings present (flat) Attitude: cooperative and Avoids eye contact (attititude/behavior) Thought process: Perseverating thought process present Thought content: Normal thought content present Insight: Fair insight present (Psych) Judgement: Fair judgement present (Psych) Results AMB Urinalysis, Automated UA Leukoctes 0 Candace/uL Last Edit by [employer] on 04/23/23 14:13 UA Nitrite Negative Last Edit by [employer] on 04/23/23 14:13 UA Urobilinogen 0.2 mg/dL Last Edit by [employer] on 04/23/23 14:13 UA Protein 15 mg/dL Last Edit by [employer] on 04/23/23 14:13 UA pH 6.0 Last Edit by [employer] on 04/23/23 14:13 UA Blood 10 Dev/uL Last Edit by [employer] on 04/23/23 14:13 UA Specific [place] 1.030 Last Edit by [employer] on 04/23/23 14:13 UA Ketone Negative Last Edit by [employer] on 04/23/23 14:13 UA Bilirubin 0 mg/dL Last Edit by [employer] on 04/23/23 14:13 UA Glucose 0 mg/dL Last Edit by [employer] on 04/23/23 14:13 Results Reviewed Results Reviewed: Laboratory Last Values Urine pH (Auto) 6.0 04/23/23 13:55 Specific [place] (Auto) 1.030 04/23/23 13:55 Urine Protein (Auto) 15 mg/dL 04/23/23 13:55 Glucose (UA)(Auto) 0 mg/dL 04/23/23 13:55 Urine Ketones (Auto) Negative 04/23/23 13:55 Urine Blood (Auto) 10 Dev/uL 04/23/23 13:55 Urine Nitrite (Auto) Negative 04/23/23 13:55 Urine Bilirubin (Auto) 0 mg/dL 04/23/23 13:55 Urine Urobilinogen (Auto) 0.2 mg/dL 04/23/23 13:55 Leukocyte Esterase (Auto) 0 Candace/uL 04/23/23 13:55 Assessment & Plan Assessment & Plan (1) Erectile dysfunction: Code(s): N52.9 - Male erectile dysfunction, unspecified (2) Hypogonadism in male: Code(s): E29.1 - Testicular hypofunction Plan In office urinalysis results reviewed with the patient today. Discussed at length potential causes for erectile dysfunction. Discussed at length lifestyle modifications; as noted above. Continue to follow-up with psychiatrist as planned. Recent labs reviewed with the patient today; as noted above. Discussed at length importance of lifestyle modifications related to erectile dysfunction as well as overall health and well-being. Start 5 mg Cialis as discussed and prescribed. Patient denies any bothersome urinary issues at this time. Testosterone, free testosterone, and PSA in 3 months Follow-up in 3 months with labs to be completed prior; or sooner with any issues, concerns, and or questions. Orders: Orders AMB Urinalysis Automated 04/23/23 Z13.9 - Encounter for screening, unspecified Testosterone, Free/Total 3 Months E29.1 - Testicular hypofunction, N52.9 - Male erectile dysfunction, unspecified Medications: Refilled tadalafil (Cialis) [facility] [id number] [facility] Group DR33 5 mg PO DAILY 90 days 90 tabs 1RF Patient Instructions: The patient had an opportunity to ask questions regarding the treatment plan. All questions were answered. Physical exam, labs, and imaging were discussed and reviewed in detail. As well as risks, benefits, and discussion of treatment choices. No major barriers to understanding were identified. The patient expressed understanding and agreement with the above treatment plan. The patient was made aware they should contact our office by phone for worsening of their current condition, the appearance of new symptoms, or with any questions or concerns. Compliance is encouraged with any medications and follow up testing that is ordered. It is a privilege to be allowed the opportunity to participate in? your urological care.? Again, if you have any questions or concerns If you have any questions or concerns please do not hesitate to contact me. The office is [phone]. This note is constructed using voice recognition software. While every effort has been made to ensure accuracy electric refrigerator servicer errors may have been included. Yours sincerely, BOBY Hilton Coding Level of Care Code Est Pt Level 3 (84549) Diagnoses Erectile dysfunction N52.9 Hypogonadism in male E29.1
--- OUTSIDE RECORDS SUMMARY | 2023-04-23 14:01 | XMS_ITS | Continuity of Care Document ---
Author Name Unknown Organization [facility] Address [address] [place] [address]- Care Team Providers Care Farm Service Adviser Name Role Phone Rob Rubin NP Primary Care Physician Encounter [facility] [id number] Date(s): 03/11/23 - 04/10/23 [facility] [address] [place] [address] Attending Physician: Edin Choudhury Admitting Physician: AdmtrEdin Referring Physician: Admtr, Ar8 Allergies, Adverse Reactions, Alerts No Known Allergies Immunizations Given and Recorded Vaccine Date Status Refusal Reason tetanus/diphtheria/pertussis, acel(Tdap) 09/18/15 Given Medications albuterol 0.083% inhalation solution 3 mL = 2.5 mg, Inhalation, Every 6 hours, PRN for wheezing, # 60 each, 3 Refills, Maintenance, 07/30/22 12:34:00 EST, Solution, [id number], instructions in Filipino please, 182.88, cm, 07/30/22 10:06:00 EST, Height, 106.6, kg, 07/08/22 8:56:00... Start Date: 07/30/22 Status: Ordered albuterol 90 mcg/inh inhalation powder 2 puffs, Inhalation, Every 4 hours, PRN as needed, with spacer chamber take 2-6 puffs every 4 hoursfor 1 day then as needed, # 1 each, 4 Refills, Maintenance, 11/03/21 13:43:00 EDT, Powder, [id number], 2 puffs Inhalation Every 4 hours,PRN:as... Start Date: 11/03/21 Status: Ordered albuterol CFC free 90 mcg/inh inhalation aerosol 2-6 puffs, Inhalation, Every 4 hours, PRN, # 8.5 Gm, Refills 3, Tot. Refills 3, Maintenance, 07/30/22 12:34:00 EST, Aerosol, Route to Pharmacy Electronically, [id number], [facility]/pharmacy #[id number], instructions in portuguese please, 18... Start Date: 07/30/22 Status: Ordered ARIPiprazole 5 mg oral tablet 1, tablet, By Mouth, Daily, # 90 tablet, Refills 1, Maintenance, 03/17/23 21:05:00 EDT, Route to Pharmacy Electronically, [facility] #[id number], 178, cm, 03/17/23 11:44:00 EDT, Height, 108.7, kg, 03/17/23 11:44:00 EDT, Dry Weight Start Date: 03/17/23 Status: Ordered Compression Stockings See Instructions, # 2 each, Maintenance, surgical, calf length 20-30 mm Hg, 01/02/22 11:47:00 EDT, Supply, 182.88, cm, 12/31/21 9:11:00 EDT, Height, 104.4, kg, 12/24/21 19:20:00 EDT, Dry Weight Start Date: 01/02/22 Status: Ordered gabapentin 300 mg oral capsule 300 mg, 1, capsule, By Mouth, 3 times a day, # 90 capsule, Refills 0, Tot. Refills 0, Maintenance, 11/03/21 13:44:00 EDT, Route to Pharmacy Electronically, [facility]/pharmacy #[id number], Partial fill upon patient request if the prescription is for a schedule II... Start Date: 11/03/21 Status: Ordered hydrochlorothiazide-lisinopril 12.5 mg-20 mg oral tablet 1 tablet, By Mouth, Daily, para la presion, # 90 tablet, 1 Refills, Maintenance, 01/18/23 10:53:00 EDT, Tablet, [facility] #[id number], Partial fill upon patient request if the prescription is for a schedule II opioid drug., 1 tablet By Mouth Felecia... Start Date: 01/18/23 Status: Ordered hydrocortisone 1% topical cream 1 application, Topically, 2 times a day, for 14 days, apply in a thin film to the affected skin andrub in gently and completely. No refills, # 60 Gm, 0 Refills, Acute 04/12/23 15:01:00 EST, 03/29/2315:01:00 EST, Cream, [facility] #[id number], P... Start Date: 03/29/23 Stop Date: 04/12/23 Status: Ordered loratadine 10 mg oral tablet 10 mg, 1, tablet, By Mouth, Daily, # 30 tablet, Refills 1, Tot. Refills 1, Maintenance, 03/29/23 14:55:00 EST, Route to Pharmacy Electronically, [facility] #[id number], Partial fill upon patientrequest if the prescription is for a schedule II op... Start Date: 03/29/23 Stop Date: 05/28/23 Status: Ordered LORATADINE 10MG TABLETS LORATADINE 10MG TABLETS, See Instructions, # 90 tablet, 0 Refills, Maintenance, TAKE 1 TABLET BY MOUTH DAILY, 04/08/23 16:53:00 EST, 175, cm, 04/01/23 20:22:00 EST, Height, 118, kg, 04/01/23 20:22:00EST, Dry Weight Start Date: 04/08/23 Status: Ordered Melatonin 5 mg oral tablet 1 tablet = 5 mg, By Mouth, Daily at bedtime, PRN for insomnia, # 60 tablet, 0 Refills, Maintenance,01/01/22 12:47:00 EDT, Tablet, Partial fill upon patient request if the prescription is for a schedule II opioid drug. Start Date: 01/01/22 Status: Ordered Narcan 4 mg/0.1 mL nasal spray = 4 mg, Nares, Both, Once, # 2 each, 0 Refills, Soft Stop, 01/18/23 10:46:00 EDT, [facility] #[id number], Partial fill upon patient request if the prescription is for a schedule II opioid drug.,178, cm, 01/18/23 9:57:00 EDT, Height, 110, kg, ... Start Date: 01/18/23 Status: Ordered Nebulizer machine Nebulizer machine, See Instructions, # 1 each, Refills 0, Tot. Refills 0, Maintenance, to use with albuterol inhalation solution. ICD-10: J45.3 asthma mild persistent, 07/30/22 12:35:00 EST, Supply, 182.88, cm, 07/30/22 10:06:00 EST, Height, 106.6,... Start Date: 07/30/22 Status: Ordered Nebulizer supplies, mask and tubing Nebulizer supplies, mask and tubing, See Instructions, # 1 each, Refills 0, Tot. Refills 0, Maintenance, to use with albuterol inhalation solution. ICD-10: J45.3 asthma mild persistent, 07/30/22 12:36:00 EST, Supply, 182.88, cm, 07/30/22 10:06:00 E... Start Date: 07/30/22 Status: Ordered omeprazole 20 mg oral delayed release tablet 1 tablet = 20 mg, By Mouth, Daily, # 90 tablet, 2 Refills, Maintenance, 01/18/23 10:53:00 EDT, CR Tablet, [facility] #[id number], please write all of this patient's medication in Filipino, 178, cm, 01/18/23 9:57:00 EDT, Height, 110, kg, 01/06/23 1... Start Date: 01/18/23 Stop Date: 10/15/23 Status: Ordered SEROquel 100 mg oral tablet 100 mg, 1, tablet, By Mouth, Daily, para dormir, # 90 tablet, Refills 1, Tot. Refills 1, Maintenance, 01/18/23 10:53:00 EDT, Route to Pharmacy Electronically, [facility] #[id number], Partial fill upon patient request if the prescription is for a... Start Date: 01/18/23 Stop Date: 07/17/23 Status: Ordered sertraline 100 mg oral tablet 1 tablet = 100 mg, By Mouth, Daily, para la presion, # 90 tablet, 1 Refills, Maintenance, 09/15/22 17:27:00 EDT, Tablet, [facility] #[id number], to replace 50mg, 182.88, cm, 09/15/22 16:16:00 EDT, Height, 106.6, kg, 07/08/22 8:56:00 EST, Dry Weight Start Date: 09/15/22 Stop Date: 03/14/23 Status: Ordered Vitamin B-12 100 mcg oral tablet 100 mcg, 1, tablet, By Mouth, Daily in AM, # 30 tablet, Refills 0, Tot. Refills 0, Maintenance, 12/31/21 9:24:00 EDT, Route to Pharmacy Electronically, [facility]/pharmacy #[id number], Partial fill upon patient request if the prescription is for a schedule II opio... Start Date: 12/31/21 Status: Ordered Problem List Condition Confirmation Course Effective Dates Status Health St atus Informant Anemia Confirmed Active Anxiety Confirmed Active Asthma Confirmed Active Passage of loose stools Confirmed Active Dizziness Confirmed Active Postprandial epigastric pain Confirmed Active Chronic GERD Confirmed Active Housing situation unstable Confirmed Active Hypertension Confirmed Active Lower back pain Confirmed Active Moderate major depression Confirmed Active Opioid use disorder Confirmed Active LTSS Andree Dhaliwal [facility] [phone] Confirmed Active Prediabetes Confirmed Active Itching of male genitalia Confirmed Active Encounter for screening colonoscopy Confirmed Active Severe obesity (BMI 35.0-39.9) with comorbidity Confirmed Active Social History Social History Type Response Smoking Status Never (less than 100 in lifetime) entered on: 10/27/21 Sex Patient Care team information Care Team Personnel Name: Rob Rubin NP Position: [facility] Associate Professional Member Role: PCP Address: Address: [address] [place] [address] Name: Hali Gage RN Position: S RN Member Role: Primary Care Nurse Name: Oliva Richey RN Position: S RN Member Role: Primary Care Nurse Name: Alex Dolan RN Position: [facility] SN RN Member Role: Primary Care Nurse Name: Erica Alanis RN Position: S RN Member Role: Primary Care Nurse Name: Shantel Freeman RN Position: S RN Member Role: Primary Care Nurse Name: Janelle Browne RN Position: S RN Member Role: Primary Care Nurse Name: Mari Jack RN Position: S RN Member Role: Primary Care Nurse Name: Red Mahmood RN Position: S RN Member Role: Primary Care Nurse Name: Roshni Kenny RN Position: S RN Member Role: Primary Care Nurse Care Team Related Persons Name: NEGRITO MEJIA Address: home [address] [place] [address] [place] [address] Name: TAQUERIA MURILLO Address: home [address] [place] [address] Name: TAQUERIA MURILLO Address: home [address] [place] [address]
--- OUTSIDE RECORDS SUMMARY | 2023-04-23 14:01 | XMS_ITS | Continuity of Care Document ---
Author Name Unknown Organization [facility] Address [address] [place] [address]- Care Team Providers Care Floor Clerk Name Role Phone Scottie PACK, Rob Primary Care Physician [place] [facility] [place] - 10/18/[address] [address] Attending Physician: Not on Staff, Attending MD Referring Physician: Carole Velasquez MD Allergies, Adverse Reactions, Alerts No Known Allergies Immunizations Given and Recorded Vaccine Date Status Refusal Reason tetanus/diphtheria/pertussis, acel(Tdap) 09/18/15 Given Medications albuterol 0.083% inhalation solution 3 mL = 2.5 mg, Inhalation, Every 6 hours, PRN for wheezing, # 60 each, 3 Refills, Maintenance, 07/30/22 12:34:00 EST, Solution, [id number], instructions in Khmer please, 182.88, cm, 07/30/22 10:06:00 EST, Height, [...] 12:34:00 EST, Aerosol, Route to Pharmacy Electronically, [id number], [facility]/pharmacy #[id number], instructions in slovenian please, 18... Start Date: 07/30/22 Status: Ordered ARIPiprazole 5 mg oral tablet 5 mg, 1, tablet, By Mouth, Daily, # 30 tablet, Refills 0, Tot. Refills 0, Maintenance, 11/03/21 13:43:00 EDT, Route to Pharmacy Electronically, [facility]/pharmacy #[id number], Partial fill upon patient request if the prescription is for a schedule II opioid drug.... Start Date: 11/03/21 Status: Ordered Compression Stockings See Instructions, # [...] 11/03/21 13:44:00 EDT, Route to Pharmacy Electronically, [facility]/pharmacy #[id number], Partial fill upon patient request if the prescription is for a schedule II... Start Date: 11/03/21 Status: Ordered hydrochlorothiazide-lisinopril 12.5 mg-20 mg oral tablet 1 tablet, By Mouth, Daily, para la presion, # 90 tablet, 1 Refills, Maintenance, 09/15/22 17:27:00 EDT, Tablet, [facility] #[id number], Partial fill upon patient request if the prescription is for a schedule II opioid drug., 1 tablet By Mouth Felecia... Start Date: 09/15/22 Status: Ordered Melatonin 5 mg oral tablet 1 tablet = 5 mg, By Mouth, Daily at bedtime, PRN for insomnia, # 60 tablet, 0 Refills, Maintenance,01/01/22 12:47:00 EDT, Tablet, Partial fill upon patient request if the prescription is for a schedule II opioid drug. Start Date: 01/01/22 Status: Ordered Nebulizer machine Nebulizer machine, See [...] Refills, Maintenance, 05/27/22 11:13:00 EST, CR Tablet, [facility]/pharmacy #[id number], Partial fill upon patient request if the prescription is for a schedule II opioid drug., 182.88, cm, 04/30/22 14:42:00 EST, H... Start Date: 05/27/22 Stop Date: 08/25/22 Status: Ordered SEROquel 100 mg oral tablet 100 mg, 1, tablet, By Mouth, Daily, para dormir, # 30 tablet, Refills 3, Tot. Refills 3, Maintenance, 09/15/22 17:27:00 EDT, Route to Pharmacy Electronically, [facility] #[id number], Partial fill upon patient request if the prescription is for a... Start Date: 09/15/22 Stop Date: 01/13/23 Status: Ordered sertraline 100 mg oral tablet 1 tablet = 100 mg, By Mouth, Daily, para la presion, # 90 tablet, 1 Refills, Maintenance, 09/15/22 17:27:00 EDT, Tablet, [facility] #[id number], to replace 50mg, 182.88, cm, 09/15/22 16:16:00 EDT, Height, 106.6, kg, 07/08/22 8:56:00 EST, Dry Weight Start Date: 09/15/22 Stop Date: 03/14/23 Status: Ordered Vitamin B-12 100 mcg oral tablet 100 mcg, 1, tablet, By Mouth, Daily in AM, # 30 tablet, Refills 0, Tot. Refills 0, Maintenance, 12/31/21 9:24:00 EDT, Route to Pharmacy Electronically, [facility]/pharmacy #[id number], Partial fill upon patient request [...] Confirmed Active Moderate major depression Confirmed Active Obese class I Confirmed Active Opioid use disorder Confirmed Active LTSS Andree Dhaliwal [facility] [phone] Confirmed Active Prediabetes Confirmed Active Itching of male genitalia Confirmed Active Encounter for screening colonoscopy Confirmed Active Social History Social History Type Response Smoking Status Never (less than 100 in lifetime) entered on: 10/27/21 Sex Patient Care team information Care Team Personnel Name: Rob Rubin NP Position: [facility] Associate Professional Member Role: PCP Address: Address: [address] [place] [address] Name: Hali Gage RN Position: [facility] RN Member Role: Primary Care Nurse Name: Oliva Richey RN Position: S RN Member Role: Primary Care Nurse Name: Alex Dolan RN Position: [facility] SN RN Member Role: Primary Care Nurse Name: Erica Alanis RN Position: S RN Member Role: Primary Care Nurse Name: Shantel Freeman RN Position: S RN Member Role: Primary Care Nurse Name: Janelle Browne RN Position: [facility] RN Supv Member Role: Primary Care Nurse Name: Mari Jack RN Position: S RN Member Role: Primary Care Nurse Name: Roshni Kenny RN Position: S RN Member Role: Primary Care Nurse Care Team Related Persons Name: NEGRITO MEJIA Address: home [address] [place] [address] Name: TAQUERIA MURILLO Address: home [address] [place] [address] Name: TAQUERIA MURILLO Address: home [address] [place] [address]
--- OUTSIDE RECORDS SUMMARY | 2023-04-23 14:01 | XMS_ITS | Continuity of Care Document ---
Author Name Unknown Organization [facility] Address [address] [place] [address]- Care Team Providers Care Radiocommunications Technician Name Role Phone Scottie PACK, Rob Primary Care Physician [place] [facility] [place] Date(s): 02/11/23 - 03/27/[address] [address]- Attending Physician: Not on Staff, Attending MD Allergies, Adverse Reactions, Alerts No Known Allergies Immunizations Given and Recorded Vaccine Date Status Refusal Reason tetanus/diphtheria/pertussis, acel(Tdap) 09/18/15 Given Medications albuterol 0.083% inhalation solution 3 mL = 2.5 mg, Inhalation, Every 6 hours, PRN for wheezing, # 60 each, 3 Refills, Maintenance, 07/30/22 12:34:00 EST, [facility], [id number], instructions in Pashto please, 182.88, cm, 07/30/22 10:06:00 EST, Height, [...] 12:34:00 EST, Aerosol, Route to Pharmacy Electronically, [id number], [facility]/pharmacy #[id number], instructions in wolof please, 18... Start Date: 07/30/22 Status: Ordered ARIPiprazole 5 mg oral tablet 1, tablet, By Mouth, Daily, # 90 tablet, Refills 1, Maintenance, 03/17/23 21:05:00 EDT, Route to Pharmacy Electronically, [facility] #[id number], 178, cm, 03/17/23 11:44:00 EDT, Height, 108.7, [...] 11/03/21 13:44:00 EDT, Route to Pharmacy Electronically, [facility]/pharmacy #[id number], Partial fill upon patient request if the prescription is for a schedule II... Start Date: 11/03/21 Status: Ordered hydrochlorothiazide-lisinopril 12.5 mg-20 mg oral tablet 1 tablet, By Mouth, Daily, para la presion, # 90 tablet, 1 Refills, Maintenance, 01/18/23 10:53:00 EDT, Tablet, [facility] #[id number], Partial fill upon patient request if the prescription is for a schedule II opioid drug., 1 tablet By Mouth Felecia... Start Date: 01/18/23 Status: Ordered Melatonin 5 mg oral tablet [...] 0 Refills, Soft Stop, 01/18/23 10:46:00 EDT, [facility] #[id number], Partial fill upon patient request if the [...] Refills, Maintenance, 01/18/23 10:53:00 EDT, CR Tablet, [facility] #[id number], please write all of this patient's medication in Pashto, 178, cm, 01/18/23 9:57:00 EDT, Height, 110, kg, 01/06/23 1... Start Date: 01/18/23 Stop Date: 10/15/23 Status: Ordered SEROquel 100 mg oral tablet 100 mg, 1, tablet, By Mouth, Daily, para dormir, # 90 tablet, Refills 1, Tot. Refills 1, Maintenance, 01/18/23 10:53:00 EDT, Route to Pharmacy Electronically, [facility] #[id number], Partial fill upon patient request if the prescription is for a... Start Date: 01/18/23 Stop Date: 07/17/23 Status: Ordered sertraline 100 mg oral tablet 1 tablet = 100 mg, By Mouth, Daily, para la presion, # 90 tablet, 1 Refills, Maintenance, 09/15/22 17:27:00 EDT, Tablet, [facility] #[id number], to replace 50mg, 182.88, cm, 09/15/22 16:16:00 EDT, Height, 106.6, kg, 07/08/22 8:56:00 EST, Dry Weight Start Date: 09/15/22 Stop Date: 03/14/23 Status: Ordered Vitamin B-12 100 mcg oral tablet 100 mcg, 1, tablet, By Mouth, Daily in AM, # 30 tablet, Refills 0, Tot. Refills 0, Maintenance, 12/31/21 9:24:00 EDT, Route to Pharmacy Electronically, [facility]/pharmacy #[id number], Partial fill upon patient request [...] Confirmed Active LTSS Andree Dhaliwal [facility] [phone] Confirmed Active Prediabetes Confirmed Active Itching of male genitalia Confirmed Active Encounter for screening colonoscopy Confirmed Active Social History Social History Type Response Smoking Status Never (less than 100 in lifetime) entered on: 10/27/21 Sex Patient Care team information Care Team Personnel Name: Rob Rubin NP Position: [facility] Associate Professional Member Role: PCP Address: Address: [address] [place] [id number] Name: Hali Gage RN Position: S RN Member Role: Primary Care Nurse Name: Oliva Richey RN Position: [facility] RN Member Role: Primary Care Nurse Name: Alex Dolan RN Position: [facility] SN RN Member Role: Primary Care Nurse Name: Erica Alanis RN Position: [facility] RN Member Role: Primary Care Nurse Name: Shantel Freeman RN Position: [facility] RN Member Role: Primary Care Nurse Name: Janelle Browne RN Position: [facility] RN Member Role: Primary Care Nurse Name: Mari Jack RN Position: [facility] RN Member Role: Primary Care Nurse Name: Red Mahmood RN Position: [facility] RN Member Role: Primary Care Nurse Name: Roshni Kenny RN Position: [facility] RN Member Role: Primary Care Nurse Care Team Related Persons Name: NEGRITO MEJIA Address: home [address] [place] [id number] Name: TAQUERIA MURILLO Address: home [address] [place] [address] Name: TAQUERIA MURILLO Address: home [address] [place] [address]
--- OUTSIDE RECORDS SUMMARY | 2023-04-23 14:02 | XMS_ITS | Continuity of Care Document ---
Author Name Unknown Organization [facility] Address [address] [place] [address]- Care Team Providers Care Mirror Inspector Name Role Phone Rob Rubin NP Primary Care Physician [phone] Encounter [facility] [place] Date(s): 02/09/23 - 03/11/[address] [address] Allergies, Adverse Reactions, Alerts No Known Allergies Immunizations Given and Recorded Vaccine Date Status Refusal Reason tetanus/diphtheria/pertussis, acel(Tdap) 09/18/15 Given Medications albuterol 0.083% inhalation solution 3 mL = 2.5 mg, Inhalation, Every 6 hours, PRN for wheezing, # 60 each, 3 Refills, Maintenance, 07/30/22 12:34:00 EST, [facility], [id number], instructions in Portuguese please, 182.88, cm, 07/30/22 10:06:00 EST, Height, [...] 12:34:00 EST, Aerosol, Route to Pharmacy Electronically, [id number], [facility]/pharmacy #[id number], instructions in cuban please, 18... Start Date: 07/30/22 Status: Ordered ARIPiprazole 5 mg oral tablet 5 mg, 1, tablet, By Mouth, Daily, # 90 tablet, Refills 0, Tot. Refills 0, Maintenance, 01/18/23 10:52:00 EDT, Route to Pharmacy Electronically, [facility] #[id number], Partial fill upon patient request if the prescription is for a schedule II opi... Start Date: 01/18/23 Stop Date: 04/18/23 Status: Ordered Compression Stockings See Instructions, # [...] 1 Refills, Maintenance, 01/18/23 10:53:00 EDT, Tablet, [facility] #[id number], Partial fill upon patient request if the [...] 0 Refills, Soft Stop, 01/18/23 10:46:00 EDT, [facility] #[id number], Partial fill upon patient request if the prescription is for a schedule II opioid drug.,178, cm, 01/18/23 9:57:00 EDT, Height, 110, kg, 08/... Start Date: 01/18/23 Status: Ordered Nebulizer machine [...] Refills, Maintenance, 01/18/23 10:53:00 EDT, CR Tablet, [facility] #[id number], please write all of this patient's medication in Portuguese, 178, cm, 01/18/23 9:57:00 EDT, Height, 110, kg, 01/06/23 1... Start Date: 01/18/23 Stop Date: 10/15/23 Status: Ordered SEROquel 100 mg oral tablet 100 mg, 1, tablet, By Mouth, Daily, para dormir, # 90 tablet, Refills 1, Tot. Refills 1, Maintenance, 01/18/23 10:53:00 EDT, Route to Pharmacy Electronically, [facility] #[id number], Partial fill upon patient request if the prescription is for a... Start Date: 01/18/23 Stop Date: 07/17/23 Status: Ordered sertraline 100 mg oral tablet 1 tablet = 100 mg, By Mouth, Daily, para la presion, # 90 tablet, 1 Refills, Maintenance, 09/15/22 17:27:00 EDT, Tablet, [facility] #[id number], to replace 50mg, 182.88, cm, 09/15/22 16:16:00 [...] use disorder Confirmed Active LTSS Andree Dhaliwal [facility] [phone] Confirmed Active Prediabetes Confirmed Active Itching of male genitalia Confirmed Active Encounter for screening colonoscopy Confirmed Active Social History Social History Type Response Smoking Status Never (less than 100 in lifetime) entered on: 10/27/21 Sex Patient Care team information Care Team Personnel Name: Rob Rubin NP Position: [facility] Associate Professional Member Role: PCP Address: Address: [address] [place] [phone]- [place] Name: Hali Gage RN Position: S RN [...] Browne RN Position: [facility] RN Member [...] MEJIA Address: home [address] [place] [id number] Name: TAQUERIA MURILLO Address: home [address] [place] [address] Name: TAQUERIA MURILLO Address: home [address] [place] [address]
--- OUTSIDE RECORDS SUMMARY | 2023-04-23 14:02 | XMS_ITS | Continuity of Care Document ---
Author Name Unknown Organization [facility] Address [address] [place] [address]- Care Team Providers Care Sign Painter Name Role Phone Scottie PACK, Rob Primary Care Physician Encounter [facility] [place] Date(s): 01/13/23 - 02/12/[address] [address] Allergies, Adverse Reactions, Alerts No Known Allergies Immunizations Given and Recorded Vaccine Date Status Refusal Reason tetanus/diphtheria/pertussis, acel(Tdap) 09/18/15 Given Medications albuterol 0.083% inhalation solution 3 mL = 2.5 mg, Inhalation, Every 6 hours, PRN for wheezing, # 60 each, 3 Refills, Maintenance, 07/30/22 12:34:00 EST, Solution, [id number], instructions in Setswana please, 182.88, cm, 07/30/22 10:06:00 EST, Height, [...] 12:34:00 EST, Aerosol, Route to Pharmacy Electronically, [id number], [facility]/pharmacy #[id number], instructions in luxembourgish please, 18... Start Date: 07/30/22 Status: Ordered ARIPiprazole 5 mg oral tablet 5 mg, 1, tablet, By Mouth, Daily, # 90 tablet, Refills 0, Tot. Refills 0, Maintenance, 01/18/23 10:52:00 EDT, Route to Pharmacy Electronically, [facility] #[id number], Partial fill upon patient request if the [...] 11/03/21 13:44:00 EDT, Route to Pharmacy Electronically, [facility]/pharmacy #[id number], Partial fill upon patient request if the prescription is for a schedule II... Start Date: 11/03/21 Status: Ordered hydrochlorothiazide-lisinopril 12.5 mg-20 mg oral tablet 1 tablet, By Mouth, Daily, para la presion, # 90 tablet, 1 Refills, Maintenance, 01/18/23 10:53:00 EDT, Tablet, [facility] #[id number], Partial fill upon patient request if the [...] 0 Refills, Soft Stop, 01/18/23 10:46:00 EDT, [facility] #[id number], Partial fill upon patient request if the [...] Refills, Maintenance, 01/18/23 10:53:00 EDT, CR Tablet, [facility] #[id number], please write all of this patient's medication in Setswana, 178, cm, 01/18/23 9:57:00 EDT, Height, 110, kg, 01/06/23 1... Start Date: 01/18/23 Stop Date: 10/15/23 Status: Ordered SEROquel 100 mg oral tablet 100 mg, 1, tablet, By Mouth, Daily, para dormir, # 90 tablet, Refills 1, Tot. Refills 1, Maintenance, 01/18/23 10:53:00 EDT, Route to Pharmacy Electronically, [facility] #[id number], Partial fill upon patient request if the prescription is for a... Start Date: 01/18/23 Stop Date: 07/17/23 Status: Ordered sertraline 100 mg oral tablet 1 tablet = 100 mg, By Mouth, Daily, para la presion, # 90 tablet, 1 Refills, Maintenance, 09/15/22 17:27:00 EDT, Tablet, [facility] #[id number], to replace 50mg, 182.88, cm, 09/15/22 16:16:00 EDT, Height, 106.6, kg, 07/08/22 8:56:00 EST, Dry Weight Start Date: 09/15/22 Stop Date: 03/14/23 Status: Ordered Vitamin B-12 100 mcg oral tablet 100 mcg, 1, tablet, By Mouth, Daily in AM, # 30 tablet, Refills 0, Tot. Refills 0, Maintenance, 12/31/21 9:24:00 EDT, Route to Pharmacy Electronically, [facility]/pharmacy #[id number], Partial fill upon patient [...] use disorder Confirmed Active LTSS Andree Dhaliwal [facility] [phone] Confirmed Active Prediabetes Confirmed Active Itching of male genitalia Confirmed Active Encounter for screening colonoscopy Confirmed Active Social History Social History Type Response Smoking Status Never (less than 100 in lifetime) entered on: 10/27/21 Sex Patient Care team information Care Team Personnel Name: Rob Rubin NP Position: [facility] Associate Professional Member Role: PCP Address: Address: [address] [place] [address]- Name: Oliva Richey RN Position: S RN Member Role: Primary Care Nurse Name: Alex Dolan RN Position: [facility] RN Member Role: Primary Care Nurse Name: Erica Alanis RN Position: [facility] RN Member Role: Primary Care Nurse Name: Shantel Freeman RN Position: [facility] RN Member Role: Primary Care Nurse Name: Janelle Browne RN Position: [facility] RN Member Role: Primary Care Nurse Name: Mari Jack RN Position: [facility] RN Member Role: Primary Care Nurse Name: Red Mahmood RN Position: [facility] RN Member Role: Primary Care Nurse Name: Roshni Kenny RN Position: [facility] RN Member Role: Primary Care Nurse Care Team Related Persons Name: NEGRITO MEJIA Address: home [address] [place] [address] Name: TAQUERIA MURILLO Address: home [address] [place] [address] Name: TAQUERIA MURILLO Address: home [address] [place] [address]
--- OUTSIDE RECORDS SUMMARY | 2023-04-23 14:02 | XMS_ITS | Continuity of Care Document ---
Author Name Unknown Organization [facility] Address [address] [place] [address]- Care Team Providers Care Cell Phone Repair Technician Name Role Phone Rob Rubin NP Primary Care Physician Encounter [facility] [place] Date(s): 11/19/22 - 02/03/23 [facility] [address] [place] [address]- Attending Physician: Clemente Gallegos MD Admitting Physician: Clemente Gallegos MD Referring Physician: Rob Rubin NP Allergies, Adverse Reactions, Alerts No Known Allergies Immunizations Given and Recorded Vaccine Date Status Refusal Reason tetanus/diphtheria/pertussis, acel(Tdap) 09/18/15 Given Medications albuterol 0.083% inhalation solution 3 mL = 2.5 mg, Inhalation, Every 6 hours, PRN for wheezing, # 60 each, 3 Refills, Maintenance, 07/30/22 12:34:00 EST, [facility], [id number], instructions in Nigerian please, 182.88, cm, 07/30/22 10:06:00 EST, Height, [...] 12:34:00 EST, Aerosol, Route to Pharmacy Electronically, [id number], [facility]/pharmacy #[id number], instructions in maori please, 18... Start Date: 07/30/22 Status: Ordered ARIPiprazole 5 mg oral tablet 5 mg, 1, tablet, By Mouth, Daily, # 90 tablet, Refills 0, Tot. Refills 0, Maintenance, 01/18/23 10:52:00 EDT, Route to Pharmacy Electronically, [facility] #[id number], Partial fill upon patient request if the [...] 1 Refills, Maintenance, 01/18/23 10:53:00 EDT, Tablet, [facility] #[id number], Partial fill upon patient request if the [...] 0 Refills, Soft Stop, 01/18/23 10:46:00 EDT, [facility] #[id number], Partial fill upon patient request if the prescription is for a schedule II opioid drug.,178, cm, 01/18/23 9:57:00 EDT, Height, 110, kg, 08... Start Date: 01/18/23 Status: Ordered Nebulizer machine [...] Refills, Maintenance, 01/18/23 10:53:00 EDT, CR Tablet, [facility] #[id number], please write all of this patient's medication in Nigerian, 178, cm, 01/18/23 9:57:00 EDT, Height, 110, kg, 01/06/23 1... Start Date: 01/18/23 Stop Date: 10/15/23 Status: Ordered SEROquel 100 mg oral tablet 100 mg, 1, tablet, By Mouth, Daily, para dormir, # 90 tablet, Refills 1, Tot. Refills 1, Maintenance, 01/18/23 10:53:00 EDT, Route to Pharmacy Electronically, [facility] #[id number], Partial fill upon patient request if the prescription is for a... Start Date: 01/18/23 Stop Date: 07/17/23 Status: Ordered sertraline 100 mg oral tablet 1 tablet = 100 mg, By Mouth, Daily, para la presion, # 90 tablet, 1 Refills, Maintenance, 09/15/22 17:27:00 EDT, Tablet, [facility] #[id number], to replace 50mg, 182.88, cm, 09/15/22 16:16:00 [...] use disorder Confirmed Active LTSS Andree Dhaliwal [facility] [phone] Confirmed Active Prediabetes Confirmed Active Itching of male genitalia Confirmed Active Encounter for screening colonoscopy Confirmed Active Social History Social History Type Response Smoking Status Never (less than 100 in lifetime) entered on: 10/27/21 Sex Patient Care team information Care Team Personnel Name: Rob Rubin NP Position: [facility] Associate Professional Member Role: PCP Address: Address: [address] [place] [address] Name: Hali Gage RN Position: S RN Member Role: Primary Care Nurse Name: Oliva Richey RN Position: S RN Member Role: Primary Care Nurse Name: Alex Dolan RN Position: [facility] SN RN Member Role: Primary Care Nurse Name: Erica Alanis RN Position: [facility] RN Member Role: Primary Care Nurse Name: Shantel Freeman RN Position: [facility] RN Member Role: Primary Care Nurse Name: Janelle Browne RN Position: [facility] RN Member Role: Primary Care Nurse Name: Mari Jack RN Position: [facility] RN Member Role: Primary Care Nurse Name: Red Mahmood RN Position: [facility] RN Member Role: Primary Care Nurse Name: Roshni Kenny RN Position: [facility] RN Member Role: Primary Care Nurse Care Team Related Persons Name: NEGRITO MEJIA Address: home [address] [place] [id number] Name: TAQUERIA MURILLO Address: home [address] [place] [address] Name: TAQUERIA MURILLO Address: home [address] [place] [address]
--- OUTSIDE RECORDS SUMMARY | 2023-04-23 14:02 | XMS_ITS | Continuity of Care Document ---
Author Name Unknown Organization [facility] Address [address] [place] [address]- Care Team Providers Care Sales And Leasing Consultant Name Role Phone Scottie PACK, Rob Primary Care Physician [phone] [place] [facility] [id number] Date(s): 08/11/22 - 09/20/[address] [address] Attending Physician: Not on Staff, Attending MD Referring Physician: Carole Velasquez MD Allergies, Adverse Reactions, Alerts No Known Allergies Immunizations Given and Recorded Vaccine Date Status Refusal Reason tetanus/diphtheria/pertussis, acel(Tdap) 09/18/15 Given Medications albuterol 0.083% inhalation solution 3 mL = 2.5 mg, Inhalation, Every 6 hours, PRN for wheezing, # 60 each, 3 Refills, Maintenance, 07/30/22 12:34:00 EST, [facility], [id number], instructions in Tamazight please, 182.88, cm, 07/30/22 10:06:00 EST, Height, [...] 12:34:00 EST, Aerosol, Route to Pharmacy Electronically, [id number], [facility]/pharmacy #[id number], instructions in pitcairn islander please, 18... Start Date: 07/30/22 Status: Ordered ARIPiprazole 5 mg oral tablet 5 mg, 1, tablet, By Mouth, Daily, # 30 tablet, Refills 0, Tot. Refills 0, Maintenance, 11/03/21 13:43:00 EDT, Route to Pharmacy Electronically, [facility]/pharmacy #[id number], Partial fill upon patient request if [...] Route to Pharmacy Electronically, [facility]/pharmacy #[id number], Partial fill upon patient request if the prescription is for a schedule II... Start Date: 11/03/21 Status: Ordered hydrochlorothiazide-lisinopril 12.5 mg-20 mg oral tablet 1 tablet, By Mouth, Daily, para la presion, # 90 tablet, 1 Refills, Maintenance, 09/15/22 17:27:00 EDT, Tablet, [facility] #[id number], Partial fill upon patient request if the [...] Refills, Maintenance, 05/27/22 11:13:00 EST, CR Tablet, [facility]/pharmacy #[id number], Partial fill upon patient request if the prescription is for a schedule II opioid drug., 182.88, cm, 04/30/22 14:42:00 EST, H... Start Date: 05/27/22 Stop Date: 08/25/22 Status: Ordered SEROquel 100 mg oral tablet 100 mg, 1, tablet, By Mouth, Daily, para dormir, # 30 tablet, Refills 3, Tot. Refills 3, Maintenance, 09/15/22 17:27:00 EDT, Route to Pharmacy Electronically, [facility] #[id number], Partial fill upon patient request if the prescription is for a... Start Date: 09/15/22 Stop Date: 01/13/23 Status: Ordered sertraline 100 mg oral tablet 1 tablet = 100 mg, By Mouth, Daily, para la presion, # 90 tablet, 1 Refills, Maintenance, 09/15/22 17:27:00 EDT, Tablet, [facility] #[id number], to replace 50mg, 182.88, cm, 09/15/22 16:16:00 EDT, Height, 106.6, kg, 07/08/22 8:56:00 EST, Dry Weight Start Date: 09/15/22 Stop Date: 03/14/23 Status: Ordered Vitamin B-12 100 mcg oral tablet 100 mcg, 1, tablet, By Mouth, Daily in AM, # 30 tablet, Refills 0, Tot. Refills 0, Maintenance, 12/31/21 9:24:00 EDT, Route to Pharmacy Electronically, [facility]/pharmacy #[id number], Partial fill upon patient request if [...] Confirmed Active Obese class I Confirmed Active LTSS Andree Dhaliwal [facility] [phone] Confirmed Active Prediabetes Confirmed Active Itching of male genitalia Confirmed Active Encounter for screening colonoscopy Confirmed Active Social History Social History Type Response Smoking Status Never (less than 100 in lifetime) entered on: 10/27/21 Sex Patient Care team information Care Team Personnel Name: Rob Rubin NP Position: [facility] Associate Professional Member Role: PCP Address: Address: [address] [place] [address] Name: Hali Gage RN Position: [facility] RN Member Role: Primary Care Nurse Name: Oliva Richey RN Position: [facility] RN Member Role: Primary Care Nurse Name: Alex Dolan RN Position: [facility] SN RN Member Role: Primary Care Nurse Name: Erica Alanis RN Position: S RN Member Role: Primary Care Nurse Name: Shantel Freeman RN Position: S RN Member Role: Primary Care Nurse Name: Janelle Browne RN Position: [facility] RN Supv Member Role: Primary Care Nurse Name: Mari Jack RN Position: S RN Member Role: Primary Care Nurse Name: Roshni Kenny RN Position: [facility] RN Member Role: Primary Care Nurse Care Team Related Persons Name: NEGRITO MEJIA Address: home [address] [place] [address] Name: TAQUERIA MURILLO Address: home [address] [facility] [place] [address] Name: TAQUERIA MURILLO Address: home [address] [facility] [place] [address]
--- OUTSIDE RECORDS SUMMARY | 2023-04-23 14:03 | XMS_ITS | Continuity of Care Document ---
Author Name Unknown Organization [facility] Address [address] [place] [address]- Care Team Providers Care Nursery Helper Name Role Phone Scottie PACK, Rob Primary Care Physician [place] [facility] [place] - 10/11/[address] [address]- Allergies, Adverse Reactions, Alerts No Known Allergies Immunizations Given and Recorded Vaccine Date Status Refusal Reason tetanus/diphtheria/pertussis, acel(Tdap) 09/18/15 Given Medications albuterol 0.083% inhalation solution 3 mL = 2.5 mg, Inhalation, Every 6 hours, PRN for wheezing, # 60 each, 3 Refills, Maintenance, 07/30/22 12:34:00 EST, [facility], [id number], instructions in Uzbek please, 182.88, cm, 07/30/22 10:06:00 EST, Height, [...] 12:34:00 EST, Aerosol, Route to Pharmacy Electronically, [id number], [facility]/pharmacy #233, instructions in georgian please, 18... Start Date: 07/30/22 Status: Ordered ARIPiprazole 5 mg oral tablet 5 mg, 1, tablet, By Mouth, Daily, # 30 tablet, Refills 0, Tot. Refills 0, Maintenance, 11/03/21 13:43:00 EDT, Route to Pharmacy Electronically, [facility]/pharmacy #[id number], Partial fill upon patient request if [...] EDT, Route to Pharmacy Electronically, [facility]/pharmacy #[id number], Partial fill upon patient request if the prescription is for a schedule II... Start Date: 11/03/21 Status: Ordered hydrochlorothiazide-lisinopril 12.5 mg-20 mg oral tablet 1 tablet, By Mouth, Daily, para la presion, # 90 tablet, 1 Refills, Maintenance, 09/15/22 17:27:00 EDT, Tablet, [facility] #[id number], Partial fill upon patient request if the [...] 05/27/22 11:13:00 EST, CR Tablet, [facility]/pharmacy #[id number], Partial fill upon patient request if the prescription is for a schedule II opioid drug., 182.88, cm, 04/30/22 14:42:00 EST, H... Start Date: 05/27/22 Stop Date: 08/25/22 Status: Ordered SEROquel 100 mg oral tablet 100 mg, 1, tablet, By Mouth, Daily, para dormir, # 30 tablet, Refills 3, Tot. Refills 3, Maintenance, 09/15/22 17:27:00 EDT, Route to Pharmacy Electronically, [facility] #[id number], Partial fill upon patient request if the prescription is for a... Start Date: 09/15/22 Stop Date: 01/13/23 Status: Ordered sertraline 100 mg oral tablet 1 tablet = 100 mg, By Mouth, Daily, para la presion, # 90 tablet, 1 Refills, Maintenance, 09/15/22 17:27:00 EDT, Tablet, [facility] #[id number], to replace 50mg, 182.88, cm, 09/15/22 16:16:00 EDT, Height, 106.6, kg, 07/08/22 8:56:00 EST, Dry Weight Start Date: 09/15/22 Stop Date: 03/14/23 Status: Ordered Vitamin B-12 100 mcg oral tablet 100 mcg, 1, tablet, By Mouth, Daily in AM, # 30 tablet, Refills 0, Tot. Refills 0, Maintenance, 12/31/21 9:24:00 EDT, Route to Pharmacy Electronically, [facility]/pharmacy #[id number], Partial fill upon patient request if [...] use disorder Confirmed Active LTSS Andree Dhaliwal [facility] [phone] Confirmed Active Prediabetes Confirmed Active Itching of male genitalia Confirmed Active Encounter for screening colonoscopy Confirmed Active Social History Social History Type Response Smoking Status Never (less than 100 in lifetime) entered on: 10/27/21 Sex Patient Care team information Care Team Personnel Name: Rob Rubin NP Position: [facility] Associate Professional Member Role: PCP Address: Address: [address] [place] [address] Name: Hali Gage RN Position: [facility] RN Member Role: Primary Care Nurse Name: Oliva Richey RN Position: [facility] RN Member Role: Primary Care Nurse Name: Alex Dolan RN Position: [facility] SN RN Member Role: Primary Care Nurse Name: Erica Alanis RN Position: S RN Member Role: Primary Care Nurse Name: Shantel Freeman RN Position: S RN Member Role: Primary Care Nurse Name: Janelle Browne RN Position: [facility] RN Supv Member Role: Primary Care Nurse Name: Mari Jack RN Position: S RN Member Role: Primary Care Nurse Name: Roshni Kenny RN Position: [facility] RN Member Role: Primary Care Nurse Care Team Related Persons Name: NEGRITO MEJIA Address: home [address] [place] [address] Name: TAQUERIA MURILLO Address: home [address] [facility] [place] [address] Name: TAQUERIA MURILLO Address: home [address] [facility] [address]
--- OUTSIDE RECORDS SUMMARY | 2023-04-23 14:03 | XMS_ITS | Continuity of Care Document ---
Author Name Unknown Organization [facility] Address [address] [place] [address]- Care Team Providers Care Feed Mill Tender Name Role Phone Scottie PACK, Rob Primary Care Physician Encounter [facility] [place] Date(s): 01/08/23 - 02/11/[address] [address] Attending Physician: Not on Staff, Attending MD Allergies, Adverse Reactions, Alerts No Known Allergies Immunizations Given and Recorded Vaccine Date Status Refusal Reason tetanus/diphtheria/pertussis, acel(Tdap) 09/18/15 Given Medications albuterol 0.083% inhalation solution 3 mL = 2.5 mg, Inhalation, Every 6 hours, PRN for wheezing, # 60 each, 3 Refills, Maintenance, 07/30/22 12:34:00 EST, [facility], [id number], instructions in Macedonian please, 182.88, cm, 07/30/22 10:06:00 EST, Height, [...] 12:34:00 EST, Aerosol, Route to Pharmacy Electronically, [id number], [facility] #2337, instructions in urdu please, 18... Start Date: 07/30/22 Status: Ordered ARIPiprazole 5 mg oral tablet 5 mg, 1, tablet, By Mouth, Daily, # 90 tablet, Refills 0, Tot. Refills 0, Maintenance, 01/18/23 10:52:00 EDT, Route to Pharmacy Electronically, [facility] #[id number], Partial fill upon patient request if the [...] 13:44:00 EDT, Route to Pharmacy Electronically, [facility] #[id number], Partial fill upon patient request if the prescription is for a schedule II... Start Date: 11/03/21 Status: Ordered hydrochlorothiazide-lisinopril 12.5 mg-20 mg oral tablet 1 tablet, By Mouth, Daily, para la presion, # 90 tablet, 1 Refills, Maintenance, 01/18/23 10:53:00 EDT, Tablet, [facility] #[id number], Partial fill upon patient request if the [...] 0 Refills, Soft Stop, 01/18/23 10:46:00 EDT, [facility] #[id number], Partial fill upon patient request if the [...] Refills, Maintenance, 01/18/23 10:53:00 EDT, CR Tablet, [facility] #[id number], please write all of this patient's medication in Macedonian, 178, cm, 01/18/23 9:57:00 EDT, Height, 110, kg, 01/06/23 1... Start Date: 01/18/23 Stop Date: 10/15/23 Status: Ordered SEROquel 100 mg oral tablet 100 mg, 1, tablet, By Mouth, Daily, para dormir, # 90 tablet, Refills 1, Tot. Refills 1, Maintenance, 01/18/23 10:53:00 EDT, Route to Pharmacy Electronically, [facility] #[id number], Partial fill upon patient request if the prescription is for a... Start Date: 01/18/23 Stop Date: 07/17/23 Status: Ordered sertraline 100 mg oral tablet 1 tablet = 100 mg, By Mouth, Daily, para la presion, # 90 tablet, 1 Refills, Maintenance, 09/15/22 17:27:00 EDT, Tablet, [facility] #[id number], to replace 50mg, 182.88, cm, 09/15/22 16:16:00 EDT, Height, 106.6, kg, 07/08/22 8:56:00 EST, Dry Weight Start Date: 09/15/22 Stop Date: 03/14/23 Status: Ordered Vitamin B-12 100 mcg oral tablet 100 mcg, 1, tablet, By Mouth, Daily in AM, # 30 tablet, Refills 0, Tot. Refills 0, Maintenance, 12/31/21 9:24:00 EDT, Route to Pharmacy Electronically, [facility] #[id number], Partial fill upon patient request [...] Confirmed Active LTSS Andree Dhaliwal [facility] [phone] Confirmed Active Prediabetes Confirmed Active Itching of male genitalia Confirmed Active Encounter for screening colonoscopy Confirmed Active Social History Social History Type Response Smoking Status Never (less than 100 in lifetime) entered on: 10/27/21 Sex Patient Care team information Care Team Personnel Name: Rob Rubin NP Position: [facility] Associate Professional Member Role: PCP Address: Address: [address] [place] [address]- Name: Oliva Richey RN Position: [facility] RN Member Role: Primary Care Nurse Name: Alex Dolan RN Position: [facility] SN RN Member Role: Primary Care Nurse Name: Erica Alanis RN Position: [facility] RN Member Role: Primary Care Nurse Name: Shantel Freeman RN Position: [facility] RN Member Role: Primary Care Nurse Name: Janelle Browne RN Position: [facility] RN Member Role: Primary Care Nurse Name: Mari Jack RN Position: [facility] RN Member Role: Primary Care Nurse Name: Red Mahmood RN Position: [facility] RN Member Role: Primary Care Nurse Name: Roshni Kenny RN Position: [facility] RN Member Role: Primary Care Nurse Care Team Related Persons Name: NEGRITO MEJIA Address: home [address] [place] [address] Name: TAQUERIA MURILLO Address: home [address] [place] [address] Name: TAQUERIA MURILLO Address: home [address] [place] [address]
--- OUTSIDE RECORDS SUMMARY | 2023-04-23 14:03 | XMS_ITS | Continuity of Care Document ---
Author Name Unknown Organization [facility] Address [address] [place] [id number]- Care Team Providers Care Marketing Strategy Manager Name Role Phone Rob Rubin NP Primary Care Physician Encounter [facility] [id number] Date(s): 07/05/22 - 08/04/22 [facility] [address] [place] [id number] Attending Physician: Edin Choudhury Admitting Physician: AdmtrEdin Referring Physician: Admtr, Ar8 Allergies, Adverse Reactions, Alerts No Known Allergies Immunizations Given and Recorded Vaccine Date Status Refusal Reason tetanus/diphtheria/pertussis, acel(Tdap) 09/18/15 Given Medications albuterol 0.083% inhalation solution 3 mL = 2.5 mg, Inhalation, Every 6 hours, PRN for wheezing, # 60 each, 3 Refills, Maintenance, 07/30/22 12:34:00 EST, Solution, [id number], instructions in Mozambican please, 182.88, cm, 07/30/22 10:06:00 EST, Height, [...] 12:34:00 EST, Aerosol, Route to Pharmacy Electronically, [id number], [facility] #[id number], instructions in guinean please, 18... Start Date: 07/30/22 Status: Ordered ARIPiprazole 5 mg oral tablet 5 mg, 1, tablet, By Mouth, Daily, # 30 tablet, Refills 0, Tot. Refills 0, Maintenance, 11/03/21 13:43:00 EDT, Route to Pharmacy Electronically, [facility]/pharmacy #[id number], Partial fill upon patient request if the prescription is for a schedule II opioid drug.... Start Date: 11/03/21 Status: Ordered Compression Stockings See Instructions, # 2 each, Maintenance, surgical, calf length 20-30 mm Hg, 01/02/22 11:47:00 EDT, Supply, 182.88, cm, 12/31/21 9:11:00 EDT, Height, 104.4, kg, 12/24/21 19:20:00 EDT, Dry Weight Start Date: 01/02/22 Status: Ordered cyclobenzaprine 10 mg oral tablet 10 mg, 1, tablet, By Mouth, Daily at bedtime, do not use for longer than 2 weeks, # 14 tablet, Refills 0, Tot. Refills 0, Acute 08/15/22 12:40:00 EDT, 07/30/22 12:33:00 EST, Route to Pharmacy Electronically, [facility] #[id number], instructions in Mozambican... Start Date: 07/30/22 Stop Date: 08/15/22 Status: Ordered gabapentin 300 mg oral capsule 300 mg, 1, capsule, By Mouth, 3 times a day, # 90 capsule, Refills 0, Tot. Refills 0, Maintenance, 11/03/21 13:44:00 EDT, Route to Pharmacy Electronically, [facility]acy #[id number], Partial fill upon patient request if the prescription is for a schedule II... Start Date: 11/03/21 Status: Ordered ibuprofen 400 mg oral tablet 400 mg, 1, tablet, By Mouth, Every 6 hours, PRN, # 60 tablet, Refills 0, Tot. Refills 0, Acute 09/20/22 12:39:00 EDT, for pain, 07/30/22 12:33:00 EST, Route to Pharmacy Electronically, [facility] #[id number], instructions in Mozambican please, 182.88, cm, 03... Start Date: 07/30/22 Stop Date: 09/20/22 Status: Ordered ketotifen 0.025% ophthalmic solution 1 drops, Eyes, Both, Every 12 hours, PRN Other, for 30 days, # 7.5 mL, 0 Refills, Acute 08/29/22 11:30:00 EDT, 07/30/22 11:30:00 EST, Solution, [facility] #[id number], Partial fill upon patient request if the prescription is for a schedule II opioid drug.... Start Date: 07/30/22 Stop Date: 08/29/22 Status: Ordered lisinopril 20 mg oral tablet 20 mg, 1, tablet, By Mouth, Daily, # 90 tablet, Refills 1, Tot. Refills 1, Maintenance, 05/27/22 11:13:00 EST, Route to Pharmacy Electronically, [facility] #[id number], Partial fill upon patient request if the prescription is for a schedule II opioid drug... Start Date: 05/27/22 Stop Date: 11/23/22 Status: Ordered Melatonin 5 mg oral tablet 1 tablet = 5 mg, By Mouth, Daily at bedtime, PRN for insomnia, # 60 tablet, 0 Refills, Maintenance,01/01/22 12:47:00 EDT, Tablet, Partial fill upon patient request if the prescription is for a schedule II opioid drug. Start Date: 01/01/22 Status: Ordered Metamucil 3.4 gm/5.2 gm oral powder for reconstitution = 1.7 Gm, By Mouth, 3 times a day, PRN as needed for constipation, fiber supplement, dissolve in 8 oz of fluid, # 283 Gm, 3 Refills, Acute 09/20/22 12:40:00 EDT, 07/30/22 12:34:00 EST, REC Powder, [facility] #[id number], instructions in Mozambican please,... Start Date: 07/30/22 Stop Date: 09/20/22 Status: Ordered MiraLax oral powder for reconstitution = 17 Gm, By Mouth, Daily, PRN Constipation, dissolve in 8 oz water before taking, # 255 Gm, 3 Refills, Acute 09/20/22 12:38:00 EDT, 07/30/22 12:34:00 EST, REC Powder, [facility] #[id number], instructionsin Mozambican please, 17 Gm By Mouth Daily,PRN:Constip... Start Date: 07/30/22 Stop Date: 09/20/22 Status: Ordered Nebulizer machine Nebulizer machine, See [...] Refills, Maintenance, 05/27/22 11:13:00 EST, CR Tablet, [facility] #[id number], Partial fill upon patient request if the prescription is for a schedule II opioid drug., 182.88, cm, 04/30/22 14:42:00 EST, H... Start Date: 05/27/22 Stop Date: 08/25/22 Status: Ordered Senna 8.6 mg oral tablet 17.2 mg, 2, tablet, By Mouth, Daily at bedtime, PRN, # 100 tablet, Refills 1, Tot. Refills 1, Acute, for constipation, 09/20/22 12:40:00 EDT, 07/30/22 12:34:00 EST, Route to Pharmacy Electronically, [facility] #[id number] Tablet, instructions in Mozambican p... Start Date: 07/30/22 Stop Date: 09/20/22 Status: Ordered SEROquel 50 mg oral tablet 1 tablet = 50 mg, By Mouth, Daily, use at bedtime to help with sleep stop taking trazodone, # 30 tablet, 2 Refills, Maintenance, 07/30/22 13:05:00 EST, Tablet, [facility] #[id number], instructions in guinean please, 182.88, cm, 07/30/22 10:06:00 EST, H... Start Date: 07/30/22 Stop Date: 10/28/22 Status: Ordered sertraline 100 mg oral tablet 1 tablet = 100 mg, By Mouth, Daily, # 90 tablet, 0 Refills, Maintenance, 04/30/22 15:10:00 EST, Tablet, [facility] #[id number], to replace 50mg, 182.88, cm, 04/30/22 14:42:00 EST, Height, 104.4, kg, 12/24/21 19:20:00 EDT, Dry Weight Start Date: 04/30/22 Stop Date: 07/29/22 Status: Ordered Vitamin B-12 100 mcg oral tablet 100 mcg, 1, tablet, By Mouth, Daily in AM, # 30 tablet, Refills 0, Tot. Refills 0, Maintenance, 12/31/21 9:24:00 EDT, Route to Pharmacy Electronically, [facility] #[id number], Partial fill upon patient request if the prescription is for a schedule II opio... Start Date: 12/31/21 Status: Ordered zinc oxide 20% topical paste 1 application, Topically, 2 times a day, apply thin film to itchy areas on scrotum twice a day for 2 weeks, if no improvement please call for follow up, # 170 Gm, 1 Refills, Acute 08/21/22 13:07:00 EDT, 07/30/22 13:06:00 EST, Paste, [id number] 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 Active Prediabetes Confirmed Active Itching of male genitalia Confirmed Active Encounter for screening colonoscopy Confirmed Active Social History Social History Type Response Smoking Status Never (less than 100 in lifetime) entered on: 10/27/21 Sex Patient Care team information Care Team Personnel Name: Rob Rubin NP Position: [facility] Associate Professional Member Role: PCP Address: Address: [address] [place] [address] Name: Hali Gage RN Position: [facility] RN Member Role: Primary Care Nurse Name: Oliva Richey RN Position: [facility] RN Member Role: Primary Care Nurse Name: Alex Dolan RN Position: [facility] SN RN Member Role: Primary Care Nurse Name: Erica Alanis RN Position: [facility] RN Member Role: Primary Care Nurse Name: Shantel Freeman RN Position: [facility] RN Member Role: Primary Care Nurse Name: Janelle Browne RN Position: [facility] RN Supv Member Role: Primary Care Nurse Name: Mari Jack RN Position: [facility] RN Member Role: Primary Care Nurse Name: Shazia Jorgensen RN Position: [facility] RN Member Role: Primary Care Nurse Name: Roshni Kenny RN Position: [facility] RN Member Role: Primary Care Nurse Care Team Related Persons Name: NGERITO MEJIA Address: [address] [place] [id number] Name: TAQUERIA UMRILLO Address: home [address] [place] [address] Name: TAQUERIA MURILLO Address: home [address] [place] [address]
--- OUTSIDE RECORDS SUMMARY | 2023-04-23 14:03 | XMS_ITS | Continuity of Care Document ---
Author Name Unknown Organization [facility] Address [address] [place] [address]- Care Team Providers Care Field Radio Technician Name Role Phone Scottie PACK, Rob Primary Care Physician Encounter [facility] [place] Date(s): 09/11/22 - 10/11/[address] [address]- Allergies, Adverse Reactions, Alerts No Known Allergies Immunizations Given and Recorded Vaccine Date Status Refusal Reason tetanus/diphtheria/pertussis, acel(Tdap) 09/18/15 Given Medications albuterol 0.083% inhalation solution 3 mL = 2.5 mg, Inhalation, Every 6 hours, PRN for wheezing, # 60 each, 3 Refills, Maintenance, 07/30/22 12:34:00 EST, Solution, [id number], instructions in Polish please, 182.88, cm, 07/30/22 10:06:00 EST, Height, [...] 12:34:00 EST, Aerosol, Route to Pharmacy Electronically, [id number], [facility]/pharmacy #[id number], instructions in [place] please, 18... Start Date: 07/30/22 Status: Ordered ARIPiprazole 5 mg oral tablet 5 mg, 1, tablet, By Mouth, Daily, # 30 tablet, Refills 0, Tot. Refills 0, Maintenance, 11/03/21 13:43:00 EDT, Route to Pharmacy Electronically, [facility]/pharmacy #[id number], Partial fill upon patient request [...] EDT, Route to Pharmacy Electronically, [facility]/pharmacy #[id number], Partial fill upon patient request if the prescription is for a schedule II... Start Date: 11/03/21 Status: Ordered hydrochlorothiazide-lisinopril 12.5 mg-20 mg oral tablet 1 tablet, By Mouth, Daily, para la presion, # 90 tablet, 1 Refills, Maintenance, 09/15/22 17:27:00 EDT, Tablet, [facility] #[id number], Partial fill upon patient request if the [...] Refills, Maintenance, 05/27/22 11:13:00 EST, CR Tablet, [facility]/pharmacy #[id number], Partial fill upon patient request if the prescription is for a schedule II opioid drug., 182.88, cm, 04/30/22 14:42:00 EST, H... Start Date: 05/27/22 Stop Date: 08/25/22 Status: Ordered SEROquel 100 mg oral tablet 100 mg, 1, tablet, By Mouth, Daily, para dormir, # 30 tablet, Refills 3, Tot. Refills 3, Maintenance, 09/15/22 17:27:00 EDT, Route to Pharmacy Electronically, [facility] #[id number], Partial fill upon patient request if the prescription is for a... Start Date: 09/15/22 Stop Date: 01/13/23 Status: Ordered sertraline 100 mg oral tablet 1 tablet = 100 mg, By Mouth, Daily, para la presion, # 90 tablet, 1 Refills, Maintenance, 09/15/22 17:27:00 EDT, Tablet, [facility] #[id number], to replace 50mg, 182.88, cm, 09/15/22 16:16:00 EDT, Height, 106.6, kg, 07/08/22 8:56:00 EST, Dry Weight Start Date: 09/15/22 Stop Date: 03/14/23 Status: Ordered Vitamin B-12 100 mcg oral tablet 100 mcg, 1, tablet, By Mouth, Daily in AM, # 30 tablet, Refills 0, Tot. Refills 0, Maintenance, 12/31/21 9:24:00 EDT, Route to Pharmacy Electronically, [facility]/pharmacy #[id number], Partial fill upon patient request [...] LTSS Andree Dhaliwal [facility] [phone] Confirmed Active Prediabetes Confirmed Active Itching of male genitalia Confirmed Active Encounter for screening colonoscopy Confirmed Active Social History Social History Type Response Smoking Status Never (less than 100 in lifetime) entered on: 10/27/21 Sex Patient Care team information Care Team Personnel Name: Rob Rubin NP Position: [facility] Associate Professional Member Role: PCP Address: Address: [address] [place] [address] Name: Hali Gage RN Position: [facility] RN Member Role: Primary Care Nurse Name: Oliva Richey RN Position: [facility] RN Member Role: Primary Care Nurse Name: Alex Dolan RN Position: [facility] SN RN Member Role: Primary Care Nurse Name: Erica Alanis RN Position: S RN Member Role: Primary Care Nurse Name: Shantel Freeman RN Position: S RN Member Role: Primary Care Nurse Name: Janelle Browne RN Position: [facility] RN Supv Member Role: Primary Care Nurse Name: Mari Jack RN Position: S RN Member Role: Primary Care Nurse Name: Roshni Kenny RN Position: [facility] RN Member Role: Primary Care Nurse Care Team Related Persons Name: NEGRITO MEJIA Address: home [address] [place] [id number] Name: TAQUERIA MURILLO Address: home [address] [address] Name: TAQUERIA MURILLO Address: home [address] [place] [address]
--- OUTSIDE RECORDS SUMMARY | 2023-04-23 14:03 | XMS_ITS | Continuity of Care Document ---
Author Name Unknown Organization [facility] Address [address] [place] [id number]- Care Team Providers Care Yard Loader Operator Name Role Phone Scottie PACK, Rob Primary Care Physician [phone] [place] [facility] [place] Date(s): 01/19/23 - 02/18/[address] [address] Allergies, Adverse Reactions, Alerts No Known Allergies Immunizations Given and Recorded Vaccine Date Status Refusal Reason tetanus/diphtheria/pertussis, acel(Tdap) 09/18/15 Given Medications albuterol 0.083% inhalation solution 3 mL = 2.5 mg, Inhalation, Every 6 hours, PRN for wheezing, # 60 each, 3 Refills, Maintenance, 07/30/22 12:34:00 EST, [facility], [id number], instructions in Romanian please, 182.88, cm, 07/30/22 10:06:00 EST, Height, [...] 12:34:00 EST, Aerosol, Route to Pharmacy Electronically, [id number], [facility]/pharmacy #[id number], instructions in maltese please, 18... Start Date: 07/30/22 Status: Ordered ARIPiprazole 5 mg oral tablet 5 mg, 1, tablet, By Mouth, Daily, # 90 tablet, Refills 0, Tot. Refills 0, Maintenance, 01/18/23 10:52:00 EDT, Route to Pharmacy Electronically, [email or web address] #[id number], Partial fill upon patient request if the [...] 11/03/21 13:44:00 EDT, Route to Pharmacy Electronically, [facility]/pharmacy #[id number], Partial fill upon patient request if the prescription is for a schedule II... Start Date: 11/03/21 Status: Ordered hydrochlorothiazide-lisinopril 12.5 mg-20 mg oral tablet 1 tablet, By Mouth, Daily, para la presion, # 90 tablet, 1 Refills, Maintenance, 01/18/23 10:53:00 EDT, Tablet, [email or web address] #[id number], Partial fill upon patient request if the [...] 0 Refills, Soft Stop, 01/18/23 10:46:00 EDT, [facility] #[id number], Partial fill upon patient request if the [...] Refills, Maintenance, 01/18/23 10:53:00 EDT, CR Tablet, [facility] #[id number], please write all of this patient's medication in Romanian, 178, cm, 01/18/23 9:57:00 EDT, Height, 110, kg, 01/06/23 1... Start Date: 01/18/23 Stop Date: 10/15/23 Status: Ordered SEROquel 100 mg oral tablet 100 mg, 1, tablet, By Mouth, Daily, para dormir, # 90 tablet, Refills 1, Tot. Refills 1, Maintenance, 01/18/23 10:53:00 EDT, Route to Pharmacy Electronically, [facility] #[id number], Partial fill upon patient request if the prescription is for a... Start Date: 01/18/23 Stop Date: 07/17/23 Status: Ordered sertraline 100 mg oral tablet 1 tablet = 100 mg, By Mouth, Daily, para la presion, # 90 tablet, 1 Refills, Maintenance, 09/15/22 17:27:00 EDT, Tablet, [facility] #[id number], to replace 50mg, 182.88, cm, 09/15/22 16:16:00 EDT, Height, 106.6, kg, 07/08/22 8:56:00 EST, Dry Weight Start Date: 09/15/22 Stop Date: 03/14/23 Status: Ordered Vitamin B-12 100 mcg oral tablet 100 mcg, 1, tablet, By Mouth, Daily in AM, # 30 tablet, Refills 0, Tot. Refills 0, Maintenance, 12/31/21 9:24:00 EDT, Route to Pharmacy Electronically, [facility]/pharmacy #[id number], Partial fill upon patient [...] use disorder Confirmed Active LTSS Andree Dhaliwal [facility] [phone] Confirmed Active Prediabetes Confirmed Active Itching of male genitalia Confirmed Active Encounter for screening colonoscopy Confirmed Active Social History Social History Type Response Smoking Status Never (less than 100 in lifetime) entered on: 10/27/21 Sex Patient Care team information Care Team Personnel Name: Rob Rubin NP Position: [facility] Associate Professional Member Role: PCP Address: Address: [address] [place] [id number]- Name: Oliva Richey RN Position: S RN Member Role: Primary Care Nurse Name: Alex Dolan RN Position: [facility] SN RN Member Role: Primary Care Nurse Name: Erica Alanis RN Position: [facility] RN Member Role: Primary Care Nurse Name: Shantel Freeman RN Position: [facility] RN Member Role: Primary Care Nurse Name: Janelle Browne RN Position: [facility] RN Member Role: Primary Care Nurse Name: Mari Jack RN Position: [facility] RN Member Role: Primary Care Nurse Name: Red Mahmood RN Position: [facility] RN Member Role: Primary Care Nurse Name: Roshni Kenny RN Position: [facility] RN Member Role: Primary Care Nurse Care Team Related Persons Name: NEGRITO MEJIA Address: home [address] [place] [address] Name: TAQUERIA MURILLO Address: home [address] [place] [address] Name: TAQUERIA MURILLO Address: home [address] [place] [address]
--- OUTSIDE RECORDS SUMMARY | 2023-04-23 14:03 | XMS_ITS | Continuity of Care Document ---
Author Name Unknown Organization [facility] ter Address [address] [place] [id number]- Care Team Providers Care General Operations Agent Name Role Phone Scottie PACK, Rob Primary Care Physician [phone] [place] [facility] [place] 04/02/[address] [address]- Encounter Diagnosis Marijuana intoxication(Final) - 04/01/23 Discharge Disposition: A-D/C Home Attending Physician: Christopher Knight MD Admitting Physician: Christopher Knight MD Referring Physician: Not on Staff, Referring MD Allergies, Adverse Reactions, Alerts No Known Allergies Immunizations Given and Recorded Vaccine Date Status Refusal Reason tetanus/diphtheria/pertussis, acel(Tdap) 09/18/15 Given Medications albuterol 0.083% inhalation solution 3 mL = 2.5 mg, Inhalation, Every 6 hours, PRN for wheezing, # 60 each, 3 Refills, Maintenance, 07/30/22 12:34:00 EST, Solution, [id number], instructions in Mauritian please, 182.88, cm, 07/30/22 10:06:00 EST, Height, [...] 12:34:00 EST, Aerosol, Route to Pharmacy Electronically, [id number], [facility]/pharmacy #[id number], instructions in nepalese please, 18... Start Date: 07/30/22 Status: Ordered ARIPiprazole 5 mg oral tablet 1, tablet, By Mouth, Daily, # 90 tablet, Refills 1, Maintenance, 03/17/23 21:05:00 EDT, Route to Pharmacy Electronically, [facility] #[id number], 178, cm, 03/17/23 11:44:00 EDT, Height, 108.7, [...] 13:44:00 EDT, Route to Pharmacy Electronically, [facility]/pharmacy #[id number], Partial fill upon patient request if the prescription is for a schedule II... Start Date: 11/03/21 Status: Ordered hydrochlorothiazide-lisinopril 12.5 mg-20 mg oral tablet 1 tablet, By Mouth, Daily, para la presion, # 90 tablet, 1 Refills, Maintenance, 01/18/23 10:53:00 EDT, Tablet, [facility] #[id number], Partial fill upon patient request if the [...] Acute 04/12/23 15:01:00 EST, 03/29/2315:01:00 EST, Cream, [facility] #[id number], P... Start Date: 03/29/23 Stop Date: 04/12/23 Status: Ordered loratadine 10 mg oral tablet 10 mg, 1, tablet, By Mouth, Daily, # 30 tablet, Refills 1, Tot. Refills 1, Maintenance, 03/29/23 14:55:00 EST, Route to Pharmacy Electronically, [facility] #[id number], Partial fill upon patientrequest if the prescription is for a schedule II op... Start Date: 03/29/23 Stop Date: 05/28/23 Status: Ordered Melatonin 5 mg oral tablet [...] 0 Refills, Soft Stop, 01/18/23 10:46:00 EDT, [facility] #[id number], Partial fill upon patient request if the [...] Refills, Maintenance, 01/18/23 10:53:00 EDT, CR Tablet, [facility] #[id number], please write all of this patient's medication in Mauritian, 178, cm, 01/18/23 9:57:00 EDT, Height, 110, kg, 01/06/23 1... Start Date: 01/18/23 Stop Date: 10/15/23 Status: Ordered SEROquel 100 mg oral tablet 100 mg, 1, tablet, By Mouth, Daily, para dormir, # 90 tablet, Refills 1, Tot. Refills 1, Maintenance, 01/18/23 10:53:00 EDT, Route to Pharmacy Electronically, [facility] #[id number], Partial fill upon patient request if the prescription is for a... Start Date: 01/18/23 Stop Date: 07/17/23 Status: Ordered sertraline 100 mg oral tablet 1 tablet = 100 mg, By Mouth, Daily, para la presion, # 90 tablet, 1 Refills, Maintenance, 09/15/22 17:27:00 EDT, Tablet, [facility] #[id number], to replace 50mg, 182.88, cm, 09/15/22 16:16:00 EDT, Height, 106.6, kg, 07/08/22 8:56:00 EST, Dry Weight Start Date: 09/15/22 Stop Date: 03/14/23 Status: Ordered Vitamin B-12 100 mcg oral tablet 100 mcg, 1, tablet, By Mouth, Daily in AM, # 30 tablet, Refills 0, Tot. Refills 0, Maintenance, 12/31/21 9:24:00 EDT, Route to Pharmacy Electronically, [facility]/pharmacy #[id number], Partial fill upon patient request if the [...] use disorder Confirmed Active LTSS Andree Dhaliwal [facility] [phone] Confirmed Active Prediabetes Confirmed Active Itching of male genitalia Confirmed Active Encounter for screening colonoscopy Confirmed Active Severe obesity (BMI 35.0-39.9) with comorbidity Confirmed Active Results Radiology Reports * Exam Date Time Procedure Performing Provider Status 04/01/23 11:09 PM Chest Portable Bradley Strickland; John ( Verified) Notes: (Chest Portable) Reason For Exam: Shortness of Breath RESULT: Chest Portable PROCEDURE: Chest Portable CLINICAL INDICATION: 57 years old Male with Hx of Present Illness: Pt brought in by friend family, reportedly took an edible; Reason: Shortness of Breath; Clinical Question(s): CHF. COMPARISON: Chest radiographs 2010 through a 2022. FINDINGS: Portable AP semierect view of the chest performed at 11:02 PM. Lines and tubes: None. Lungs and pleura: Decreased lung inflation compared to prior exams. Mild to moderate linear atelectasis at the bilateral lung bases superimposed on mild chronic linear scarring. Lungs otherwise clearas visualized.. No pleural effusions.No evidence of pneumothorax. Heart, mediastinum and pranav: Mild unchanged tortuosity of the thoracic aorta noted. No cardiomegalyor pulmonary venous hypertension. Bones and soft tissues: No other demonstrable abnormality. IMPRESSION: 1. Decreased inspiration with mild linear bibasilar atelectasis superimposed on minimal bibasilar scarring. Thank you for allowing me to participate in the care of this patient. WSN: [id number] Ordering Physician: Cedric Mccabe Dictated By: Cecil Iverson MD Dictated Date/Time: 04/01/23 11:26 p Reviewed By: Cecil Iverson MD Signed By: Cecil Iverson MD Signed Date/Time: 04/01/23 11:26 pm Transcribed By: NATALIE Transcribed Date/Time: 04/01/23 11:25 pm Vital Signs Most recent to oldest [Reference Range]: 1 2 3 Height 175 cm (04/01/23 8:22 PM) 175 cm (04/01/23 7:55 PM) Weight 118 kg (04/01/23 8:22 PM) 118 kg (04/01/23 7:55 PM) Oxygen Saturation [94-100 %] 97 % (04/02/23 3:20 AM) 96 % (04/02/23 1:04 AM) 93 % *L* (04/01/23 8:48 PM) Pulse Rate [55-90 bpm] 71 bpm (04/02/23 3:20 AM) 78 bpm (04/02/23 1:04 AM) 85 bpm (04/01/23 8:48 PM) Body Mass Index [18.5-24.99 kg/m2] 38.53 kg/m2 *>HHI* (04/01/23 7:55 PM) Blood Pressure [90-138/55-84 mm Hg] 149/93mm Hg *H* (04/02/23 3:20 AM) 117/74mm Hg (04/02/23 1:04 AM) 120/62mm Hg (04/01/23 8:48 PM) Respiratory Rate [16-30 br/min] 18 br/min (04/02/23 3:20 AM) 20 br/min (04/02/23 1:04 AM) 16 br/min (04/01/23 8:48 PM) Mode of Delivery (Oxygen) Room air (04/02/23 3:20 AM) Room air (04/02/23 1:04 AM) Room air (04/01/23 8:48 PM) Blood pressure sites Arm, right (04/02/23 1:04 AM) Arm, right (04/01/23 8:48 PM) Arm, right (04/01/23 7:55 PM) Dry Weight 118 kg (04/01/23 8:22 PM) 118 kg (04/01/23 7:55 PM) Weight Obtained Via Standing scale (04/01/23 7:55 PM) Dry Weight Obtained Via Standing scale (04/01/23 7:55 PM) Social History Social History Type Response Smoking Status Never (less than 100 in lifetime) entered on: 6/6/22 Sex EKG study * Event Display: EKG Authored Date: Patient Care team information Care Team Personnel Name: Rob Rubin NP Position: [facility] Associate Professional Member Role: PCP Address: Address: [address] [place] [address]- Name: Hali Gage RN Position: [facility] RN Member Role: Primary Care Nurse Name: Oliva Richey RN Position: [facility] RN Member Role: Primary Care Nurse Name: Alex Dolan RN Position: [facility] SN RN Member Role: Primary Care Nurse Name: Erica Alanis RN Position: [facility] RN Member Role: Primary Care Nurse Name: Shantel Freeman RN Position: [facility] RN Member Role: Primary Care Nurse Name: Janelle Browne RN Position: [facility] RN Member Role: Primary Care Nurse Name: Mari Jack RN Position: [facility] RN Member Role: Primary Care Nurse Name: Red Mahmood RN Position: [facility] RN Member Role: Primary Care Nurse Name: Roshni Kenny RN Position: [facility] RN Member Role: Primary Care Nurse Name: Masha Jaffe RN Position: [facility] ED RN W/OE and Tasks Member Role: Patient Care Provider Name: Mona Ferrer Position: [facility] Associate Professional Member Role: ED Physician Cardiopulmonary Technician And Eeg Tech Address: Address: [address] [place] [address]- Name: Ina Sawyer Position: [facility] ED [facility] Name: Christopher Knight MD Position: [facility] Resident Member Role: Admitting Physician Address: Address: [address] [place] [address]- Care Team Related Persons Name: NEGRITO MEJIA Address: home [address] [place] [id number] Name: TAQUERIA MURILLO Address: home [address] [place] [address] Name: TAQUERIA MURILLO Address: home [address] [place] [address]
--- OUTSIDE RECORDS SUMMARY | 2023-04-23 14:03 | XMS_ITS | Continuity of Care Document ---
Author Name Unknown Organization [facility] Address [address] [place] [address]- Care Team Providers Care Night Shift Manager Name Role Phone Scottie PACK, Rob Primary Care Physician Encounter [facility] Date(s): 07/16/22 - 08/15/[address] [address] Allergies, Adverse Reactions, Alerts No Known Allergies Immunizations Given and Recorded Vaccine Date Status Refusal Reason tetanus/diphtheria/pertussis, acel(Tdap) 09/18/15 Given Medications albuterol 0.083% inhalation solution 3 mL = 2.5 mg, Inhalation, Every 6 hours, PRN for wheezing, # 60 each, 3 Refills, Maintenance, 07/30/22 12:34:00 EST, [facility], [id number], instructions in Guamanian please, 182.88, cm, 07/30/22 10:06:00 EST, Height, [...] 12:34:00 EST, Aerosol, Route to Pharmacy Electronically, [id number], [facility]/pharmacy #[id number], instructions in thai please, 18... Start Date: 07/30/22 Status: Ordered ARIPiprazole 5 mg oral tablet 5 mg, 1, tablet, By Mouth, Daily, # 30 tablet, Refills 0, Tot. Refills 0, Maintenance, 11/03/21 13:43:00 EDT, Route to Pharmacy Electronically, [facility] [...] 07/30/22 12:33:00 EST, Route to Pharmacy Electronically, [facility]/pharmacy #[id number], instructions in Guamanian please, 182.88, cm, 03... Start Date: 07/30/22 Stop Date: 09/20/22 Status: Ordered ketotifen 0.025% ophthalmic solution 1 drops, Eyes, Both, Every 12 hours, PRN Other, for 30 days, # 7.5 mL, 0 Refills, Acute 08/29/22 11:30:00 EDT, 07/30/22 11:30:00 EST, Solution, [facility]/pharmacy #[id number], Partial fill upon patient request if the prescription is for a schedule II opioid drug.... Start Date: 07/30/22 Stop Date: 08/29/22 Status: Ordered lisinopril 20 mg oral tablet 20 mg, 1, tablet, By Mouth, Daily, # 90 tablet, Refills 1, Tot. Refills 1, Maintenance, 05/27/22 11:13:00 EST, [id number], Partial fill upon patient request if the [...] 12:40:00 EDT, 07/30/22 12:34:00 EST, REC Powder, [facility]/pharmacy #[id number], instructions in Guamanian please,... Start Date: 07/30/22 Stop Date: 09/20/22 Status: Ordered MiraLax oral powder for reconstitution = 17 Gm, By Mouth, Daily, PRN Constipation, dissolve in 8 oz water before taking, # 255 Gm, 3 Refills, Acute 09/20/22 12:38:00 EDT, 07/30/22 12:34:00 EST, REC Powder, [facility]/pharmacy #[id number], instructionsin Guamanian please, 17 Gm By Mouth Daily,PRN:Constip... Start [...] Refills, Maintenance, 05/27/22 11:13:00 EST, CR Tablet, [facility]/pharmacy #[id number], Partial fill upon patient request if [...] 07/30/22 12:34:00 EST, Route to Pharmacy Electronically, [facility]/pharmacy #2339 Tablet, instructions in Guamanian p... Start Date: 07/30/22 Stop Date: 09/20/22 Status: Ordered SEROquel 50 mg oral tablet 1 tablet = 50 mg, By Mouth, Daily, use at bedtime to help with sleep stop taking trazodone, # 30 tablet, 2 Refills, Maintenance, 07/30/22 13:05:00 EST, Tablet, [facility]/pharmacy #[id number], instructions in thai please, 182.88, cm, 07/30/22 10:06:00 EST, H... Start Date: 07/30/22 Stop Date: 10/28/22 Status: Ordered sertraline 100 mg oral tablet 1 tablet = 100 mg, By Mouth, Daily, # 90 tablet, 0 Refills, Maintenance, 04/30/22 15:10:00 EST, Tablet, [facility]/pharmacy #[id number], to replace 50mg, 182.88, cm, 04/30/22 14:42:00 EST, Height, 104.4, kg, 12/24/21 19:20:00 EDT, Dry Weight Start Date: 04/30/22 Stop Date: 07/29/22 Status: Ordered Vitamin B-12 100 mcg oral tablet 100 mcg, 1, tablet, By Mouth, Daily in AM, # 30 tablet, Refills 0, Tot. Refills 0, Maintenance, 12/31/21 9:24:00 EDT, Route to Pharmacy Electronically, [facility]/pharmacy #[id number], Partial fill upon patient request if the [...] 08/21/22 13:07:00 EDT, 07/30/22 13:06:00 EST, Paste, [facility]/pharmacy #[id number]... Start Date: 07/30/22 Stop Date: 08/21/22 Status: [...] Active Obese class I Confirmed Active N [facility] Care Management, Brake Coupler Dinkey oSfya Mendoza, Confirmed Active Prediabetes Confirmed Active Itching of male genitalia Confirmed Active Encounter for screening colonoscopy Confirmed Active Social History Social History Type Response Smoking Status Never (less than 100 in lifetime) entered on: 10/27/21 Sex Patient Care team information Care Team Personnel Name: Rob Rubin NP Position: [facility] Associate Professional Member Role: PCP Address: Address: [address] [place] [address] Name: Hali Gage RN Position: S RN Member Role: Primary Care Nurse Name: Oliva Richey RN Position: [facility] RN Member Role: Primary Care Nurse Name: Alex Dolan RN Position: [facility] SN RN Member Role: Primary Care Nurse Name: Erica Alanis RN Position: [facility] RN Member Role: Primary Care Nurse Name: Shantel Freeman RN Position: [facility] RN Member Role: Primary Care Nurse Name: Janelle Browne RN Position: [facility] RN Supv Member Role: Primary Care Nurse Name: Mari Jack RN Position: [facility] RN Member Role: Primary Care Nurse Name: Shazia Jorgensen RN Position: [facility] RN Member Role: Primary Care Nurse Name: Roshni Kenny RN Position: [facility] RN Member Role: Primary Care Nurse Care Team Related Persons Name: NEGRITO MEJIA Address: home [address] [place] [address] Name: TAQUERIA MURILLO Address: home [address] [place] [address] Name: TAQUERIA MURILLO Address: home [address] [place] [address]
--- OUTSIDE RECORDS SUMMARY | 2023-04-23 14:03 | XMS_ITS | Continuity of Care Document ---
Author Name Unknown Organization [facility] Address [address] [place] [address]- Care Team Providers Care Supervisor Assembly Room Name Role Phone Scottie PACK, Rob Primary Care Physician [place] [facility] [id number] Date(s): 10/05/22 - 11/04/[address] [address]- Attending Physician: Edin Choudhury Admitting Physician: Edin Choudhury Referring Physician: AdmtrEdin Allergies, Adverse Reactions, Alerts No Known Allergies Immunizations Given and Recorded Vaccine Date Status Refusal Reason tetanus/diphtheria/pertussis, acel(Tdap) 09/18/15 Given Medications albuterol 0.083% inhalation solution 3 mL = 2.5 mg, Inhalation, Every 6 hours, PRN for wheezing, # 60 each, 3 Refills, Maintenance, 07/30/22 12:34:00 EST, Solution, [id number], instructions in Marshallese please, 182.88, cm, 07/30/22 10:06:00 EST, Height, [...] 12:34:00 EST, Aerosol, Route to Pharmacy Electronically, [id number], [facility]/pharmacy #[id number], instructions in nigerien please, 18... Start Date: 07/30/22 Status: Ordered ARIPiprazole 5 mg oral tablet 5 mg, 1, tablet, By Mouth, Daily, # 30 tablet, Refills 0, Tot. Refills 0, Maintenance, 11/03/21 13:43:00 EDT, Route to Pharmacy Electronically, [facility]/pharmacy #[id number], Partial fill upon patient [...] 11/03/21 13:44:00 EDT, Route to Pharmacy Electronically, [facility]/pharmacy #[id number], Partial fill upon patient request if the prescription is for a schedule II... Start Date: 11/03/21 Status: Ordered hydrochlorothiazide-lisinopril 12.5 mg-20 mg oral tablet 1 tablet, By Mouth, Daily, para la presion, # 90 tablet, 1 Refills, Maintenance, 09/15/22 17:27:00 EDT, Tablet, [facility] #[id number], Partial fill upon patient request if the [...] Refills, Maintenance, 05/27/22 11:13:00 EST, CR Tablet, [facility]/pharmacy #[id number], Partial fill upon patient request if the prescription is for a schedule II opioid drug., 182.88, cm, 04/30/22 14:42:00 EST, H... Start Date: 05/27/22 Stop Date: 08/25/22 Status: Ordered SEROquel 100 mg oral tablet 100 mg, 1, tablet, By Mouth, Daily, para dormir, # 30 tablet, Refills 3, Tot. Refills 3, Maintenance, 11/04/22 14:48:00 EDT, Route to Pharmacy Electronically, [facility] #[id number], Partial fill upon patient request if the prescription is for a... Start Date: 11/04/22 Stop Date: 03/04/23 Status: Ordered sertraline 100 mg oral tablet 1 tablet = 100 mg, By Mouth, Daily, para la presion, # 90 tablet, 1 Refills, Maintenance, 09/15/22 17:27:00 EDT, Tablet, [facility] #[id number], to replace 50mg, 182.88, cm, 09/15/22 16:16:00 EDT, Height, 106.6, kg, 07/08/22 8:56:00 EST, Dry Weight Start Date: 09/15/22 Stop Date: 03/14/23 Status: Ordered Vitamin B-12 100 mcg oral tablet 100 mcg, 1, tablet, By Mouth, Daily in AM, # 30 tablet, Refills 0, Tot. Refills 0, Maintenance, 12/31/21 9:24:00 EDT, Route to Pharmacy Electronically, [facility]/pharmacy #[id number], Partial fill upon patient [...] use disorder Confirmed Active LTSS Andree Dhaliwal [facility] [phone] Confirmed Active Prediabetes Confirmed Active Itching of male genitalia Confirmed Active Encounter for screening colonoscopy Confirmed Active Social History Social History Type Response Smoking Status Never (less than 100 in lifetime) entered on: 10/27/21 Sex Patient Care team information Care Team Personnel Name: Rob Rubin NP Position: [facility] Associate Professional Member Role: PCP Address: Address: [address] [place] [address] Name: Hali Gage RN Position: [facility] RN Member Role: Primary Care Nurse Name: Oliva Richey RN Position: [facility] RN Member Role: Primary Care Nurse Name: Alex Dolan RN Position: [facility] SN RN Member Role: Primary Care Nurse Name: Erica Alanis RN Position: S RN Member Role: Primary Care Nurse Name: Shantel Freeman RN Position: S RN Member Role: Primary Care Nurse Name: Janelle Browne RN Position: [facility] RN Supv Member Role: Primary Care Nurse Name: Mari Jack RN Position: [facility] RN Member Role: Primary Care Nurse Name: Roshni Kenny RN Position: [facility] RN Member Role: Primary Care Nurse Care Team Related Persons Name: NEGRITO MEJIA Address: home [address] [place] [address] Name: TAQUERIA MURILLO Address: home [address] [place] [address] Name: TAQUERIA MURILLO Address: home [address] [place] [address]
--- OUTSIDE RECORDS SUMMARY | 2023-04-23 14:03 | XMS_ITS | Continuity of Care Document ---
Author Name Unknown Organization [facility] Address [address] [place] [address]- Care Team Providers Care Computer Aide Name Role Phone Rob Rubin NP Primary Care Physician Encounter [facility] [id number] Date(s): 07/30/22 - 08/29/[address] [address]- Attending Physician: AdmEdin gifford Admitting Physician: AdmtrEdin Referring Physician: Admtr, Ar8 Allergies, Adverse Reactions, Alerts No Known Allergies Immunizations Given and Recorded Vaccine Date Status Refusal Reason tetanus/diphtheria/pertussis, acel(Tdap) 09/18/15 Given Medications albuterol 0.083% inhalation solution 3 mL = 2.5 mg, Inhalation, Every 6 hours, PRN for wheezing, # 60 each, 3 Refills, Maintenance, 07/30/22 12:34:00 EST, Solution, [id number], instructions in Haitian please, 182.88, cm, 07/30/22 10:06:00 EST, Height, [...] 12:34:00 EST, Aerosol, Route to Pharmacy Electronically, [id number], [facility]/pharmacy #[id number], instructions in thai please, 18... Start Date: 07/30/22 Status: Ordered ARIPiprazole 5 mg oral tablet 5 mg, 1, tablet, By Mouth, Daily, # 30 tablet, Refills 0, Tot. Refills 0, Maintenance, 11/03/21 13:43:00 EDT, Route to Pharmacy Electronically, [facility][id number], [facility] fill upon patient [id number], Partial fill upon patient request if the prescription is for a schedule II... Start Date: 11/03/21 Status: Ordered ibuprofen 400 mg oral tablet 400 mg, 1, tablet, By Mouth, Every 6 hours, PRN, # 60 tablet, Refills 0, Tot. Refills 0, Acute 09/20/22 12:39:00 EDT, for pain, 07/30/22 12:33:00 EST, Route to Pharmacy Electronically, [facility]/pharmacy #[id number], instructions in Haitian please, 182.88, cm, 03... Start Date: 07/30/22 Stop Date: 09/20/22 Status: Ordered lisinopril 20 mg oral tablet 20 mg, 1, tablet, By Mouth, Daily, # 90 tablet, Refills 1, Tot. Refills 1, Maintenance, 05/27/22 11:13:00 EST, [id number] Partial fill upon patient request if the [...] 12:40:00 EDT, 07/30/22 12:34:00 EST, REC Powder, [facility]/pharmacy #2339, instructions in Haitian please,... Start Date: 07/30/22 Stop Date: 09/20/22 Status: Ordered MiraLax oral powder for reconstitution = 17 Gm, By Mouth, Daily, PRN Constipation, dissolve in 8 oz water before taking, # 255 Gm, 3 Refills, Acute 09/20/22 12:38:00 EDT, 07/30/22 12:34:00 EST, REC Powder, [id number], instructionsin Haitian please, 17 Gm By Mouth Daily,PRN:Constip... Start [...] Maintenance, 05/27/22 11:13:00 EST, CR Tablet, [facility]/pharmacy #[id number], Partial fill upon patient [...] 07/30/22 12:34:00 EST, Route to Pharmacy Electronically, [facility]/pharmacy #2339 Tablet, instructions in Haitian p... Start Date: 07/30/22 Stop Date: 09/20/22 Status: Ordered SEROquel 50 mg oral tablet 1 tablet = 50 mg, By Mouth, Daily, use at bedtime to help with sleep stop taking trazodone, # 30 tablet, 2 Refills, Maintenance, 07/30/22 13:05:00 EST, Tablet, [facility]/pharmacy #2339, instructions in thai please, 182.88, cm, 07/30/22 10:06:00 EST, H... Start Date: 07/30/22 Stop Date: 10/28/22 Status: Ordered sertraline 100 mg oral tablet 1 tablet = 100 mg, By Mouth, Daily, # 90 tablet, 0 Refills, Maintenance, 04/30/22 15:10:00 EST, Tablet, [facility]/pharmacy #[id number], to replace 50mg, 182.88, cm, 04/30/22 14:42:00 EST, Height, 104.4, kg, 12/24/21 19:20:00 EDT, Dry Weight Start Date: 04/30/22 Stop Date: 07/29/22 Status: Ordered Vitamin B-12 100 mcg oral tablet 100 mcg, 1, tablet, By Mouth, Daily in AM, # 30 tablet, Refills 0, Tot. Refills 0, Maintenance, 12/31/21 9:24:00 EDT, Route to Pharmacy Electronically, [facility]/pharmacy #[id number], Partial fill upon patient [...] Active Obese class I Confirmed Active N [facility] Care Management, Automated Equipment Engineer Technician Sofya Mendoza, Confirmed Active Prediabetes Confirmed Active Itching of male genitalia Confirmed Active Encounter for screening colonoscopy Confirmed Active Social History Social History Type Response Smoking Status Never (less than 100 in lifetime) entered on: 10/27/21 Sex Patient Care team information Care Team Personnel Name: Rob Rubin NP Position: [facility] Associate Professional Member Role: PCP Address: Address: [address] [place] [address] Name: Hali Gage RN Position: [facility] RN Member Role: Primary Care Nurse Name: Oliva Richey RN Position: [facility] RN Member Role: Primary Care Nurse Name: Alex Dolan RN Position: [facility] SN RN Member Role: Primary Care Nurse Name: Erica Alanis RN Position: [facility] RN Member Role: Primary Care Nurse Name: Shantel Freeman RN Position: S RN Member Role: Primary Care Nurse Name: Janelle Browne RN Position: [facility] RN Supv Member Role: Primary Care Nurse Name: Mari Jack RN Position: S RN Member Role: Primary Care Nurse Name: Shazia Jorgensen RN Position: S RN Member Role: Primary Care Nurse Name: Roshni Kenny RN Position: S RN Member Role: Primary Care Nurse Care Team Related Persons Name: ROBERTO NEGRITO Address: [place] [address] Name: TAQUERIA MURILLO Address: home [address] [place] [address] Name: TAQUERIA MURILLO Address: [address] [place] [address]
--- OUTSIDE RECORDS SUMMARY | 2023-04-23 14:03 | XMS_ITS | Continuity of Care Document ---
Author Name Unknown Organization [facility] Address [address] [place] [address]- Care Team Providers Care Gas Regulator Repairer Name Role Phone Scottie PACK, Rob Primary Care Physician [phone] Encounter [facility] Date(s): 01/18/23 - 02/17/[address] [id number] Allergies, Adverse Reactions, Alerts No Known Allergies Immunizations Given and Recorded Vaccine Date Status Refusal Reason tetanus/diphtheria/pertussis, acel(Tdap) 09/18/15 Given Medications albuterol 0.083% inhalation solution 3 mL = 2.5 mg, Inhalation, Every 6 hours, PRN for wheezing, # 60 each, 3 Refills, Maintenance, 07/30/22 12:34:00 EST, [facility], [id number], instructions in Wolof please, 182.88, cm, 07/30/22 10:06:00 EST, Height, [...] 12:34:00 EST, Aerosol, Route to Pharmacy Electronically, [id number], [facility]/pharmacy #[id number], instructions in slovak please, 18... Start Date: 07/30/22 Status: Ordered ARIPiprazole 5 mg oral tablet 5 mg, 1, tablet, By Mouth, Daily, # 90 tablet, Refills 0, Tot. Refills 0, Maintenance, 01/18/23 10:52:00 EDT, Route to Pharmacy Electronically, [facility] #[id number], Partial fill upon patient request if the [...] 11/03/21 13:44:00 EDT, Route to Pharmacy Electronically, [facility]/pharmacy #[id number], Partial fill upon patient request if the prescription is for a schedule II... Start Date: 11/03/21 Status: Ordered hydrochlorothiazide-lisinopril 12.5 mg-20 mg oral tablet 1 tablet, By Mouth, Daily, para la presion, # 90 tablet, 1 Refills, Maintenance, 01/18/23 10:53:00 EDT, Tablet, [facility] #[id number], Partial fill upon patient request if the [...] 0 Refills, Soft Stop, 01/18/23 10:46:00 EDT, [facility] #[id number], Partial fill upon patient request if the [...] Refills, Maintenance, 01/18/23 10:53:00 EDT, CR Tablet, [facility] #[id number], please write all of this patient's medication in Wolof, 178, cm, 01/18/23 9:57:00 EDT, Height, 110, kg, 01/06/23 1... Start Date: 01/18/23 Stop Date: 10/15/23 Status: Ordered SEROquel 100 mg oral tablet 100 mg, 1, tablet, By Mouth, Daily, para dormir, # 90 tablet, Refills 1, Tot. Refills 1, Maintenance, 01/18/23 10:53:00 EDT, Route to Pharmacy Electronically, [facility] #[id number], Partial fill upon patient request if the prescription is for a... Start Date: 01/18/23 Stop Date: 07/17/23 Status: Ordered sertraline 100 mg oral tablet 1 tablet = 100 mg, By Mouth, Daily, para la presion, # 90 tablet, 1 Refills, Maintenance, 09/15/22 17:27:00 EDT, Tablet, [facility] #[id number], to replace 50mg, 182.88, cm, 09/15/22 16:16:00 EDT, Height, 106.6, kg, 07/08/22 8:56:00 EST, Dry Weight Start Date: 09/15/22 Stop Date: 03/14/23 Status: Ordered Vitamin B-12 100 mcg oral tablet 100 mcg, 1, tablet, By Mouth, Daily in AM, # 30 tablet, Refills 0, Tot. Refills 0, Maintenance, 12/31/21 9:24:00 EDT, Route to Pharmacy Electronically, [facility]/pharmacy #[id number], Partial fill upon patient request if [...] Confirmed Active LTSS Andree Dhaliwal [facility] [phone] Confirmed Active Prediabetes Confirmed Active Itching of male genitalia Confirmed Active Encounter for screening colonoscopy Confirmed Active Social History Social History Type Response Smoking Status Never (less than 100 in lifetime) entered on: 10/27/21 Sex Patient Care team information Care Team Personnel Name: Rob Rubin NP Position: [facility] Associate Professional Member Role: PCP Address: Address: [address] [place] [address]- Name: Oliva Richey RN Position: S RN Member Role: Primary Care Nurse Name: Alex Dolan RN Position: [facility] RN Member Role: Primary Care Nurse Name: Erica Alanis RN Position: [facility] RN Member Role: Primary Care Nurse Name: Shantel Freeman RN Position: [facility] RN Member Role: Primary Care Nurse Name: Janelle Browne RN Position: [facility] RN Member Role: Primary Care Nurse Name: Mari Jack RN Position: [facility] RN Member Role: Primary Care Nurse Name: Red Mahmood RN Position: [facility] RN Member Role: Primary Care Nurse Name: Roshni Kenny RN Position: [facility] RN Member Role: Primary Care Nurse Care Team Related Persons Name: NEGRITO MEJIA Address: home [address] [place] [address] Name: TAQUERIA MURILLO Address: home [address] [place] [address] Name: TAQUERIA MURILLO Address: home [address] [place] [address]
--- OUTSIDE RECORDS SUMMARY | 2023-04-23 14:03 | XMS_ITS | Continuity of Care Document ---
Author Name Unknown Organization [facility] Address [address] [place] [address]- Care Team Providers Care Warehouse Selector Name Role Phone Scottie PACK, Rob Primary Care Physician [phone] Encounter [facility] Date(s): 10/16/22 - 11/15/[address] [address]- Allergies, Adverse Reactions, Alerts No Known Allergies Immunizations Given and Recorded Vaccine Date Status Refusal Reason tetanus/diphtheria/pertussis, acel(Tdap) 09/18/15 Given Medications albuterol 0.083% inhalation solution 3 mL = 2.5 mg, Inhalation, Every 6 hours, PRN for wheezing, # 60 each, 3 Refills, Maintenance, 07/30/22 12:34:00 EST, [facility], [id number], instructions in Iranian please, 182.88, cm, 07/30/22 10:06:00 EST, Height, [...] 12:34:00 EST, Aerosol, Route to Pharmacy Electronically, [id number], [facility]/pharmacy #[id number], instructions in mauritanian please, 18... Start Date: 07/30/22 Status: Ordered [...] 1 Refills, Maintenance, 09/15/22 17:27:00 EDT, Tablet, [facility] #[id number], Partial fill upon patient request if the [...] 11:13:00 EST, CR Tablet, [facility]/pharmacy #[id number], Partial fill upon patient request if the prescription is for a schedule II opioid drug., 182.88, cm, 04/30/22 14:42:00 EST, H... Start Date: 05/27/22 Stop Date: 08/25/22 Status: Ordered SEROquel 100 mg oral tablet 100 mg, 1, tablet, By Mouth, Daily, para dormir, # 30 tablet, Refills 3, Tot. Refills 3, Maintenance, 11/04/22 14:48:00 EDT, Route to Pharmacy Electronically, [facility] #[id number], Partial fill upon patient request if the prescription is for a... Start Date: 11/04/22 Stop Date: 03/04/23 Status: Ordered sertraline 100 mg oral tablet 1 tablet = 100 mg, By Mouth, Daily, para la presion, # 90 tablet, 1 Refills, Maintenance, 09/15/22 17:27:00 EDT, Tablet, [facility] #[id number], to replace 50mg, 182.88, cm, 09/15/22 16:16:00 [...] use disorder Confirmed Active LTSS Andree Dhaliwal [facility] [phone] Confirmed Active Prediabetes Confirmed Active Itching of male genitalia Confirmed Active Encounter for screening colonoscopy Confirmed Active Social History Social History Type Response Smoking Status Never (less than 100 in lifetime) entered on: 10/27/21 Sex Patient Care team information Care Team Personnel Name: Rob Rubin NP Position: [facility] Associate Professional Member Role: PCP Address: Address: [address] [place] [address] Name: Hali Gage RN Position: [facility] RN Member Role: Primary Care Nurse Name: Oliva Richey RN Position: [facility] RN Member Role: Primary Care Nurse Name: Alex Dolan RN Position: [facility] SN RN Member Role: Primary Care Nurse Name: Erica Alanis RN Position: S RN Member Role: Primary Care Nurse Name: Shantel Freeman RN Position: S RN Member Role: Primary Care Nurse Name: Janelle Browne RN Position: [facility] RN Supv Member Role: Primary Care Nurse Name: Mari Jack RN Position: S RN Member Role: Primary Care Nurse Name: Roshni Kenny RN Position: [facility] RN Member Role: Primary Care Nurse Care Team Related Persons Name: NEGRITO MEJIA Address: home [address] [place] [address] Name: TAQUERIA MURILLO Address: home [address] [place] [address] Name: TAQUERIA MURILLO Address: home [address] [place] [address]
--- OUTSIDE RECORDS SUMMARY | 2023-04-23 14:03 | XMS_ITS | Continuity of Care Document ---
Author Name Unknown Organization [facility] Address [address] [place] [address]- Care Team Providers Care Diet Kitchen Cook Name Role Phone Rob Rubin NP Primary Care Physician Encounter [facility] Date(s): 10/28/22 - 11/27/[address] [address] Allergies, Adverse Reactions, Alerts No Known Allergies Immunizations Given and Recorded Vaccine Date Status Refusal Reason tetanus/diphtheria/pertussis, acel(Tdap) 09/18/15 Given Medications albuterol 0.083% inhalation solution 3 mL = 2.5 mg, Inhalation, Every 6 hours, PRN for wheezing, # 60 each, 3 Refills, Maintenance, 07/30/22 12:34:00 EST, [facility], [id number], instructions in Ecuadorean please, 182.88, cm, 07/30/22 10:06:00 EST, Height, [...] 12:34:00 EST, Aerosol, Route to Pharmacy Electronically, [id number], [facility]/pharmacy #[id number], instructions in sierra leonean please, 18... Start Date: 07/30/22 Status: Ordered ARIPiprazole 5 mg oral tablet 5 mg, 1, tablet, By Mouth, Daily, # 30 tablet, Refills 0, Tot. Refills 0, Maintenance, 11/03/21 13:43:00 EDT, Route to Pharmacy Electronically, [facility]/pharmacy #[id number], Partial fill upon [...] 11/03/21 13:44:00 EDT, Route to Pharmacy Electronically, [facility]/pharmacy #[id number], Partial fill upon patient request if the prescription is for a schedule II... Start Date: 11/03/21 Status: Ordered hydrochlorothiazide-lisinopril 12.5 mg-20 mg oral tablet 1 tablet, By Mouth, Daily, para la presion, # 90 tablet, 1 Refills, Maintenance, 09/15/22 17:27:00 EDT, Tablet, [facility] #[id number], Partial fill upon patient request if the [...] Refills, Maintenance, 05/27/22 11:13:00 EST, CR Tablet, [facility]/pharmacy #[id number], Partial fill upon patient request if the prescription is for a schedule II opioid drug., 182.88, cm, 04/30/22 14:42:00 EST, H... Start Date: 05/27/22 Stop Date: 08/25/22 Status: Ordered SEROquel 100 mg oral tablet 100 mg, 1, tablet, By Mouth, Daily, para dormir, # 30 tablet, Refills 3, Tot. Refills 3, Maintenance, 11/04/22 14:48:00 EDT, Route to Pharmacy Electronically, [facility] #[id number], Partial fill upon patient request if the prescription is for a... Start Date: 11/04/22 Stop Date: 03/04/23 Status: Ordered sertraline 100 mg oral tablet 1 tablet = 100 mg, By Mouth, Daily, para la presion, # 90 tablet, 1 Refills, Maintenance, 09/15/22 17:27:00 EDT, Tablet, [facility] #[id number], to replace 50mg, 182.88, cm, 09/15/22 16:16:00 EDT, Height, 106.6, kg, 07/08/22 8:56:00 EST, Dry Weight Start Date: 09/15/22 Stop Date: 03/14/23 Status: Ordered Vitamin B-12 100 mcg oral tablet 100 mcg, 1, tablet, By Mouth, Daily in AM, # 30 tablet, Refills 0, Tot. Refills 0, Maintenance, 12/31/21 9:24:00 EDT, Route to Pharmacy Electronically, [facility]/pharmacy #[id number], Partial fill upon [...] Active LTSS Andree Dhaliwal [facility] [phone] Confirmed Active Prediabetes Confirmed Active Itching of male genitalia Confirmed Active Encounter for screening colonoscopy Confirmed Active Social History Social History Type Response Smoking Status Never (less than 100 in lifetime) entered on: 10/27/21 Sex Patient Care team information Care Team Personnel Name: Rob Rubin NP Position: [facility] Associate Professional Member Role: PCP Address: Address: [address] [place] [address] Name: Hali Gage RN Position: [facility] RN Member Role: Primary Care Nurse Name: Oliva Richey RN Position: [facility] RN Member Role: Primary Care Nurse Name: Alex Dolan RN Position: [facility] SN RN Member Role: Primary Care Nurse Name: Erica Alanis RN Position: S RN Member Role: Primary Care Nurse Name: Shantel Freeman RN Position: S RN Member Role: Primary Care Nurse Name: Janelle Browne RN Position: [facility] RN Supv Member Role: Primary Care Nurse Name: Mari Jack RN Position: S RN Member Role: Primary Care Nurse Name: Roshni Kenny RN Position: S RN Member Role: Primary Care Nurse Care Team Related Persons Name: NEGRITO MEJIA Address: home [address] [place] [address] Name: TAQUERIA MURILLO Address: home [address] [place] [address] Name: TAQUERIA MURILLO Address: home [address] [place] [address]
--- OUTSIDE RECORDS SUMMARY | 2023-04-23 14:03 | XMS_ITS | Continuity of Care Document ---
Author Name Unknown Organization [facility] Address [address] [place] [address]- Care Team Providers Care Mortgage Coordinator Name Role Phone Scottie PACK, Rob Primary Care Physician [phone] Encounter [facility] Date(s): 09/15/22 - 11/04/[address] [address]- Attending Physician: Not on Staff, Attending MD Allergies, Adverse Reactions, Alerts No Known Allergies Immunizations Given and Recorded Vaccine Date Status Refusal Reason tetanus/diphtheria/pertussis, acel(Tdap) 09/18/15 Given Medications albuterol 0.083% inhalation solution 3 mL = 2.5 mg, Inhalation, Every 6 hours, PRN for wheezing, # 60 each, 3 Refills, Maintenance, 07/30/22 12:34:00 EST, [facility], [id number], instructions in Samoan please, 182.88, cm, 07/30/22 10:06:00 EST, Height, [...] 12:34:00 EST, Aerosol, Route to Pharmacy Electronically, [id number], [facility]/pharmacy #[id number], instructions in chinese please, 18... Start Date: 07/30/22 Status: Ordered [...] 1 Refills, Maintenance, 09/15/22 17:27:00 EDT, Tablet, [facility] #[id number], Partial fill upon patient request if the [...] 11/04/22 14:48:00 EDT, Route to Pharmacy Electronically, [facility] #[id number], Partial fill upon patient request if the prescription is for a... Start Date: 11/04/22 Stop Date: 03/04/23 Status: Ordered sertraline 100 mg oral tablet 1 tablet = 100 mg, By Mouth, Daily, para la presion, # 90 tablet, 1 Refills, Maintenance, 09/15/22 17:27:00 EDT, Tablet, [facility] #[id number], to replace 50mg, 182.88, cm, 09/15/22 16:16:00 [...] use disorder Confirmed Active LTSS Andree Dhaliwal [facility] [phone] Confirmed Active Prediabetes Confirmed Active Itching of male genitalia Confirmed Active Encounter for screening colonoscopy Confirmed Active Social History Social History Type Response Smoking Status Never (less than 100 in lifetime) entered on: 10/27/21 Sex Patient Care team information Care Team Personnel Name: Rob Rubin NP Position: [facility] Associate Professional Member Role: PCP Address: Address: [address] [place] [address] Name: Hali Gage RN Position: [facility] RN Member Role: Primary Care Nurse Name: Oliva Richey RN Position: S RN Member Role: Primary Care Nurse Name: Alex Dolan RN Position: [facility] SN RN Member Role: Primary Care Nurse Name: Erica Alanis RN Position: S RN Member Role: Primary Care Nurse Name: Shantel Freeman RN Position: S RN Member Role: Primary Care Nurse Name: Janelle Browne RN Position: [facility] RN Supv Member Role: Primary Care Nurse Name: Mari Jack RN Position: S RN Member Role: Primary Care Nurse Name: Roshni Kenny RN Position: S RN Member Role: Primary Care Nurse Care Team Related Persons Name: NEGRITO MEJIA Address: home [address] [place] [address] Name: TAQUERIA MURILLO Address: home [address] [place] [address] Name: TAQUERIA MURILLO Address: home [address] [place] [address]
--- OUTSIDE RECORDS SUMMARY | 2023-04-23 14:04 | XMS_ITS | Continuity of Care Document ---
Author Name Unknown Organization [facility] Address [address] [place] [address]- Care Team Providers Care Litigation Assistant Name Role Phone Rob Rubin NP Primary Care Physician Encounter [facility] Date(s): 01/18/23 - 04/09/[address] [address] Attending Physician: Not on Staff, Attending MD Referring Physician: Rob Rubin NP Allergies, Adverse Reactions, Alerts No Known Allergies Immunizations Given and Recorded Vaccine Date Status Refusal Reason tetanus/diphtheria/pertussis, acel(Tdap) 09/18/15 Given Medications albuterol 0.083% inhalation solution 3 mL = 2.5 mg, Inhalation, Every 6 hours, PRN for wheezing, # 60 each, 3 Refills, Maintenance, 07/30/22 12:34:00 EST, Solution, [id number], instructions in Malian please, 182.88, cm, 07/30/22 10:06:00 EST, Height, [...] 12:34:00 EST, Aerosol, Route to Pharmacy Electronically, [id number], [facility]/pharmacy #[id number], instructions in turks and caicos islander please, 18... Start Date: 07/30/22 Status: Ordered ARIPiprazole 5 mg oral tablet 1, tablet, By Mouth, Daily, # 90 tablet, Refills 1, Maintenance, 03/17/23 21:05:00 EDT, Route to Pharmacy Electronically, [facility][id number], 178, cm, 03/17/23 11:44:00 EDT, Height, 108.7, [...] 11/03/21 13:44:00 EDT, Route to Pharmacy Electronically, [facility]/pharmacy #[id number], Partial fill upon patient request if the prescription is for a schedule II... Start Date: 11/03/21 Status: Ordered hydrochlorothiazide-lisinopril 12.5 mg-20 mg oral tablet 1 tablet, By Mouth, Daily, para la presion, # 90 tablet, 1 Refills, Maintenance, 01/18/23 10:53:00 EDT, Tablet, [facility] #[id number], Partial fill upon patient request if the [...] Acute 04/12/23 15:01:00 EST, 03/29/2315:01:00 EST, Cream, [facility] #[id number], P... Start Date: 03/29/23 Stop Date: 04/12/23 Status: Ordered loratadine 10 mg oral tablet 10 mg, 1, tablet, By Mouth, Daily, # 30 tablet, Refills 1, Tot. Refills 1, Maintenance, 03/29/23 14:55:00 EST, Route to Pharmacy Electronically, [facility] #[id number], Partial fill upon patientrequest if the prescription [...] 0 Refills, Soft Stop, 01/18/23 10:46:00 EDT, [facility] #[id number], Partial fill upon patient request if the [...] Refills, Maintenance, 01/18/23 10:53:00 EDT, CR Tablet, [facility] #[id number], please write all of this patient's medication in Malian, 178, cm, 01/18/23 9:57:00 EDT, Height, 110, kg, 01/06/23 1... Start Date: 01/18/23 Stop Date: 10/15/23 Status: Ordered SEROquel 100 mg oral tablet 100 mg, 1, tablet, By Mouth, Daily, para dormir, # 90 tablet, Refills 1, Tot. Refills 1, Maintenance, 01/18/23 10:53:00 EDT, Route to Pharmacy Electronically, [facility] #[id number], Partial fill upon patient request if the prescription is for a... Start Date: 01/18/23 Stop Date: 07/17/23 Status: Ordered sertraline 100 mg oral tablet 1 tablet = 100 mg, By Mouth, Daily, para la presion, # 90 tablet, 1 Refills, Maintenance, 09/15/22 17:27:00 EDT, Tablet, [facility] #[id number], to replace 50mg, 182.88, cm, 09/15/22 16:16:00 EDT, Height, 106.6, kg, 07/08/22 8:56:00 EST, Dry Weight Start Date: 09/15/22 Stop Date: 03/14/23 Status: Ordered Vitamin B-12 100 mcg oral tablet 100 mcg, 1, tablet, By Mouth, Daily in AM, # 30 tablet, Refills 0, Tot. Refills 0, Maintenance, 12/31/21 9:24:00 EDT, Route to Pharmacy Electronically, [facility]/pharmacy #[id number], Partial fill upon [...] Opioid use disorder Confirmed Active LTSS Andree Madhuri [facility] [phone] Confirmed Active Prediabetes Confirmed Active Itching of [...] Associate Professional Member Role: PCP Address: Address: [address] [place] [address] Name: Hali Gage RN Position: [facility] RN Member Role: Primary Care Nurse Name: Oliva Richey RN Position: [facility] RN Member Role: Primary Care Nurse Name: Alex Dolan RN Position: [facility] SN RN Member Role: Primary Care Nurse Name: Erica Alanis RN Position: [facility] RN Member [...] Team Related Persons Name: ROBERTO NEGRITO Address: home [address] [place] [address] Name: TAQUERIA MURILLO Address: home [address] [place] [address] Name: TAQUERIA MURILLO Address: home [address] [place] [address]
--- OUTSIDE RECORDS SUMMARY | 2023-04-23 14:04 | XMS_ITS | Continuity of Care Document ---
Author Name Unknown Organization [facility] Address [address] [place] [address]- Care Team Providers Care Bilingual Teacher Name Role Phone Scottie PACK, Rob Primary Care Physician Encounter [facility] Date(s): 01/08/23 - 02/18/[address] [address] Attending Physician: Vaishali Grajeda MD Admitting Physician: Vaishali Grajeda MD Allergies, Adverse Reactions, Alerts No Known Allergies Immunizations Given and Recorded Vaccine Date Status Refusal Reason tetanus/diphtheria/pertussis, acel(Tdap) 09/18/15 Given Medications albuterol 0.083% inhalation solution 3 mL = 2.5 mg, Inhalation, Every 6 hours, PRN for wheezing, # 60 each, 3 Refills, Maintenance, 07/30/22 12:34:00 EST, Solution, [id number], instructions in Cuban please, 182.88, cm, 07/30/22 10:06:00 EST, Height, [...] 12:34:00 EST, Aerosol, Route to Pharmacy Electronically, [id number], [facility]/pharmacy #[id number], instructions in tongan please, 18... Start Date: 07/30/22 Status: Ordered ARIPiprazole 5 mg oral tablet 5 mg, 1, tablet, By Mouth, Daily, # 90 tablet, Refills 0, Tot. Refills 0, Maintenance, 01/18/23 10:52:00 EDT, Route to Pharmacy Electronically, [facility] #[id number], Partial fill upon patient request if the [...] 11/03/21 13:44:00 EDT, Route to Pharmacy Electronically, [facility]/pharmacy #[id number], Partial fill upon patient request if the prescription is for a schedule II... Start Date: 11/03/21 Status: Ordered hydrochlorothiazide-lisinopril 12.5 mg-20 mg oral tablet 1 tablet, By Mouth, Daily, para la presion, # 90 tablet, 1 Refills, Maintenance, 01/18/23 10:53:00 EDT, Tablet, [facility] #[id number], Partial fill upon patient request if the [...] 0 Refills, Soft Stop, 01/18/23 10:46:00 EDT, [facility] #[id number], Partial fill upon patient request if the [...] Refills, Maintenance, 01/18/23 10:53:00 EDT, CR Tablet, [facility] #[id number], please write all of this patient's medication in Cuban, 178, cm, 01/18/23 9:57:00 EDT, Height, 110, kg, 01/06/23 1... Start Date: 01/18/23 Stop Date: 10/15/23 Status: Ordered SEROquel 100 mg oral tablet 100 mg, 1, tablet, By Mouth, Daily, para dormir, # 90 tablet, Refills 1, Tot. Refills 1, Maintenance, 01/18/23 10:53:00 EDT, Route to Pharmacy Electronically, [facility] #[id number], Partial fill upon patient request if the prescription is for a... Start Date: 01/18/23 Stop Date: 07/17/23 Status: Ordered sertraline 100 mg oral tablet 1 tablet = 100 mg, By Mouth, Daily, para la presion, # 90 tablet, 1 Refills, Maintenance, 09/15/22 17:27:00 EDT, Tablet, [facility] #[id number], to replace 50mg, 182.88, cm, 09/15/22 16:16:00 EDT, Height, 106.6, kg, 07/08/22 8:56:00 EST, Dry Weight Start Date: 09/15/22 Stop Date: 03/14/23 Status: Ordered Vitamin B-12 100 mcg oral tablet 100 mcg, 1, tablet, By Mouth, Daily in AM, # 30 tablet, Refills 0, Tot. Refills 0, Maintenance, 12/31/21 9:24:00 EDT, Route to Pharmacy Electronically, [facility]/pharmacy #[id number], Partial fill upon patient request [...] Confirmed Active LTSS Andree Dhaliwal [facility] [phone] Confirmed Active Prediabetes Confirmed Active Itching of male genitalia Confirmed Active Encounter for screening colonoscopy Confirmed Active Social History Social History Type Response Smoking Status Never (less than 100 in lifetime) entered on: 10/27/21 Sex Patient Care team information Care Team Personnel Name: Rob Rubin NP Position: [facility] Associate Professional Member Role: PCP Address: Address: [address] [place] [address] Name: Oliva Richey RN Position: S RN [...] Browne RN Position: [facility] RN Member Role: Primary Care Nurse Name: Mari Jack RN Position: [facility] RN Member Role: Primary Care Nurse Name: Red Mahmood RN Position: [facility] RN Member Role: Primary Care Nurse Name: Roshni Kenny RN Position: [facility] RN Member Role: Primary Care Nurse Care Team Related Persons Name: NEGRITO MEJIA Address: home [address] [place] [address] Name: TAQUERIA MURILLO Address: home [address] [place] [address] Name: TAQUERIA MURILLO Address: home [address] [place] [address]
--- OUTSIDE RECORDS SUMMARY | 2023-04-23 14:04 | XMS_ITS | Patient Health Record ---
Author Name Unknown Organization [facility] Address [address] [place] [id number] Care Team Providers Care Buttermilk Drier Operator Name Role Phone ALIS Baez Primary Care Provider Brent Sesay Unavailable [phone] REASON FOR REFERRAL No Information SOCIAL HISTORY Sex Assigned At : Social History Observation Description Sex Assigned At Unknown Encounters Encounter Location Date Provider Diagnosis [facility] [address] [place] [address] [phone] 04/29/2022 Brent Ventura [facility] [address] [place] [address] [id number] 05/07/2022 Brent Ventura [facility] [address] [place] [address] [id number] 05/12/2022 Brent Aldrichacho [facility] [address] [place] [address] [id number] 06/16/2022 Brent Ventura [facility] [address] [place] [address] [id number] 06/03/2022 Brent Aldrichacho [facility] [address] [place] [address] [id number] 06/17/2022 Brent Ventura [facility] [address] [place] [address] [id number] 09/15/2022 Brent Aldrichacho [facility] [address] [place] [address] [id number] 01/26/2023 Brent Aldrichacho [facility] [address] [place] [address] [id number] 02/01/2023 Brent Aldrichacho [facility] [address] [place] [address] [id number] 02/12/2023 Brent Ventura [facility] [address] [place], [place] [phone] 02/23/2023 Brent Aldrichacho [facility] [address] [place], [place] [phone] 03/02/2023 Brent Ventura [facility] [address] [place] [address] [id number] 03/23/2023 Brent Aldrichacho [facility] [address] [place] [address] [phone] 03/30/2023 Brent Aldrichacho [facility] [address] [place] [address] [id number] 03/29/2023 Brent Ventura [facility] [address] [facility] [place] [phone] 05/27/2022 Brent Mendezo [facility] [address] [place] [address] [phone] 09/15/2022 Brent Aldrichacho [facility] [address] [place] [address] [id number] 02/10/2023 Brent Aldrichacho [facility] [address] [place] [address] [id number] 02/16/2023 Brent Aldrichacho [facility] [address] [place] [address] [id number] 03/16/2023 Brent Aldrichacho [facility] [address] [place] [address] [id number] 03/31/2023 Brent Aldrichacho [facility] [address] [place] [address] [id number] 04/22/2023 Brent Ventura PLAN OF TREATMENT Next Appt Details Provider Name:Brent Ventura, 04/29/2023 11:00:00 AM, [facility], [address] [place] [address], [phone], Insurance Providers Payer Name Payer Address Payer Phone Subscriber Number Group Number Insured Name Patient Relationship to Insured Coverage Start Date Coverage End Date [place] Standard [address] [place] [address] [phone] [employer] Self - patient is the insured
--- OUTSIDE RECORDS SUMMARY | 2023-04-23 14:04 | XMS_ITS | Continuity of Care Document ---
Author Name Unknown Organization [facility] Address [address] [place] [address]- Care Team Providers Care License Clerk Name Role Phone Rob Rubin NP Primary Care Physician [phone] [place] [facility] [place] 07/05/22 - 09/07/22 [facility] [address] [place] [address]- Discharge Disposition: A-D/C Home Attending Physician: Tomas LOMELI(Hem/Onc), Joseph Frias Admitting Physician: Jose Manuel LOMELI, Krystal Jackson Referring Physician: Rob Rubin NP Allergies, Adverse Reactions, Alerts No Known Allergies Immunizations Given and Recorded Vaccine Date Status Refusal Reason tetanus/diphtheria/pertussis, acel(Tdap) 09/18/15 Given Medications albuterol 0.083% inhalation solution 3 mL = 2.5 mg, Inhalation, Every 6 hours, PRN for wheezing, # 60 each, 3 Refills, Maintenance, 07/30/22 12:34:00 EST, [facility], [id number], instructions in American please, 182.88, cm, 07/30/22 10:06:00 EST, Height, [...] 12:34:00 EST, Aerosol, Route to Pharmacy Electronically, [id number], [facility]/pharmacy #[id number], instructions in jamaican please, 18... Start Date: 07/30/22 Status: Ordered ARIPiprazole 5 mg oral tablet 5 mg, 1, tablet, By Mouth, Daily, # 30 tablet, Refills 0, Tot. Refills 0, Maintenance, 11/03/21 13:43:00 EDT, Route to Pharmacy Electronically, [facility]/pharmacy #[id number], Partial fill upon [...] 11/03/21 13:44:00 EDT, Route to Pharmacy Electronically, [facility]/pharmacy #[id number], Partial fill upon patient request if the prescription is for a schedule II... Start Date: 11/03/21 Status: Ordered ibuprofen 400 mg oral tablet 400 mg, 1, tablet, By Mouth, Every 6 hours, PRN, # 60 tablet, Refills 0, Tot. Refills 0, Acute 09/20/22 12:39:00 EDT, for pain, 07/30/22 12:33:00 EST, Route to Pharmacy Electronically, [facility]/pharmacy #[id number], instructions in American please, 182.88, cm, 03... Start Date: 07/30/22 Stop Date: 09/20/22 Status: Ordered lisinopril 20 mg oral tablet 20 mg, 1, tablet, By Mouth, Daily, # 90 tablet, Refills 1, Tot. Refills 1, Maintenance, 05/27/22 11:13:00 EST, [id number], Partial fill upon patient request if the [...] 12:40:00 EDT, 07/30/22 12:34:00 EST, REC Powder, [id number], instructions in American please,... Start Date: 07/30/22 Stop Date: 09/20/22 Status: Ordered MiraLax oral powder for reconstitution = 17 Gm, By Mouth, Daily, PRN Constipation, dissolve in 8 oz water before taking, # 255 Gm, 3 Refills, Acute 09/20/22 12:38:00 EDT, 07/30/22 12:34:00 EST, REC Powder, [id number], instructionsin American please, 17 Gm By Mouth Daily,PRN:Constip... Start [...] Refills, Maintenance, 05/27/22 11:13:00 EST, CR Tablet, [facility]/pharmacy #[id number], Partial fill upon patient request [...] 07/30/22 12:34:00 EST, Route to Pharmacy Electronically, [facility]/pharmacy #2339 Tablet, instructions in American p... Start Date: 07/30/22 Stop Date: 09/20/22 Status: Ordered SEROquel 50 mg oral tablet 1 tablet = 50 mg, By Mouth, Daily, use at bedtime to help with sleep stop taking trazodone, # 30 tablet, 2 Refills, Maintenance, 07/30/22 13:05:00 EST, Tablet, [facility]/pharmacy #[id number], instructions in jamaican please, 182.88, cm, 07/30/22 10:06:00 EST, H... Start Date: 07/30/22 Stop Date: 10/28/22 Status: Ordered sertraline 100 mg oral tablet 1 tablet = 100 mg, By Mouth, Daily, # 90 tablet, 0 Refills, Maintenance, 04/30/22 15:10:00 EST, Tablet, [facility]/pharmacy #[id number], to replace 50mg, 182.88, cm, 04/30/22 14:42:00 EST, Height, 104.4, kg, 12/24/21 19:20:00 EDT, Dry Weight Start Date: 04/30/22 Stop Date: 07/29/22 Status: Ordered Vitamin B-12 100 mcg oral tablet 100 mcg, 1, tablet, By Mouth, Daily in AM, # 30 tablet, Refills 0, Tot. Refills 0, Maintenance, 12/31/21 9:24:00 EDT, Route to Pharmacy Electronically, [facility]/pharmacy #[id number], Partial fill upon [...] Confirmed Active Obese class I Confirmed Active Prediabetes Confirmed Active Itching of male genitalia Confirmed Active Encounter for screening colonoscopy Confirmed Active Vital Signs Most recent to oldest [Reference Range]: 1 Height 182.88 cm (07/08/22 8:56 AM) Weight 106.6 kg (07/08/22 8:56 AM) Oxygen Saturation [94-100 %] 96 % (07/08/22 8:56 AM) Pulse Rate [55-90 bpm] 74 bpm (07/08/22 8:56 AM) Body Mass Index [18.5-24.99 kg/m2] 31.87 kg/m2 *>HHI* (07/08/22 8:56 AM) Blood Pressure [90-138/55-84 mm Hg] 159/ 84mm Hg *H* (07/08/22 8:56 AM) Temperature [96.8-100.4 DegF] 98.2 DegF (07/08/22 8:56 AM) Mode of Delivery (Oxygen) Room air (07/08/22 8:56 AM) Blood pressure sites Arm, right (07/08/22 8:56 AM) Temperature Route Oral (07/08/22 8:56 AM) Dry Weight 106.6 kg (07/08/22 8:56 AM) Weight Obtained Via Standing scale (07/08/22 8:56 AM) Dry Weight Obtained Via Standing scale (07/08/22 8:56 AM) Social History Social History Type Response Smoking Status Never (less than 100 in lifetime) entered on: 10/27/21 Sex Note * Arsalan Hannah MA: PERFORM, SIGN, VERIFY Event Display: Patient Education/Instruction Authored Date: [id number] [facility] *Heme/Onc Adult Clinical Summary Name ELENA MEJIA Age 56 Years 1965 PCP Scottie ORNAMENTAL RAIL INSTALLER, Rob PCP Visit Date 07/05/2022 09:22:00 Additional Instructions: Scheduled Appointments?? Future Appointments ?No Future Appointments Scheduled Follow-Up Instructions ?? Diagnosis Medications: Please continue your medications until treatment is completed or stopped by your provider. Discuss any questions related to medications with your provider. Medications to Continue with No Changes These medications were not printed or sent to your pharmacy Albuterol (albuterol 90 mcg/inh inhalation powder) 2 puff(s) Inhalation every 4 hours as needed. with spacer chamber take 2-6 puffs every 4 hours for 1 day then as needed. Refills: 4. Next Dose: Aripiprazole (ARIPiprazole 5 mg oral tablet) 1 tab(s) Oral Daily. Refills: 0. Next Dose: Cyanocobalamin (Vitamin B-12 100 mcg oral tablet) 1 tab(s) Oral Daily in the morning. Refills: 0. Next Dose: Durable Medical Equipment (Compression Stockings) surgical, calf length 20-30 mm Hg. Refills: 0. Next Dose: Gabapentin (gabapentin 300 mg oral capsule) 1 capsule Oral 3 times a day. Refills: 0. Next Dose: Lisinopril (lisinopril 20 mg oral tablet) 1 tab(s) Oral Daily for 90 Days. Refills: 1. Next Dose: Melatonin (Melatonin 5 mg oral tablet) 1 tab(s) Oral Daily at Bedtime as needed for insomnia. Next Dose: Omeprazole (omeprazole 20 mg oral delayed release tablet) 1 tab(s) Oral Daily for 30 Days. Refills:2. Next Dose: Quetiapine (SEROquel 50 mg oral tablet) 1 tab(s) Oral Daily for 30 Days. use at bedtime stop taking trazodone. Refills: 1. Next Dose: Sertraline (sertraline 100 mg oral tablet) 1 tab(s) Oral Daily for 90 Days. Refills: 0. Next Dose: Zolpidem (zolpidem 10 mg oral tablet) 1 tab(s) Oral Daily at Bedtime as needed as needed for insomnia. Next Dose: Allergy Info:?? NKA Medications Given This Visit Future Orders ?No future orders Vital Signs Height 182.88 cm Weight 106.6 kg BMI 31.87 kg/m2 Blood Pressure 159 mm Hg/84 mm Hg Temperature 98.2 DegF Pulse Rate 74 bpm Respiratory Rate 02 Sat Mode of Delivery 96 %/Room air You can now view a summary of your hospital visit from the comfort of your home through a free online portal called [employer]. [employer] is a website that allows you to securely view your medical information including discharge summary, medications and follow-up visits. ??You can alsosend a secure electronic message to your doctor???s office to request appointments, renew medications or just ask a question. You can enroll at [email or web address] or register during your next office visit. Disclaimer:?? The information provided is of a general nature and is intended to be used in conjunction with the recommendations and advice of your health care practitioner. ??Every effort has been made to ensure that the information provided is accurate and complete at the time it is provided to you however, as your needs change, or, as new ??information becomes available, different or additional instructions may be required. If you have questions, please consult with your primary care provider or pharmacist, as appropriate. ??This information is not intended to serve as substitution for assessment and evaluation by a qualified health care provider. If you do not have a primary care provider, you may find a [facility] provider by calling [facility] [employer] [facility] at [phone]. For information about the plan of care including goals and instructions for your diagnosis, please see the patient education orders section of this document. Patient Education Materials?? The content of this educational material or handout may have been modified, supplemented, or adapted from its original content and format to support your individualized medical care. Patient Care team information Care Team Personnel Name: Rob Rubin NP Position: [facility] Associate Professional Member Role: PCP Address: Address: [address] [place] [address] Name: Hali Gage RN Position: [facility] RN Member Role: Primary Care Nurse Name: Oliva Richey RN Position: [facility] RN Member Role: Primary Care Nurse Name: Alex Dolan RN Position: [facility] SN RN Member Role: Primary Care Nurse Name: Erica Alanis RN Position: [facility] RN Member Role: Primary Care Nurse Name: Shantel Freeman RN Position: S RN Member Role: Primary Care Nurse Name: Janelle Browne RN Position: [facility] RN Supv Member Role: Primary Care Nurse Name: Mari Jack RN Position: S RN Member Role: Primary Care Nurse Name: Shazia Jorgensen RN Position: S RN Member Role: Primary Care Nurse Name: Roshni Kenny RN Position: S RN Member Role: Primary Care Nurse Care Team Related Persons Name: NEGRITO MEJIA Address: home [address] [place] [address] Name: TAQUERIA MURILLO Address: home [address] [place] [address] Name: TAQUERIA MURILLO Address: home [address] [place] [address]
--- OUTSIDE RECORDS SUMMARY | 2023-04-23 14:04 | XMS_ITS | Continuity of Care Document ---
Author Name Unknown Organization [facility] Address [address] [place] [address]- Care Team Providers Care Information Systems Manager Name Role Phone Rob Rubin NP [id number] Date[facility]s): 06/16/22 - 07/23/[address] [address]- Attending Physician: Vaishali Grajeda MD Admitting Physician: [...] Refills, Maintenance, 11/03/21 13:43:00 EDT, Powder, [facility]/pharmacy #[id number], 2 puffs Inhalation Every 4 hours,PRN:as... Start Date: 11/03/21 Status: Ordered ARIPiprazole 5 mg oral tablet 5 mg, 1, tablet, By Mouth, Daily, # 30 tablet, Refills 0, Tot. Refills 0, Maintenance, 11/03/21 13:43:00 EDT, Route to Pharmacy Electronically, [facility]/pharmacy #[id number], Partial fill upon patient request if [...] schedule II... Start Date: 11/03/21 Status: Ordered lisinopril 20 mg oral tablet [...] opioid drug. Start Date: 01/01/22 Status: Ordered omeprazole 20 mg oral delayed release tablet 1 tablet = 20 mg, By Mouth, Daily, # 30 tablet, 2 Refills, Maintenance, 05/27/22 11:13:00 EST, CR Tablet, [id number], Partial fill upon patient request if the prescription is for a schedule II opioid drug., 182.88, cm, 04/30/22 14:42:00 EST, H... Start Date: 05/27/22 Stop Date: 08/25/22 Status: Ordered SEROquel 50 mg oral tablet 1 tablet = 50 mg, By Mouth, Daily, use at bedtime stop taking trazodone, # 30 tablet, 1 Refills, Maintenance, 04/30/22 15:18:00 EST, Tablet, [id number], Partial fill upon patient request if the prescription is for a schedule II opioid drug.... Start Date: 04/30/22 Stop Date: 06/29/22 Status: Ordered sertraline 100 mg oral tablet 1 tablet = 100 mg, By Mouth, Daily, # 90 tablet, 0 Refills, Maintenance, 04/30/22 15:10:00 EST, Tablet, [facility]/pharmacy #[id number], to replace 50mg, 182.88, cm, 04/30/22 14:42:00 EST, Height, 104.4, kg, 12/24/21 19:20:00 EDT, Dry Weight Start Date: 04/30/22 Stop Date: 07/29/22 Status: Ordered Vitamin B-12 100 mcg oral tablet 100 mcg, 1, tablet, By Mouth, Daily in AM, # 30 tablet, Refills 0, Tot. Refills 0, Maintenance, 12/31/21 9:24:00 EDT, Route to Pharmacy Electronically, [facility]/pharmacy #[id number], Partial fill upon patient request if the prescription is for a schedule II opio... Start Date: 12/31/21 Status: Ordered zolpidem 10 mg oral tablet 1 tablet = 10 mg, By Mouth, Daily at bedtime, PRN as needed for insomnia, 0 Refills, Maintenance, 01/01/22 12:47:00 EDT, Tablet, Partial fill upon patient request if the prescription is for a schedule II opioid drug. Start Date: 01/01/22 Status: Ordered Problem List Condition Confirmation Course Effective Dates Status Health St [facility] Informant Anxiety Confirmed Active Asthma Confirmed Active [...] Team Personnel Name: Rob Rubin NP Position: [facility] Associate Professional Member Role: PCP Address: Address: [address] [place] [address] Name: Hali Gage RN Position: S RN Member Role: Primary Care Nurse Name: Oliva Richey RN Position: S RN Member Role: Primary Care Nurse Name: Alex Dolan RN Position: [facility] SN RN Member Role: Primary Care Nurse Name: Erica Alanis RN Position: [facility] RN Member Role: Primary Care Nurse Name: Shantel Freeman RN Position: [facility] RN Member Role: Primary Care Nurse Name: Janelle Browne RN Position: [facility] RN Supv Member Role: Primary Care Nurse Name: Mari Jack RN Position: [facility] RN Member Role: Primary Care Nurse Name: Shazia Jorgensen RN Position: [facility] RN Member Role: Primary Care Nurse Name: Roshni Kenny RN Position: [facility] RN Member Role: Primary Care Nurse Care Team Related Persons Name: NEGRITO MEJIA Address: home [address] [place] [address] Name: TAQUERIA MURILLO Address: home [address] [place] [address] Name: TAQUERIA MURILLO Address: home [address] [place] [address]
--- OUTSIDE RECORDS SUMMARY | 2023-04-23 14:04 | XMS_ITS | Continuity of Care Document ---
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 Name Role Phone Scottie PACK, Rob Primary Care Physician [phone] Encounter [facility] Date(s): 01/06/23 - 01/06/[address] [address]- Encounter Diagnosis Opiate overdose(Final) - 01/06/23 Seizure(Final) - 01/06/23 Pulmonary edema(Final) - 01/06/23 Discharge Disposition: A-D/C Home Attending Physician: Aby Rodriguez DO Admitting Physician: Aby Rodriguez DO Referring Physician: Not on Staff, Referring MD Allergies, Adverse Reactions, Alerts No Known Allergies Immunizations Given and Recorded Vaccine Date Status Refusal Reason tetanus/diphtheria/pertussis, acel(Tdap) 09/18/15 Given Medications albuterol 0.083% inhalation solution 3 mL = 2.5 mg, Inhalation, Every 6 hours, PRN for wheezing, # 60 each, 3 Refills, Maintenance, 07/30/22 12:34:00 EST, Solution, [id number], instructions in Bahamian please, 182.88, cm, 07/30/22 10:06:00 EST, Height, [...] 12:34:00 EST, Aerosol, Route to Pharmacy Electronically, [id number], [facility]/pharmacy #[id number], instructions in kiswahili please, 18... Start Date: 07/30/22 Status: Ordered ARIPiprazole 5 mg oral tablet 5 mg, 1, tablet, By Mouth, Daily, # 30 tablet, Refills 0, Tot. Refills 0, Maintenance, 11/03/21 13:43:00 EDT, Route to Pharmacy Electronically, [facility]/pharmacy #[id number], Partial fill upon patient request if [...] EDT, Route to Pharmacy Electronically, [facility]/pharmacy #[id number], Partial fill upon patient request if the prescription is for a schedule II... Start Date: 11/03/21 Status: Ordered hydrochlorothiazide-lisinopril 12.5 mg-20 mg oral tablet 1 tablet, By Mouth, Daily, para la presion, # 90 tablet, 1 Refills, Maintenance, 09/15/22 17:27:00 EDT, Tablet, [facility] #[id number], Partial fill upon patient request if the [...] 05/27/22 11:13:00 EST, CR Tablet, [facility]/pharmacy #[id number], Partial fill upon patient request if the prescription is for a schedule II opioid drug., 182.88, cm, 04/30/22 14:42:00 EST, H... Start Date: 05/27/22 Stop Date: 08/25/22 Status: Ordered SEROquel 100 mg oral tablet 100 mg, 1, tablet, By Mouth, Daily, para dormir, # 30 tablet, Refills 3, Tot. Refills 3, Maintenance, 11/04/22 14:48:00 EDT, [id number], Partial fill upon patient request if the prescription is for a... Start Date: 11/04/22 Stop Date: 03/04/23 Status: Ordered sertraline 100 mg oral tablet 1 tablet = 100 mg, By Mouth, Daily, para la presion, # 90 tablet, 1 Refills, Maintenance, 09/15/22 17:27:00 EDT, Tablet, [facility] #[id number], to replace 50mg, 182.88, cm, 09/15/22 16:16:00 EDT, Height, 106.6, kg, 07/08/22 8:56:00 EST, Dry Weight Start Date: 09/15/22 Stop Date: 03/14/23 Status: Ordered Vitamin B-12 100 mcg oral tablet 100 mcg, 1, tablet, By Mouth, Daily in AM, # 30 tablet, Refills 0, Tot. Refills 0, Maintenance, 12/31/21 9:24:00 EDT, Route to Pharmacy Electronically, [facility]/pharmacy #[id number], Partial fill upon patient request if the [...] use disorder Confirmed Active LTSS Andree Madhuri [facility] [phone] Confirmed Active Prediabetes Confirmed Active Itching of male genitalia Confirmed Active Encounter for screening colonoscopy Confirmed Active Results Radiology Reports * Exam Date Time Procedure Performing Provider Status 01/06/23 1:45 PM Chest Portable Razia Ceballos; Auth (Verified) Notes: (Chest Portable) Reason For Exam: Shortness of Breath RESULT: Chest Portable Chest Portable Reason: Shortness of Breath; Clinical Question(s): CHF COMPARISON: 10/06/2018. FINDINGS: LINES AND TUBES: None. LUNGS AND PLEURA: Diminished lung volumes with indistinct central pulmonary vasculature. No significant pleural effusion. No pneumothorax. HEART, MEDIASTINUM AND MYRA: Heart is normal in size. Normal mediastinal and hilar contour. BONES AND SOFT TISSUES: No acute abnormality. IMPRESSION: Central pulmonary vascular congestion without overt signs of pulmonary edema. I have personally reviewed the images and I agree with this report. WSN: [id number] Ordering Physician: Benito Strange Dictated By: Bradley Jovel DO Dictated Date/Time: 01/06/23 2:25 pm Reviewed By: Gil Verde MD, V Signed By: Gil Verde MD, V Signed Date/Time: 01/06/23 2:30 pm Transcribed By: NATALIE Transcribed Date/Time: 01/06/23 2:13 pm Vital Signs Most recent to oldest [Reference Range]: 1 2 3 4 Height 178 cm (01/06/23 1:54 PM) Weight 110 kg (01/06/23 1:54 PM) Oxygen Saturation [94-100 %] 98 % (01/06/23 5:18 PM) 99 % (01/06/23 2:35 PM) 89 % *L* (01/06/23 1:54 PM) 94 % (01/06/23 1:54 PM) Pulse Rate [55-90 bpm] 66 bpm (01/06/23 5:18 PM) 67 bpm (01/06/23 2:35 PM) 83 bpm (01/06/23 1:54 PM) Blood Pressure [90-138/55-84 mm Hg] 158/88mm Hg *H* (01/06/23 5:18 PM) 167/84mm Hg *H* (01/06/23 2:35 PM) 181/95mm Hg *H* (01/06/23 1:54 PM) Respiratory Rate [16-30 br/min] 19 br/min (01/06/23 5:18 PM) 18 br/min (01/06/23 2:35 PM) 19 br/min (01/06/23 1:54 PM) Temperature [96.8-100.4 DegF] 98.5 DegF (01/06/23 5:18 PM) 98.4 DegF (01/06/23 1:54 PM) Liters per Minute 2 L/min (01/06/23 5:18 PM) 2 L/min (01/06/23 2:35 PM) 4 L/min (01/06/23 1:54 PM) 4 L/min (01/06/23 1:54 PM) Mode of Delivery (Oxygen) Room air (01/06/23 5:18 PM) Nasal cannula (01/06/23 2:35 PM) Nasal cannula (01/06/23 1:54 PM) Nasal cannula (01/06/23 1:54 PM) Temperature Route Axillary (01/06/23 5:18 PM) Axillary (01/06/23 1:54 PM) Dry Weight 110 kg (01/06/23 1:54 PM) Social History Social History Type Response Smoking Status Never (less than 100 in lifetime) entered on: 10/27/21 Sex EKG study * Event Display: ECG 12-Lead Authored Date: Please click on pdf link to open report * Event Display: ECG 12-Lead Authored Date: Ventricular Rate: 83 BPM Atrial Rate: 83 BPM P-R Interval: 166 ms QRS Duration: 90 ms Q-T Interval: 380 ms QTC Calculation(Bazett): 446 ms P Kennard: 30 degrees R Kennard: 65 degrees T Kennard: 24 degrees Normal sinus rhythm Normal ECG When compared with ECG of 30-JUL-2022 12:54, QT has lengthened Confirmed by PATRICK DONOHUE MD ([id number]) on 01/06/2023 9:17:19 PM [place]: PATRICK DONOHUE MD Note * Timothy Torres MD: PERFORM Event Display: Patient Education Leaflets Authored Date: [id number] [facility] - Shelters ?? 35 [facility] Emergency Department Community Half-Way Directory ?? EMERGENCY Shelters Important: Alcohol and drugs are absolutely forbidden in all shelters. ?? [facility] Half-Way ([facility]) [address] [place] [address] Adult men and women only- no children 3 meals day served-health care and dental clinic Referral: Walk-ins are accepted/ phone calls are preferred ?? [facility] Emergency Half-Way [address] [place], [place] [phone] Men only- Yazidism based emergency snf- reopening 07/2012 Referrals: Must line up by 3pm. grievance manager for intake. ?? [facility] [address] [place] [address] Adult men and women 2 meals per day/health care nurse Referral: Must contact intake by phone before coming ?? [facility] Half-Way [address] [place] [address] Adult men and women open Mar 24-September 21 3 meals day-must leave snf by 7am Referral: First come, first serve line up begins at 5:30pm ?? [facility] Emergency Half-Way [address] [place], [place] [phone] Adult men and women (one room for families with children) Referral: First come, first serve lineup begins at 3:30pm ?? [facility] [address] [place], [place]?? [address] Men only Referral:?? $300.00/month fee (1st??month kim period available) ?? [facility] [address] [place], [place]?? [address] Men only ?? [facility] [place] [address] [facility] ?? [place], [place] [phone] Women and children ?? [facility] Half-Way [facility] [address] [place] [address]?? Women and children ?? [facility] (relocation and support) [place], [place] (Hotline) Emergency Abuse and Rape crises support, snf ?? [facility] Rape/Domestic Violence Hotline Half-Way referral ? [facility]) [address] [place], [place]?? [address] Lunch and Dinner provided (Mon ???Sat: Noon and 5pm; Sun: 1 and 5pm) ?? Additional Half-Way Options ?? [facility] Emergency Half-Way [address] [facility] [phone] Male + [place] [address] ? [facility] [address] [phone] Male + Female Beds [facility] [address] [address] [facility] [address] [phone] ?? [facility] [address] ? [facility] Half-Way [address] [facility] [phone] ?? [facility] [address] ?[place] [facility] Half-Way [address] [facility] [phone] ?? [facility] [address] ? [facility] [address] [facility] [address] [phone] By Application Only/Must Call [facility] [address] ? [facility] [address]?? [facility] [phone] ? [facility] [address] [address] [facility] [address] [facility] [phone] ?? [facility] [address] ? [facility] Half-Way [address] [facility] [phone] ?? [place] [facility] [address] ?[facility] ?? [phone] ?[facility]? [place], [place]?? [phone]? Emergency short stay, women, men, families ? [place], [place]?? [phone] Families, adults, men, LGBTQ ? [facility]-Way?[place],??[place]?[phone]?[facility] ??[place] [address]?[phone]?[facility] [place] [phone] ?[place], [place] ??[phone] ? [address] Half-Way [place] [phone] ? [facility] [place], [place] [phone] ? [address] Half-Way WANDA Aceves [phone] ? [facility]Way Ketan Aceves [place] [phone] ?[place] [facility] ??[place] ??[phone] ? * Timothy Torres MD: PERFORM Event Display: Patient Education Leaflets Authored Date: [id number] Opiate Abuse ?? [id number] Trastorno por consumo de opi??ceos El uso o el abuso de la hero??na o de los analg??sicos recetados puede provocar adicci??n o dependencia. Algunos ejemplos de medicamentos para el dolor son la oxicodona, la code??na, la hidrocodona, la morfina, la metadona y el fentanilo. Ozzy vez que esto ocurre, se corre mayor riesgo de que sucedalo siguiente: ??? Tener deseo intenso de consumir la droga. No poder dejar de consumir la droga aunque crea que realmente quiere hacerlo. Se trata de ozzy adicci??n psicol??gica. ??? S??ntomas de abstinencia si megan de consumir la droga (dependencia f??abraham) ??? Perder el trabajo o la relaci??n con la harpreet ??? Sufrir un arresto, ser condenado y recibir ozzy meng de prisi??n por posesi??n de ozzy sustancia ilegal. O castro por conducir bajo los efectos de ozzy sustancia. ??? Lesionarse a s?? mismo o a otros accidentalmente mientras est?? bajo la influencia de la droga en un autom??portia o en parra casa ??? Perder la favian o sufrir lesiones graves por sobredosis Problemas de lexi La lista de posibles problemas de lexi es larga. Puede cambiar en funci??n de los diferentes medicamentos. Pueden causar complicaciones incluso si no tiene antecedentes de problemas de lexi. Tambi??n pueden generar interacciones con otros medicamentos que shayy. Adem??s, es posible que se jaya afectado por otras enfermedades cr??nicas que pueda tener. El abuso tiene otros efectos aparte de los que se detallan m??s arriba. Algunos de ellos est??n directamente relacionados con las drogas. Otros est??n relacionados con la adicci??n o la dependencia. ??? Ansiedad ??? Convulsiones ??? Estre??imiento ??? Infecci??n del h??gado (hepatitis) ??? Insuficiencia hep??ashish ??? Problemas con la presi??n a rterial ??? Depresi??n ??? Pensamientos o intentos de suicidio ??? Insomnio ??? N??useas, v??mitos y problemas estomacales ??? Somnolencia ??? Hablar arrastrando las palabras ??? Dificultad para respirar ??? Mareos ??? Infecciones de la piel ??? Dolor y espasmos musculares ??? Ataque o derrame cerebral ??? Ataque al coraz??n ??? Insuficiencia renal ??? Infecci??n por VIH ??? Infecciones de la piel ??? Otras infecciones de trasmisi??n sexual ??? Infecciones graves y mortales de la v??lvula del coraz??n ??? Coma y muerte ?? Cuidados en el hogar ??? Admita que tiene un problema con las drogas. Pida ayuda a oralia familiares, amigos cercanos y al proveedor de atenci??n m??dica. ??? Busque ayuda profesional. Puede hacer psicoterapia individual o acudir a ozzy asesor??a psicol??gica, o participar de un programa de tratamientopara la farmacodependencia. El programa de tratamiento para las drogas puede ser ambulatorio o residencial. ?nase a un zita de autoayuda para personas que abusan de las drogas. ??? Al??nano de los amigos, familiares y conocidos que abusan de las drogas o que lo tientan a continuar con abad h??bito. ??? Mantenga ozzy alimentaci??n saludable. Vaishnavi alguna actividad f??abraham de forma regular. ?? Atenci??n de seguimiento Asista a las citas de seguimiento con el proveedor de atenci??n m??dica, o seg??n le hayan indicado. Contacte a alguno de los recursos que se enumeran a continuaci??n para recibir ayuda: ??? Consejo Nacional sobre Alcoholismo y Dependencia de [place] (National [place] on Alcoholism and Drug Dependence) en ncaddms.org/ ??? Administraci??n de Servicios de [place] Mental y Abuso de Sustancias (Substance Abuse and Mental Health Services Administration) en www.samhsa.gov/find-treatment o al??314-057-VHRN ([phone]) ?? Cu??ndo llamar al?? 911 Llame al?? 911 si tiene algo de lo siguiente:? Convulsiones ??? Dificultad para respirar o respiraci??n lenta e irregular ??? Dolor de pecho ??? Debilidad repentina de un lado del cuerpo o dificultad repentina para hablar ??? Topher somnolencia o problemas para despertarse ??? Desmayo o p??rdida del conocimiento ??? Frecuencia card??keren acelerada ??? Frecuencia card??keren muy lenta ?? Cu??ndo debe buscar atenci??n m??dica Llame al proveedor de atenci??n m??dica de inmediato ante cualquiera de las siguientes situaciones:??? S??ntomas de abstinencia. Estos incluyen agitaci??n, ansiedad, temblores, sudoraci??n, diarrea,incapacidad para dormir. ??? Fiebre de 100.4?F (38?C) o superior, o seg??n lo que le haya indicado parra proveedor de atenci??n m??dica ??? Demasiada somnolencia o imposibilidad para despertarse ??? Enrojecimiento, hinchaz??n o sensibilidad en el sitio de la inyecci??n ?? Last Reviewed Date: 2021 ?? 2886-9010 The vivit. Todos los derechos reservados. Esta informaci??n no pretende sustituir la atenci??n m??dica profesional. S??lo parra m??dico puede diagnosticar y tratar un problema de lexi. ?? Patient Care team information Care Team Personnel Name: Rob Rubin NP Position: [facility] Associate Professional Member Role: PCP Address: Address: [address] [place] [address]- Name: Hali Gage RN Position: [facility] RN Member Role: Primary Care Nurse Name: Oliva Richey RN Position: [facility] RN Member Role: Primary Care Nurse Name: Alex Dolan RN Position: [facility] SN RN Member Role: Primary Care Nurse Name: Erica Alanis RN Position: [facility] RN Member Role: Primary Care Nurse Name: Shantel Freeman RN Position: [facility] RN Member Role: Primary Care Nurse Name: Janelle Browne RN Position: [facility] RN Member Role: Primary Care Nurse Name: Mari Jack RN Position: [facility] RN Member Role: Primary Care Nurse Name: Roshni Kenny RN Position: [facility] RN Member Role: Primary Care Nurse Name: Madeleine Shaikh RN Position: [facility] ED RN W/OE and Tasks Member Role: Patient Care Provider Name: Timothy Torres MD Position: [facility] Resident Member Role: ED Resident Address: Address: [address] [place] [address]- Name: Aby Rodriguez DO Position: [facility] Resident Member Role: Admitting Physician Address: Address: [address] [place] [address]- Name: Renae Levi Position: [facility] ED [facility] Care Team Related Persons Name: NEGRITO MEJIA Address: home [address] [address] Name: TAQUERIA MURILLO Address: home [address] [place] [address] Name: TAQUERIA MURILLO Address: home [address] [place] [address]
--- OUTSIDE RECORDS SUMMARY | 2023-04-23 14:04 | XMS_ITS | Continuity of Care Document ---
Author Name Unknown Organization [facility] Address [address] [place] [id number]- Care Team Providers Care Steamboat Inspector Name Role Phone Scottie PACK, Rob Primary Care Physician Encounter [facility] ACCT R [id number] Date(s): 01/08/23 - 02/07/[address] [address] Allergies, Adverse Reactions, Alerts No Known Allergies Immunizations Given and Recorded Vaccine Date Status Refusal Reason tetanus/diphtheria/pertussis, acel(Tdap) 09/18/15 Given Medications albuterol 0.083% inhalation solution 3 mL = 2.5 mg, Inhalation, Every 6 hours, PRN for wheezing, # 60 each, 3 Refills, Maintenance, 07/30/22 12:34:00 EST, Solution, [id number], instructions in Monegasque please, 182.88, cm, 07/30/22 10:06:00 EST, Height, [...] 12:34:00 EST, Aerosol, Route to Pharmacy Electronically, [id number], [facility] #[id number], instructions in iranian please, 18... Start Date: 07/30/22 Status: Ordered ARIPiprazole 5 mg oral tablet 5 mg, 1, tablet, By Mouth, Daily, # 90 tablet, Refills 0, Tot. Refills 0, Maintenance, 01/18/23 10:52:00 EDT, Route to Pharmacy Electronically, [facility] #[id number], Partial fill upon patient request if the [...] 1 Refills, Maintenance, 01/18/23 10:53:00 EDT, Tablet, [facility] #[id number], Partial fill upon patient request if the [...] 0 Refills, Soft Stop, 01/18/23 10:46:00 EDT, [facility] #[id number], Partial fill upon patient request if the [...] Refills, Maintenance, 01/18/23 10:53:00 EDT, CR Tablet, [facility] #[id number], please write all of this patient's medication in Monegasque, 178, cm, 01/18/23 9:57:00 EDT, Height, 110, kg, 01/06/23 1... Start Date: 01/18/23 Stop Date: 10/15/23 Status: Ordered SEROquel 100 mg oral tablet 100 mg, 1, tablet, By Mouth, Daily, para dormir, # 90 tablet, Refills 1, Tot. Refills 1, Maintenance, 01/18/23 10:53:00 EDT, Route to Pharmacy Electronically, [facility] #[id number], Partial fill upon patient request if the prescription is for a... Start Date: 01/18/23 Stop Date: 07/17/23 Status: Ordered sertraline 100 mg oral tablet 1 tablet = 100 mg, By Mouth, Daily, para la presion, # 90 tablet, 1 Refills, Maintenance, 09/15/22 17:27:00 EDT, Tablet, [facility] #[id number], to replace 50mg, 182.88, cm, 09/15/22 16:16:00 [...] use disorder Confirmed Active LTSS Andree Dhaliwal [facility] [phone] Confirmed Active Prediabetes Confirmed Active Itching of male genitalia Confirmed Active Encounter for screening colonoscopy Confirmed Active Social History Social History Type Response Smoking Status Never (less than 100 in lifetime) entered on: 10/27/21 Sex Patient Care team information Care Team Personnel Name: Rob Rubin NP Position: [facility] Associate Professional Member Role: PCP Address: Address: [address] [place] [address]- Name: Hali Gage RN Position: S RN Member Role: Primary Care Nurse Name: Oliva Richey RN Position: [facility] RN Member Role: Primary Care Nurse Name: Alex Dolan RN Position: [facility] SN RN Member Role: Primary Care Nurse Name: Erica Alanis RN Position: [facility] RN Member Role: Primary Care Nurse Name: Shantel Freeman RN Position: [facility] RN Member Role: Primary Care Nurse Name: Janelle Browne RN Position: [facility] RN Member Role: Primary Care Nurse Name: Mari Jack RN Position: [facility] RN Member Role: Primary Care Nurse Name: Red Mahmood RN Position: [facility] RN Member Role: Primary Care Nurse Name: Roshni Kenny RN Position: [facility] RN Member Role: Primary Care Nurse Care Team Related Persons Name: NEGRITO MEJIA Address: home [address] [place] [address] Name: TAQUERIA MURILLO Address: home [address] [place] [address] Name: TAQUERIA MURILLO Address: home [address] [place] [address]
--- OUTSIDE RECORDS SUMMARY | 2023-04-23 14:04 | XMS_ITS | Continuity of Care Document ---
Author Name Unknown Organization [facility] Address [address] [place] [address]- Care Team Providers Care Stereo Equipment Installer Name Role Phone Scottie PACK, Rob Primary Care Physician [place] [facility] 04/23/22 - 06/25/[address] [address]- Attending Physician: Not on Staff, Attending MD [...] 4 Refills, Maintenance, 11/03/21 13:43:00 EDT, Powder, [facility]pharm[facility] #[id number], 2 puffs Inhalation Every 4 hours,PRN:as... [...] 0 Refills, Maintenance, 04/30/22 15:10:00 EST, Tablet, [facility]/pharm[facility] #[id number], to replace 50mg, 182.88, cm, 04/30/22 14:42:00 [...] Personnel Name: Rob Rubin NP Position: [facility] Associate Professional Member Role: PCP Address: Address: [address] [place] [address] Name: Hali Gage RN Position: S RN Member Role: Primary Care Nurse Name: Oliva Richey RN Position: S RN Member Role: Primary Care Nurse Name: Alex Dolan RN Position: [facility] SN RN Member Role: Primary Care Nurse Name: Erica Alanis RN Position: [facility] RN Member Role: Primary Care Nurse Name: Shantel Freeman RN Position: [facility] RN Member Role: Primary Care Nurse Name: Janelle Browne RN Position: [facility] RN Supv Member Role: Primary Care Nurse Name: Mari Jack RN Position: [facility] RN Member Role: Primary Care Nurse Name: Kayla Miller RN Position: [facility] RN Member Role: Primary Care Nurse Name: Shazia Jorgensen RN Position: [facility] RN Member Role: Primary Care Nurse Name: Red Mahmood RN Position: [facility] RN Member Role: Primary Care Nurse Name: Roshni Kenny RN Position: [facility] RN Member Role: Primary Care Nurse Care Team Related Persons Name: NEGRITO MEJIA Address: home [address] [place] [id number] Name: TAQUERIA MURILLO Address: home [address] [place] [address] Name: TAQUERIA MURILLO Address: home [address] [place] [address]
== END 2023-04-23 14:36 | disposition home or self-care (01) ==
PROVIDERS: PCP Nurse Practitioner Family; Visit Provider Nurse Practitioner Family
DX: N52.9 Male erectile dysfunction, unspecified (principal); E29.1 Testicular hypofunction
CPT/HCPCS: 99213

== ENCOUNTER → 2023-04-23 13:59 | Outpatient (BNVA) | payer OTHER, SELFPAY | PROVIDERS: PCP Nurse Practitioner Family; Visit Provider Nurse Practitioner Family | DX: N52.9 Male erectile dysfunction, unspecified (principal); E29.1 Testicular hypofunction | CPT/HCPCS: 81003; 99212 ==